=== PATIENT | female | born 1950 | race Caucasian/White ===

== ENCOUNTER 2020-12-11 20:18 | Inpatient (IN) | payer MEDICARE ==
[~2020-12-11] VITALS: Ht 165.1 cm; Wt 55.3 kg
[2020-12-11] MEDS ORDERED: diphenhydrAMINE HCL 25 MG CAPSULE PO PRN (22:00)
[2020-12-11] MEDS ORDERED: ALPRAZolam 0.5 MG TABLET PO PRN (22:00)
[2020-12-11] MEDS ORDERED: ALBUTEROL SULFATE 2.5 MG/3 ML NEBU. IH PRN (22:00)
[2020-12-11] MEDS ORDERED: DIPH25CA58 PO (22:06)
[2020-12-11] MEDS ORDERED: BENZ0.5T32 PO (22:06)
[2020-12-11] MEDS ORDERED: FLUT9.9S NS (22:06)
[2020-12-11] MEDS ORDERED: PYRI50CA PO (22:06)
[2020-12-11] MEDS ORDERED: OLAN5TAB99 PO (22:06)
[2020-12-11] MEDS ORDERED: ALPR0.5T PO (22:06)
[2020-12-11] MEDS ORDERED: VITA100T7 PO (22:06)
[2020-12-11] MEDS ORDERED: GINK30CA PO (22:06)
[2020-12-11] MEDS ORDERED: ALBU2.5V8 IH (22:06)
[2020-12-11] MEDS ORDERED: TRAZ-120 PO (22:06)
[2020-12-11 22:47] VITALS: BP 150/65
[2020-12-11] MEDS: BENZTROPINE MESYLATE 0.5 MG TABLET PO SCH (23:04)
[2020-12-11] MEDS: traZODone 50 MG TABLET. PO PRN (23:04)
[2020-12-11] MEDS: ALPRAZolam 0.5 MG TABLET PO SCH (23:04)
[2020-12-11] MEDS ORDERED: ACETAMINOPHEN 325 MG TABLET PO PRN (23:15)
[2020-12-11] MEDS ORDERED: MAG HYDROX/AL HYDROX/SIMETH 30 ML ORAL.SUSP PO PRN (23:15)
[2020-12-11] MEDS ORDERED: MAGNESIUM HYDROXIDE 2,400 MG/30 ML ORAL.SUSP. PO PRN (23:15)
[2020-12-11] MEDS ORDERED: METHYL SALICYLATE/MENTHOL TOPICAL OINTMENT 57GM TUBE. TP PRN (23:15)
--- NOTE | 2020-12-12 00:09 | NUR ---
Admission Note with Justification for Admission to [facility] Patient admitted to [facility] for protective oversight for emergency stabilization of acute psychiatric crisis. Pt admitted from: Home Mode of arrival: POV Accompanied By: Family Precipitating behaviors that initiated intake and admission: Pt having manic episodes, paranoid, delusional, has had multiple losses over the last few years of family members. Has had decreased appetite, and not sleeping. Daughter states this began 3 weeks ago and that she and her aunt moved in with the patient. Description of failure of out patient attempts at stabilization in previous setting list behavior and medication trials: Pt was started on Seroquel, she had significant difficulties including severe EPS from it's initiation. Behaviors and assessment findings upon admission: Pt having severe EPS, with involuntary movements, flicking feet, legs and arms flailing about in her chair and bed, unable to control movements or speak with any fluency. Plan: Admit for protective oversight for adjustment and stabilization of medications, behaviors and mood. Intense treatment regimen including groups, medication adjustments, therapy, consistent regimen for ADL's, self care, and sleep hygiene. Daily monitoring by Inpatient staff, Psychiatry, and Medical Physician.
[2020-12-12 06:44] VITALS: BP 177/66
[2020-12-12 07:04] LABS: BASO % 0 % (0-3); EOS # 0.1 x10^3/uL (0.0-0.7); EOS % 1 % (0-3); HEMATOCRIT 43.7 % (36.0-47.0); HEMOGLOBIN 14.9 g/dL (12.0-15.5); LYMPH # 3.7 x10^3/uL (1.0-4.8); LYMPH % 37 % (24-48); MEAN CORPUSCULAR HEMOGLOBIN 31 pg (25-35); MEAN CORPUSCULAR HGB CONC 34 g/dL (31-37); MEAN CORPUSCULAR VOLUME 92 fL (79-100); MONO # 0.7 x10^3/uL (0.0-1.1); MONO % 7 % (0-9); NEUT # 5.3 x10^3uL (1.8-7.7); NEUT % 54 % (31-73); PLATELET COUNT 403 x10^3/uL (140-400); RED BLOOD COUNT 4.76 x10^6/uL (3.50-5.40); WHITE BLOOD COUNT 9.8 x10^3/uL (4.0-11.0)
[2020-12-12 07:10] LABS: ALBUMIN 4.5 g/dL (3.4-5.0); ALBUMIN/GLOBULIN RATIO 1.3 (1.0-1.7); CALCIUM 9.6 mg/dL (8.5-10.1); CREATININE 0.9 mg/dL (0.6-1.0); GFR 61.5; MAGNESIUM 2.6 mg/dL (1.8-2.4); POTASSIUM 4.2 mmol/L (3.5-5.1); TOTAL BILIRUBIN 1.1 mg/dL (0.2-1.0); TOTAL PROTEIN 7.9 g/dL (6.4-8.2)
[2020-12-12 07:16] LABS: BILIRUBIN,URINE NEG (NEG); CLARITY,URINE CLEAR; COLOR,URINE YELLOW; GLUCOSE,URINE NEG (NEG); NITRITE,URINE NEG (NEG)
[2020-12-12 07:17] LABS: BACTERIA,URINE FEW /HPF (0-FEW); RBC,URINE 0 /HPF (0-2); WBC,URINE RARE /HPF (0-4)
[2020-12-12] MEDS: ALPRAZolam 0.5 MG TABLET PO SCH ×3 (08:15→21:39)
[2020-12-12] MEDS: VITAMIN E 200 UNIT CAPSULE. PO SCH (08:16)
[2020-12-12] MEDS: PYRIDOXINE 50 MG TABLET. PO SCH (08:16)
[2020-12-12] MEDS ORDERED: GINKGO BILOBA LEAF EXTRACT 30 MG PO SCH (09:00)
[2020-12-12] MEDS ORDERED: OMEP20CA16 PO (10:52)
--- NOTE | 2020-12-12 13:20 | NUR ---
ACTIVITY THERAPY ASSESSMENT completed based on notes,observation and interview. Pt was compliant and willing to answer questions. Pt was standing against the wall in the hallway. AT explained group that were offered on [facility] and asked pt what activities she enjoys. Pt said that she likes yoga, exercise and [employer] [place] [employer]. Pt was able to answer orientation questions without error. AT asked about her family and pt said that her three and half years ago. Pt reports that she also has one daughter that she has close contact with. Pt reports that she also spends a lot of her time with her sister and her grandchildren. 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 AT then asked pt what initiated her admission and she said that it was fear. She said she fears people, she is paranoid, and anxious. Pt talked about finding her daughters father after he committed suicide. She said that he left his head under the water in a rain barrel. She later found him and said that she did not know what to do. Pt said that she is still trying to process the that has occurred. Pt said that at times she blames herself but she is trying to get over it. AT consoled pt and she appeared to be in better spirits at the end of assessment. AT offered pt some leisure materials but politely declined. Pt was met by nurse, and she then asked for her inhaler. Initial goal aimed to increase stress management and relaxation skills. Pt will participate in at least five group Activity Therapy sessions per week.
[2020-12-12] MEDS: FLUTICASONE 50MCG/NASAL SPRAY 16GM BOTTLE. NS PRN (13:31)
[2020-12-12] MEDS: ALBUTEROL SULFATE 8GM INHALER. INH PRN (13:31)
[2020-12-12 14:14] LABS: THYROXINE 9.5 ug/dL (4.5-12.0)
[2020-12-12 15:37] LABS: THYROID STIM HORMONE (TSH) 1.933 uIU/mL (0.358-3.740)
[2020-12-12 16:01] VITALS: BP 107/74
[2020-12-12] MEDS ORDERED: BENZTROPINE MESYLATE 0.5 MG TABLET PO SCH (21:00)
[2020-12-12] MEDS: BENZTROPINE MESYLATE 0.5 MG TABLET PO SCH (21:39)
--- NOTE | 2020-12-12 22:07 | PDOC ---
Exam Note: Carlos Note: Please also refer to the separate dictated note~for this date of service dictated separately.~Patient seen individually. Discussed the patient with Nursing staff reviewed the chart.~Reviewed interim history and current functioning. Reviewed vital signs,~Labs/ Radiology~and current medications noted below. Continue current treatment with the changes noted in the dictated addendum note Assessment: Vital Signs/I&O: Vital Signs Date Time Temp Pulse Resp B/P (MAP) Pulse Ox O2 Delivery O2 Flow Rate FiO2 12/12/20 16:01 98.1 92 20 107/74 (85) 98 Room Air Labs: Laboratory Tests Test 12/12/20 06:00 12/12/20 06:18 12/12/20 08:11 Urine Collection Type Void Urine Color Yellow Urine Clarity Clear Urine pH 7.0 Urine Specific [place] 1.025 Urine Protein Neg (NEG-TRACE) Urine Glucose (UA) Neg mg/dL (NEG) Urine Ketones (Stick) Trace mg/dL (NEG) Urine Blood Neg (NEG) Urine Nitrite Neg (NEG) Urine Bilirubin Neg (NEG) Urine Urobilinogen Dipstick 1.0 mg/dL (0.2 mg/dL) Urine Leukocyte Esterase Small (NEG) Urine RBC 0 /HPF (0-2) Urine WBC Rare /HPF (0-4) Urine Bacteria Few /HPF (0-FEW) White Blood Count 9.8 x10^3/uL (4.0-11.0) Red Blood Count 4.76 x10^6/uL (3.50-5.40) Hemoglobin 14.9 g/dL (12.0-15.5) Hematocrit 43.7 % (36.0-47.0) Mean Corpuscular Volume 92 fL (79-100) Mean Corpuscular Hemoglobin 31 pg (25-35) Mean Corpuscular Hemoglobin Concent 34 g/dL (31-37) Red Cell Distribution Width 13.0 % (11.5-14.5) Platelet Count 403 x10^3/uL (140-400) H Neutrophils (%) (Auto) 54 % (31-73) Lymphocytes (%) (Auto) 37 % (24-48) Monocytes (%) (Auto) 7 % (0-9) Eosinophils (%) (Auto) 1 % (0-3) Basophils (%) (Auto) 0 % (0-3) Neutrophils # (Auto) 5.3 x10^3uL (1.8-7.7) Lymphocytes # (Auto) 3.7 x10^3/uL (1.0-4.8) Monocytes # (Auto) 0.7 x10^3/uL (0.0-1.1) Eosinophils # (Auto) 0.1 x10^3/uL (0.0-0.7) Basophils # (Auto) 0.0 x10^3/uL (0.0-0.2) D-Dimer (Gu[place]upe) 0.48 mg/L (0.00-0.50) Sodium Level 144 mmol/L (136-145) Potassium Level 4.2 mmol/L (3.5-5.1) Chloride Level 106 mmol/L (98-107) Carbon Dioxide Level 24 mmol/L (21-32) Anion Gap 14 (6-14) Blood Urea Nitrogen 19 mg/dL (7-20) Creatinine 0.9 mg/dL (0.6-1.0) Estimated GFR (Cockcroft-Gault) 61.5 BUN/Creatinine Ratio 21 (6-20) H Glucose Level 102 mg/dL (70-99) H Calcium Level 9.6 mg/dL (8.5-10.1) Magnesium Level 2.6 mg/dL (1.8-2.4) H Iron Level 72 ug/dL (50-170) Total Iron Binding Capacity 286 ug/dL (250-450) Iron Saturation 25 % (15-34) Total Bilirubin 1.1 mg/dL (0.2-1.0) H Aspartate Amino Transferase (AST) 21 U/L (15-37) Alanine Aminotransferase (ALT) 39 U/L (14-59) Alkaline Phosphatase 87 U/L (46-116) Total Protein 7.9 g/dL (6.4-8.2) Albumin 4.5 g/dL (3.4-5.0) Albumin/Globulin Ratio 1.3 (1.0-1.7) Triglycerides Level 168 mg/dL (0-150) H Cholesterol Level 271 mg/dL (0-200) H LDL Cholesterol, Calculated 179 mg/dL (0-100) H VLDL Cholesterol, Calculated 33 mg/dL (0-40) Non-HDL Cholesterol Calculated 212 mg/dL (0-129) H HDL Cholesterol 59 mg/dL (40-60) Cholesterol/HDL Ratio 4.0 Vitamin B12 Level 1257 pg/mL (247-911) H 25-Hydroxy Vitamin D Total 57.5 ng/mL (30-100) Thyroid Stimulating Hormone (TSH) 1.933 uIU/mL (0.358-3.740) Thyroxine (T4) 9.5 ug/dL (4.5-12.0) Total Triiodothyronine (TT3) 112 ng/dL (71-180) Treponema pallidum Antibody Nonreactive (Nonreactive) Glucose (Fingerstick) 108 mg/dL (70-99) H Current Medications: Meds: Laboratory Tests Test 12/12/20 06:00 12/12/20 06:18 12/12/20 08:11 Urine Collection Type Void Urine Color Yellow Urine Clarity Clear Urine pH 7.0 Urine Specific [place] 1.025 Urine Protein Neg Urine Glucose (UA) Neg mg/dL Urine Ketones (Stick) Trace mg/dL Urine Blood Neg Urine Nitrite Neg Urine Bilirubin Neg Urine Urobilinogen Dipstick 1.0 mg/dL Urine Leukocyte Esterase Small Urine RBC 0 /HPF Urine WBC Rare /HPF Urine Bacteria Few /HPF White Blood Count 9.8 x10^3/uL Red Blood Count 4.76 x10^6/uL Hemoglobin 14.9 g/dL Hematocrit 43.7 % Mean Corpuscular Volume 92 fL Mean Corpuscular Hemoglobin 31 pg Mean Corpuscular Hemoglobin Concent 34 g/dL Red Cell Distribution Width 13.0 % Platelet Count 403 x10^3/uL Neutrophils (%) (Auto) 54 % Lymphocytes (%) (Auto) 37 % Monocytes (%) (Auto) 7 % Eosinophils (%) (Auto) 1 % Basophils (%) (Auto) 0 % Neutrophils # (Auto) 5.3 x10^3uL Lymphocytes # (Auto) 3.7 x10^3/uL Monocytes # (Auto) 0.7 x10^3/uL Eosinophils # (Auto) 0.1 x10^3/uL Basophils # (Auto) 0.0 x10^3/uL D-Dimer ([place]) 0.48 mg/L Sodium Level 144 mmol/L Potassium Level 4.2 mmol/L Chloride Level 106 mmol/L Carbon Dioxide Level 24 mmol/L Anion Gap 14 Blood Urea Nitrogen 19 mg/dL Creatinine 0.9 mg/dL Estimated GFR (Cockcroft-Gault) 61.5 BUN/Creatinine Ratio 21 Glucose Level 102 mg/dL Calcium Level 9.6 mg/dL Magnesium Level 2.6 mg/dL Iron Level 72 ug/dL Total Iron Binding Capacity 286 ug/dL Iron Saturation 25 % Total Bilirubin 1.1 mg/dL Aspartate Amino Transf (AST/SGOT) 21 U/L Alanine Aminotransferase (ALT/SGPT) 39 U/L Alkaline Phosphatase 87 U/L Total Protein 7.9 g/dL Albumin 4.5 g/dL Albumin/Globulin Ratio 1.3 Triglycerides Level 168 mg/dL Cholesterol Level 271 mg/dL LDL Cholesterol, Calculated 179 mg/dL VLDL Cholesterol, Calculated 33 mg/dL Non-HDL Cholesterol Calculated 212 mg/dL HDL Cholesterol 59 mg/dL Cholesterol/HDL Ratio 4.0 Vitamin B12 Level 1257 pg/mL 25-Hydroxy Vitamin D Total 57.5 ng/mL Thyroid Stimulating Hormone (TSH) 1.933 uIU/mL Thyroxine (T4) 9.5 ug/dL Total Triiodothyronine 112 ng/dL Treponema pallidum Antibody Nonreactive Glucose (Fingerstick) 108 mg/dL Current Medications Medications (Trade) Dose Ordered Sig/Cathryn Route PRN Reason Start Time Stop Time Status Last Admin Dose Admin Albuterol Sulfate (Ventolin) 90 mg PRN QID PRN IH wheezing 12/11/20 22:00 UNV Alprazolam (Xanax) 0.5 mg PRN TID PRN PO ANXIETY / AGITATION 12/11/20 22:00 12/11/20 22:45 DC Benztropine Mesylate (Cogentin) 0.5 mg HS PO 12/12/20 21:00 12/11/20 22:45 DC Diphenhydramine HCl (Benadryl) 25 mg PRN Q4HRS PRN PO ANXIETY / AGITATION 12/11/20 22:00 Olanzapine (ZyPREXA ZYDIS) 2.5 mg PRN Q2HRS PRN PO ANXIETY / AGITATION 12/11/20 22:00 12/12/20 05:58 Trazodone HCl (Desyrel) 50 mg PRN QHS PRN PO INSOMNIA, MAY REPEAT X2 12/11/20 22:00 12/11/20 23:04 Fluticasone Propionate (Flonase) 2 spray PRN DAILY PRN NS ALLERGIES 12/11/20 22:30 12/12/20 13:31 Non-Formulary Medication (Ginkgo Biloba [place] Extract (Ginkgo Biloba)) 30 mg DAILY PO 12/12/20 09:00 UNV Pyridoxine HCl (Vitamin B-6) 50 mg DAILY PO 12/12/20 09:00 12/12/20 08:16 Vitamin E (Vitamin E) 200 unit DAILY PO 12/12/20 09:00 12/12/20 08:16 Albuterol Sulfate (Ventolin Hfa Inhaler) 2 puff PRN QID PRN INH SHORTNESS OF BREATH 12/11/20 22:30 12/12/20 13:31 Alprazolam (Xanax) 0.5 mg TID PO 12/11/20 22:45 12/12/20 21:39 Benztropine Mesylate (Cogentin) 0.5 mg HS PO 12/11/20 22:45 12/12/20 21:39 Acetaminophen (Tylenol) 650 mg PRN Q6HRS PRN PO MILD PAIN / TEMP > 100.3'F 12/11/20 23:15 Multi-Ingredient Ointment (Analgesic [place]) 1 dinora PRN QID PRN TP MUSCLE PAIN 12/11/20 23:15 Al Hydroxide/Mg Hydroxide (Mylanta Plus Xs) 15 ml PRN AFTMEALHC PRN PO DYSPEPSIA 12/11/20 23:15 Magnesium Hydroxide (Milk Of Magnesia) 2,400 mg PRN QHS PRN PO CONSTIPATION 12/11/20 23:15 Pantoprazole Sodium (Protonix) 40 mg DAILYAC PO 12/13/20 07:30 Current Medications Medications (Trade) Dose Ordered Sig/Cathryn Route PRN Reason Start Time Stop Time Status Last Admin Dose Admin Fluticasone Propionate (Flonase) 2 spray PRN DAILY PRN NS ALLERGIES 12/11/20 22:30 12/12/20 13:31 Pyridoxine HCl (Vitamin B-6) 50 mg DAILY PO 12/12/20 09:00 12/12/20 08:16 Vitamin E (Vitamin E) 200 unit DAILY PO 12/12/20 09:00 12/12/20 08:16 Albuterol Sulfate (Ventolin Hfa Inhaler) 2 puff PRN QID PRN INH SHORTNESS OF BREATH 12/11/20 22:30 12/12/20 13:31 Alprazolam (Xanax) 0.5 mg TID PO 12/11/20 22:45 12/12/20 21:39 Benztropine Mesylate (Cogentin) 0.5 mg HS PO 12/11/20 22:45 12/12/20 21:39 I have reviewed the current psychotropics carefully including drug interactions. Risk benefit ratio favors no change other than as noted in my dictated progress note. ERON MEDRANO MD Dec 12, 2020 22:07
[2020-12-13 01:17] LABS: HEMOGLOBIN A1C 5.5 % (4.8-5.6)
--- NOTE | 2020-12-13 02:16 | CONS ---
DATE OF CONSULTATION: 12/12/2020 ATTENDING PHYSICIAN: Dr. Medrano and Dr. Gunderson. CHIEF COMPLAINT: We are asked to see this patient for medical consultation. 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 She has been having insomnia, agitated, psychotic, experiences some delusional behavior and paranoid, thinking people are trying to kill her. She has had poor intake. She has tried different medicines as an outpatient without any improvement. She is admitted for further inpatient care. PAST MEDICAL HISTORY: Significant for depression, hyperlipidemia, fibromyalgia, gastroesophageal reflux disease, and degenerative arthritis. ALLERGIES: She has no known drug allergies. CURRENT MEDICATIONS: Reviewed. She was scheduled to take albuterol, alprazolam, diphenhydramine, fluticasone nasal spray, ginkgo biloba, Zyprexa, omeprazole, vitamin B6, trazodone, and vitamin E. SOCIAL HISTORY: She is a nonsmoker, nondrinker. FAMILY HISTORY: Noncontributory. 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 She had lived in [place] for many years before moving in with her daughter in [place]. REVIEW OF SYSTEMS: Significant for the psychiatric issues. No COVID exposure. All other systems reviewed and turned to be negative. PHYSICAL EXAMINATION: GENERAL: When I saw her, this is a very alert, pleasant female who was ____ in her speech and gave a relevant history. VITAL SIGNS: Initial vital signs showed a blood pressure of 150/65 mmHg, pulse is 75 and regular. She was afebrile, oxygen saturation 98% on room air. HEENT: Head is without trauma. Pupils are reactive. Sclerae is nonicteric. Oropharynx is clear. NECK: Supple, no bruits. LUNGS: Otherwise, clear to auscultation. CARDIOVASCULAR: Showed regular heart tones. No gallops. Peripheral pulses are palpable and full. ABDOMEN: Soft, scaphoid, nontender, no organomegaly. Bowel sounds were hypoactive. EXTREMITIES: Show no cyanosis or edema. NEUROLOGIC: Focally intact. Speech is fluent and fully ambulatory. SKIN: Warm and dry. PERTINENT LABORATORY STUDIES: Her hemoglobin on admission was 14.9 g/dL with a white count of 9800. Electrolytes all within normal range. Nonfasting blood sugar 108. Transaminases were within normal range. ASSESSMENT: 1. A 70-year-old female with paranoid behavior with delusions. 2. Probable dementia. 3. Generalized anxiety disorder. 4. Gastroesophageal reflux disease. PLAN/RECOMMENDATIONS: 1. The patient is stable from medical standpoint. 2. I reviewed her medications and they should be continued the same dosages. Thank you again for asking me to see the patient for medical consultation. We should gladly follow along during her inpatient course. LAURA/FAZAL DR: Christos TID: [id number] CC: ERON MEDRANO MD
[2020-12-13 05:09] VITALS: BP 101/62
[2020-12-13] MEDS: PYRIDOXINE 50 MG TABLET. PO SCH (09:00)
[2020-12-13] MEDS: PANTOPRAZOLE 40 MG TABLET. PO SCH (09:09)
[2020-12-13] MEDS: VITAMIN E 200 UNIT CAPSULE. PO SCH (09:09)
[2020-12-13] MEDS: ALPRAZolam 0.5 MG TABLET PO SCH ×3 (09:09→20:26)
--- NOTE | 2020-12-13 10:52 | NUR ---
Pt has been appropriate this shift. A&Ox4, she takes significant pauses when answering assessment questions. Absent of AI/HI/VH/AH/delusions at this time, she denies pain when asked. She has noticeable shaking/jerking in her torso during assessment, daughter states the shaking did not start until shortly after starting Seroquel at home and family believes she has EPS. Will pass to Dr Alcaraz during rounds. Pt is compliant with whole medications. After breakfast she retired back to bed and has been napping. Plan of care continues, will pass to next shift. Addendum: 12/13/20 at 1057 by RODRIGO MONTIEL RN Edit: Absent of ALPHONSE
[2020-12-13 15:52] VITALS: BP 139/79
[2020-12-13] MEDS: BENZTROPINE MESYLATE 0.5 MG TABLET PO SCH (20:26)
--- NOTE | 2020-12-13 22:00 | PDOC ---
Exam Note: Carlos Note: Please also refer to the separate dictated note~for this date of service dictated separately.~Patient seen individually. Discussed the patient with Nursing staff reviewed the chart.~Reviewed interim history and current functioning. Reviewed vital signs,~Labs/ Radiology~and current medications noted below. Continue current treatment with the changes noted in the dictated addendum note Assessment: Vital Signs/I&O: Vital Signs Date Time Temp Pulse Resp B/P (MAP) Pulse Ox O2 Delivery O2 Flow Rate FiO2 12/13/20 15:52 97.0 98 20 139/79 (99) 97 12/12/20 16:01 Room Air I & O 12/12/20 12/12/20 12/13/20 15:00 23:00 07:00 Intake Total 300 ml 480 ml Balance 300 ml 480 ml Labs: Laboratory Tests Test 12/13/20 07:12 Glucose (Fingerstick) 96 mg/dL (70-99) Current Medications: Meds: Laboratory Tests Test 12/13/20 07:12 Glucose (Fingerstick) 96 mg/dL Current Medications Medications (Trade) Dose Ordered Sig/Cathryn Route PRN Reason Start Time Stop Time Status Last Admin Dose Admin Albuterol Sulfate (Ventolin) 90 mg PRN QID PRN IH wheezing 12/11/20 22:00 UNV Alprazolam (Xanax) 0.5 mg PRN TID PRN PO ANXIETY / AGITATION 12/11/20 22:00 12/11/20 22:45 DC Benztropine Mesylate (Cogentin) 0.5 mg HS PO 12/12/20 21:00 12/11/20 22:45 DC Diphenhydramine HCl (Benadryl) 25 mg PRN Q4HRS PRN PO ANXIETY / AGITATION 12/11/20 22:00 Olanzapine (ZyPREXA ZYDIS) 2.5 mg PRN Q2HRS PRN PO ANXIETY / AGITATION 12/11/20 22:00 12/12/20 05:58 Trazodone HCl (Desyrel) 50 mg PRN QHS PRN PO INSOMNIA, MAY REPEAT X2 12/11/20 22:00 12/11/20 23:04 Fluticasone Propionate (Flonase) 2 spray PRN DAILY PRN NS ALLERGIES 12/11/20 22:30 12/12/20 13:31 Non-Formulary Medication (Ginkgo Biloba [place] Extract (Ginkgo Biloba)) 30 mg DAILY PO 12/12/20 09:00 UNV Pyridoxine HCl (Vitamin B-6) 50 mg DAILY PO 12/12/20 09:00 12/13/20 09:00 Vitamin E (Vitamin E) 200 unit DAILY PO 12/12/20 09:00 12/13/20 09:09 Albuterol Sulfate (Ventolin Hfa Inhaler) 2 puff PRN QID PRN INH SHORTNESS OF BREATH 12/11/20 22:30 12/12/20 13:31 Alprazolam (Xanax) 0.5 mg TID PO 12/11/20 22:45 12/13/20 20:26 Benztropine Mesylate (Cogentin) 0.5 mg HS PO 12/11/20 22:45 12/13/20 20:26 Acetaminophen (Tylenol) 650 mg PRN Q6HRS PRN PO MILD PAIN / TEMP > 100.3'F 12/11/20 23:15 Multi-Ingredient Ointment (Analgesic [place]) 1 dinora PRN QID PRN TP MUSCLE PAIN 12/11/20 23:15 Al Hydroxide/Mg Hydroxide (Mylanta Plus Xs) 15 ml PRN AFTMEALHC PRN PO DYSPEPSIA 12/11/20 23:15 Magnesium Hydroxide (Milk Of Magnesia) 2,400 mg PRN QHS PRN PO CONSTIPATION 12/11/20 23:15 Pantoprazole Sodium (Protonix) 40 mg DAILYAC PO 12/13/20 07:30 12/13/20 09:09 Current Medications Medications (Trade) Dose Ordered Sig/Cathryn Route PRN Reason Start Time Stop Time Status Last Admin Dose Admin Pantoprazole Sodium (Protonix) 40 mg DAILYAC PO 12/13/20 07:30 12/13/20 09:09 I have reviewed the current psychotropics carefully including drug interactions. Risk benefit ratio favors no change other than as noted in my dictated progress note. Diagnosis: Problems: (1) Anxiety disorder, unspecified ERON MEDRANO MD Dec 13, 2020 22:00
--- NOTE | 2020-12-13 23:07 | HP ---
ADMIT DATE: 12/12/2020 PSYCHIATRIC ADMISSION HISTORY AND EVALUATION This is a late entry, date of service, 12/12/2020, covers the elements not covered in my initial note. I met with the patient evening of 12/12/2020 on Telehealth rounds with Glendy Mares RN. Telehealth rounds have been instituted due to COVID-19 positive cases on the unit once again, both in 3 patients and 2 staff members. IDENTIFYING DATA: The patient is a 70-year-old female referred from home by her primary care physician on account of appearing manic, paranoid, delusional. Reportedly, she has had multiple losses in her family, with her passing away with questionable suicide and losses of other family members. She has had poor appetite, poor sleep. Has been unable to live alone independently starting three weeks back prior to which [place] [facility]. Currently, she is living for the past 3 weeks with her daughter and sister. CHIEF COMPLAINT: "Something changed about 3 weeks ago. I don't know what happened." HISTORY OF PRESENT ILLNESS: The patient states she has never been treated for a psychiatric disorder in the past. For the past three weeks, she has appeared paranoid, psychotic, quite obsessive, anxious, confused with poor sleep and appetite, marked anxiety, obsessiveness and psychotic symptoms. No active suicidal or homicidal ideation. She has been intermittently hyperverbal. PAST PSYCHIATRIC HISTORY: As above. MEDICAL HISTORY: Asthma, hyperlipidemia, fibromyalgia, GERD, osteoarthritis, history of paroxysmal ventricular contractions. Accu-Cheks: None. CODE STATUS: Full code. ALLERGIES: The patient was prescribed SEROQUEL at home and states she developed tremors, extrapyramidal side effects from it and feels she is allergic to it. MRI head was done recently reportedly was unremarkable. FAMILY HISTORY: Noncontributory. SOCIAL HISTORY: As noted above. No alcohol; drug abuse; physical, sexual or elder abuse. She is not known to be a perpetrator. Reaction to hospitalization: The patient is well oriented and accepting of this. According to Glendy Mares RN at admission on 12/11/2020, the patient was extremely disorganized, confused, paranoid and all this had up by the time I saw her on the evening of 12/12/2020. REVIEW OF SYSTEMS: No CV, , pulmonary, eye, ENT system symptoms on review. MENTAL STATUS EXAM: The patient is reasonably oriented. Speech coherent, rapid at times. Abstraction fair. Computation impaired. Language function intact. Attention span short. Mood and affect remains labile, anxious, hyperverbal. No suicidal or homicidal ideation. LABORATORY DATA: Reviewed. IMPRESSION: History of major depressive disorder, recurrent versus bipolar disorder, mixed episode with psychotic features; mild cognitive impairment; anxiety disorder, unspecified, rule out obsessive compulsive disorder. Rest diagnoses as above. PLAN: Admit to geropsychiatry unit at [facility]. I will see the patient daily individually from a psychiatric standpoint, medical followup with Dr. Aleman/Dr. Gunderson. Continue current psychotropics. Perhaps consult Dr. 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 We will consider starting on Cymbalta or Wellbutrin. Considering mood stabilizer, perhaps Lamictal post baseline assessment. ESTIMATED LENGTH OF STAY: 10-12 days. DISPOSITION PLAN: Discharge back home with family if clinically appropriate. MIKE/EKT DR: MIKE/benigno TID: [id number]
--- NOTE | 2020-12-13 23:17 | NUR ---
Patient is located in the day room for assessments and medications. She does not answer questions verbally when asked, only nodding her head. She is jerking her legs sporadically. Compliant with medications whole. Denies SI. Denies any pain or discomfort. She appears to be sleeping comfortably at present time. Will continue to monitor.
[2020-12-14] MEDS: VITAMIN E 200 UNIT CAPSULE. PO SCH (05:08)
[2020-12-14] MEDS: ALPRAZolam 0.5 MG TABLET PO SCH ×3 (05:08→19:55)
[2020-12-14] MEDS: PYRIDOXINE 50 MG TABLET. PO SCH (05:08)
[2020-12-14] MEDS: PANTOPRAZOLE 40 MG TABLET. PO SCH (05:08)
[2020-12-14 06:20] VITALS: BP 129/57
--- NOTE | 2020-12-14 08:44 | PDOC ---
Exam Note: Carlos Note: This note is a late entry for 12/13/2020 covers elements not covered in my initial note. Subjective: The patient was reviewed on telehealth rounds on 12/13/2020 due to the COVID-19 pandemic. Discussed with Stephenie RUTH and reviewed the chart. She slept for 7 hours previous night. Previous evening the patient was somewhat delusional and anxious. Today she remains alert and oriented. She continues to have some involuntarily movements and we will consult Dr. Newberry, Neurology for this. Reportedly the daughter feels this is contributed by the Seroquel though it seems very unlikely given the dosage of Seroquel she was on the duration and the fact it persisted for several days despite the stopping the Seroquel and using Cogentin and Benadryl. Last evening as I met with her she was very verbal, interactive, somewhat hyperverbal at times, appropriate coherent history. Today she had difficulties connecting her thoughts and would not respond verbally as I questioned her about her day and orientation. Review of Systems: No CV, , pulmonary, eye, ENT system symptoms on review but she is not forthcoming as I questioned her. Mental Status Exam: The patient is alert and oriented to herself and situation. Speech moderate to marked latency, not verbally responsive. Abstraction fair. Computation impaired. Language function intact. Attention span short. Mood and affect withdrawn. Laboratory Data: Reviewed. Impression: Major depressive disorder with psychotic features. Anxiety disorder unspecified. Rule out bipolar disorder mixed with psychotic features. Rule out mild cognitive impairment. Rest unchanged from admission. Plan: Continue current psychotropics including Xanax 0.5 mg t.i.d., Cogentin 0.5 mg h.s., Benadryl, Zyprexa, and trazodone p.r.n. We will go ahead and start her on Cymbalta 30 mg a day for her mood and anxiety symptoms. Consider restarting Seroquel or perhaps Risperdal, Geodon, or Abilify for her questionable psychotic symptoms. We will make further adjustments as clinically indicated. Assessment: Vital Signs/I&O: Vital Signs Date Time Temp Pulse Resp B/P (MAP) Pulse Ox O2 Delivery O2 Flow Rate FiO2 12/14/20 06:20 97.7 68 16 129/57 (81) 96 12/12/20 16:01 Room Air I & O 12/13/20 12/13/20 12/14/20 15:00 23:00 07:00 Intake Total 840 ml 720 ml Balance 840 ml 720 ml Labs: Laboratory Tests Test 12/14/20 07:16 Glucose (Fingerstick) 85 mg/dL (70-99) Current Medications: Meds: Laboratory Tests Test 12/14/20 07:16 Glucose (Fingerstick) 85 mg/dL Current Medications Medications (Trade) Dose Ordered Sig/Cathryn Route PRN Reason Start Time Stop Time Status Last Admin Dose Admin Albuterol Sulfate (Ventolin) 90 mg PRN QID PRN IH wheezing 12/11/20 22:00 UNV Alprazolam (Xanax) 0.5 mg PRN TID PRN PO ANXIETY / AGITATION 12/11/20 22:00 12/11/20 22:45 DC Benztropine Mesylate (Cogentin) 0.5 mg HS PO 12/12/20 21:00 12/11/20 22:45 DC Diphenhydramine HCl (Benadryl) 25 mg PRN Q4HRS PRN PO ANXIETY / AGITATION 12/11/20 22:00 Olanzapine (ZyPREXA ZYDIS) 2.5 mg PRN Q2HRS PRN PO ANXIETY / AGITATION 12/11/20 22:00 12/12/20 05:58 Trazodone HCl (Desyrel) 50 mg PRN QHS PRN PO INSOMNIA, MAY REPEAT X2 12/11/20 22:00 12/11/20 23:04 Fluticasone Propionate (Flonase) 2 spray PRN DAILY PRN NS ALLERGIES 12/11/20 22:30 12/12/20 13:31 Non-Formulary Medication (Ginkgo Biloba [place] Extract (Ginkgo Biloba)) 30 mg DAILY PO 12/12/20 09:00 UNV Pyridoxine HCl (Vitamin B-6) 50 mg DAILY PO 12/12/20 09:00 12/14/20 05:08 Vitamin E (Vitamin E) 200 unit DAILY PO 12/12/20 09:00 12/14/20 05:08 Albuterol Sulfate (Ventolin Hfa Inhaler) 2 puff PRN QID PRN INH SHORTNESS OF BREATH 12/11/20 22:30 12/12/20 13:31 Alprazolam (Xanax) 0.5 mg TID PO 12/11/20 22:45 12/14/20 05:08 Benztropine Mesylate (Cogentin) 0.5 mg HS PO 12/11/20 22:45 12/13/20 20:26 Acetaminophen (Tylenol) 650 mg PRN Q6HRS PRN PO MILD PAIN / TEMP > 100.3'F 12/11/20 23:15 Multi-Ingredient Ointment (Analgesic [place]) 1 dinora PRN QID PRN TP MUSCLE PAIN 12/11/20 23:15 Al Hydroxide/Mg Hydroxide (Mylanta Plus Xs) 15 ml PRN AFTMEALHC PRN PO DYSPEPSIA 12/11/20 23:15 Magnesium Hydroxide (Milk Of Magnesia) 2,400 mg PRN QHS PRN PO CONSTIPATION 12/11/20 23:15 Pantoprazole Sodium (Protonix) 40 mg DAILYAC PO 12/13/20 07:30 12/14/20 05:08 I have reviewed the current psychotropics carefully including drug interactions. Risk benefit ratio favors no change other than as noted in my dictated progress note. Diagnosis: Problems: (1) Major depressive disorder with psychotic features (2) Anxiety disorder, unspecified (3) Bipolar disorder, current episode mixed, severe, with psychotic features (4) Mild cognitive impairment ERON MEDRANO MD Dec 14, 2020 08:44
--- NOTE | 2020-12-14 15:47 | NUR ---
Assumed pt care this am. Pt has been calm and cooperative for assessments and cares. Pt takes medication whole without difficulty. Pt still exhibiting jerky movements and startles easily. Pt has not verbalized anything today, the only questioned she has answered out loud was her birthday. She has nodded in answer to questions though. She seems as though she wants to talk but cannot find the words or how to say it. Pt has stayed in her room except to come out for meals. Will continue to monitor.
[2020-12-14 16:17] VITALS: BP 129/87
[2020-12-14] MEDS: OLANZapine 2.5 MG TABLET PO SCH (19:55)
[2020-12-14] MEDS: BENZTROPINE MESYLATE 0.5 MG TABLET PO SCH (19:55)
--- NOTE | 2020-12-14 21:19 | NUR ---
Patient is located in her room for assessments and medications, awake in bed. Answers questions only occasionally with one word answers, but mostly nods yes or no to assessment questions. Continues to have involuntary movements, but they seem improved from this morning. Compliant with medications whole. Denies SI. Denies any pain or discomfort. She appears to be sleeping comfortably at present time. Will continue to monitor.
--- NOTE | 2020-12-14 21:56 | PDOC ---
Exam Note: Carlos Note: Please also refer to the separate dictated note~for this date of service dictated separately.~Patient seen individually. Discussed the patient with Nursing staff reviewed the chart.~Reviewed interim history and current functioning. Reviewed vital signs,~Labs/ Radiology~and current medications noted below. Continue current treatment with the changes noted in the dictated addendum note Assessment: Vital Signs/I&O: Vital Signs Date Time Temp Pulse Resp B/P (MAP) Pulse Ox O2 Delivery O2 Flow Rate FiO2 12/14/20 16:17 97.8 70 18 129/87 (101) 95 12/12/20 16:01 Room Air I & O 12/13/20 12/13/20 12/14/20 15:00 23:00 07:00 Intake Total 840 ml 720 ml Balance 840 ml 720 ml Labs: Laboratory Tests Test 12/14/20 07:16 Glucose (Fingerstick) 85 mg/dL (70-99) Current Medications: Meds: Laboratory Tests Test 12/14/20 07:16 Glucose (Fingerstick) 85 mg/dL Current Medications Medications (Trade) Dose Ordered Sig/Cathryn Route PRN Reason Start Time Stop Time Status Last Admin Dose Admin Albuterol Sulfate (Ventolin) 90 mg PRN QID PRN IH wheezing 12/11/20 22:00 UNV Alprazolam (Xanax) 0.5 mg PRN TID PRN PO ANXIETY / AGITATION 12/11/20 22:00 12/11/20 22:45 DC Benztropine Mesylate (Cogentin) 0.5 mg HS PO 12/12/20 21:00 12/11/20 22:45 DC Diphenhydramine HCl (Benadryl) 25 mg PRN Q4HRS PRN PO ANXIETY / AGITATION 12/11/20 22:00 Olanzapine (ZyPREXA ZYDIS) 2.5 mg PRN Q2HRS PRN PO ANXIETY / AGITATION 12/11/20 22:00 12/12/20 05:58 Trazodone HCl (Desyrel) 50 mg PRN QHS PRN PO INSOMNIA, MAY REPEAT X2 12/11/20 22:00 12/11/20 23:04 Fluticasone Propionate (Flonase) 2 spray PRN DAILY PRN NS ALLERGIES 12/11/20 22:30 12/12/20 13:31 Non-Formulary Medication (Ginkgo Biloba [place] Extract (Ginkgo Biloba)) 30 mg DAILY PO 12/12/20 09:00 UNV Pyridoxine HCl (Vitamin B-6) 50 mg DAILY PO 12/12/20 09:00 12/14/20 05:08 Vitamin E (Vitamin E) 200 unit DAILY PO 12/12/20 09:00 12/14/20 05:08 Albuterol Sulfate (Ventolin Hfa Inhaler) 2 puff PRN QID PRN INH SHORTNESS OF BREATH 12/11/20 22:30 12/12/20 13:31 Alprazolam (Xanax) 0.5 mg TID PO 12/11/20 22:45 12/14/20 19:55 Benztropine Mesylate (Cogentin) 0.5 mg HS PO 12/11/20 22:45 12/14/20 19:55 Acetaminophen (Tylenol) 650 mg PRN Q6HRS PRN PO MILD PAIN / TEMP > 100.3'F 12/11/20 23:15 Multi-Ingredient Ointment (Analgesic [place]) 1 dinora PRN QID PRN TP MUSCLE PAIN 12/11/20 23:15 Al Hydroxide/Mg Hydroxide (Mylanta Plus Xs) 15 ml PRN AFTMEALHC PRN PO DYSPEPSIA 12/11/20 23:15 Magnesium Hydroxide (Milk Of Magnesia) 2,400 mg PRN QHS PRN PO CONSTIPATION 12/11/20 23:15 Pantoprazole Sodium (Protonix) 40 mg DAILYAC PO 12/13/20 07:30 12/14/20 05:08 Olanzapine (ZyPREXA) 5 mg HS PO 12/14/20 21:00 12/14/20 19:55 Duloxetine HCl (Cymbalta) 30 mg DAILY PO 12/15/20 09:00 Current Medications Medications (Trade) Dose Ordered Sig/Cathryn Route PRN Reason Start Time Stop Time Status Last Admin Dose Admin Olanzapine (ZyPREXA) 5 mg HS PO 12/14/20 21:00 12/14/20 19:55 I have reviewed the current psychotropics carefully including drug interactions. Risk benefit ratio favors no change other than as noted in my dictated progress note. Diagnosis: Problems: (1) Anxiety disorder, unspecified (2) Major depressive disorder with psychotic features (3) Mild cognitive impairment (4) Bipolar disorder, current episode mixed, severe, with psychotic features ERON MEDRANO MD Dec 14, 2020 21:56
[2020-12-15 05:49] VITALS: BP 144/85
--- NOTE | 2020-12-15 06:32 | PDOC ---
Exam Note: Carlos Note: This note is a late entry for 12/14/2020 covers elements not covered in my initial note. Subjective: The patient was seen individually in the evening of 12/14/2020 with Essie RUTH, discussed and reviewed the chart. She slept for 7-1/2 hours previous night. The patient has been non-verbal. Often responses are monosyllabic. She seeing Dr. Newberry for movement disorder, results of consultation are awaited. She seems to startle very easily, anxious. Oral intake is poor. She seems paranoid, suspicious, scanning the environment. I met with her at some length in her room. Couple of evenings back when I met with her she was fully oriented and this presentation for the last about 40 hour s is similar to how it was when she was first admitted. Review of Systems: Positive for abnormal movements and she is anxious and easily startled. No CV, , pulmonary, eye, ENT system symptoms on review. Mental Status Exam: The patient is reasonably oriented but difficult to assess since she is not very verbal. Speech often response is monosyllabic. Abstraction fair. Computation impaired. Language function intact. Attention span short. Mood and affect somewhat withdrawn. As I initially entered her room she was standing by he panoramic window looking quite sad and out in the distance and anxious. Laboratory Data: Reviewed. Impression: Major depressive disorder with psychotic features. Anxiety disorder unspecified. Rule out bipolar disorder depressed with psychotic features. Mild cognitive impairment. Plan: Given the patients mood symptoms, we will start her on Cymbalta 30 mg a day for her mood and anxiety symptoms and she appears paranoid, somewhat suspicious, anxious with poor appetite. We will add Zyprexa 5 mg p.o. h.s. Continue rest of the psychotropics. Adjust further as clinically indicated. Assessment: Vital Signs/I&O: Vital Signs Date Time Temp Pulse Resp B/P (MAP) Pulse Ox O2 Delivery O2 Flow Rate FiO2 12/15/20 05:49 96.6 61 16 144/85 (104) 100 12/12/20 16:01 Room Air I & O 12/14/20 12/14/20 12/15/20 15:00 23:00 07:00 Intake Total 240 ml 300 ml Balance 240 ml 300 ml Labs: Laboratory Tests Test 12/14/20 07:16 Glucose (Fingerstick) 85 mg/dL (70-99) Current Medications: Meds: Laboratory Tests Test 12/14/20 07:16 Glucose (Fingerstick) 85 mg/dL Current Medications Medications (Trade) Dose Ordered Sig/Cathryn Route PRN Reason Start Time Stop Time Status Last Admin Dose Admin Albuterol Sulfate (Ventolin) 90 mg PRN QID PRN IH wheezing 12/11/20 22:00 UNV Alprazolam (Xanax) 0.5 mg PRN TID PRN PO ANXIETY / AGITATION 12/11/20 22:00 12/11/20 22:45 DC Benztropine Mesylate (Cogentin) 0.5 mg HS PO 12/12/20 21:00 12/11/20 22:45 DC Diphenhydramine HCl (Benadryl) 25 mg PRN Q4HRS PRN PO ANXIETY / AGITATION 12/11/20 22:00 Olanzapine (ZyPREXA ZYDIS) 2.5 mg PRN Q2HRS PRN PO ANXIETY / AGITATION 12/11/20 22:00 12/12/20 05:58 Trazodone HCl (Desyrel) 50 mg PRN QHS PRN PO INSOMNIA, MAY REPEAT X2 12/11/20 22:00 12/11/20 23:04 Fluticasone Propionate (Flonase) 2 spray PRN DAILY PRN NS ALLERGIES 12/11/20 22:30 12/12/20 13:31 Non-Formulary Medication (Ginkgo Biloba [place] Extract (Ginkgo Biloba)) 30 mg DAILY PO 12/12/20 09:00 UNV Pyridoxine HCl (Vitamin B-6) 50 mg DAILY PO 12/12/20 09:00 12/14/20 05:08 Vitamin E (Vitamin E) 200 unit DAILY PO 12/12/20 09:00 12/14/20 05:08 Albuterol Sulfate (Ventolin Hfa Inhaler) 2 puff PRN QID PRN INH SHORTNESS OF BREATH 12/11/20 22:30 12/12/20 13:31 Alprazolam (Xanax) 0.5 mg TID PO 12/11/20 22:45 12/14/20 19:55 Benztropine Mesylate (Cogentin) 0.5 mg HS PO 12/11/20 22:45 12/14/20 19:55 Acetaminophen (Tylenol) 650 mg PRN Q6HRS PRN PO MILD PAIN / TEMP > 100.3'F 12/11/20 23:15 Multi-Ingredient Ointment (Analgesic [place]) 1 dinora PRN QID PRN TP MUSCLE PAIN 12/11/20 23:15 Al Hydroxide/Mg Hydroxide (Mylanta Plus Xs) 15 ml PRN AFTMEALHC PRN PO DYSPEPSIA 12/11/20 23:15 Magnesium Hydroxide (Milk Of Magnesia) 2,400 mg PRN QHS PRN PO CONSTIPATION 12/11/20 23:15 Pantoprazole Sodium (Protonix) 40 mg DAILYAC PO 12/13/20 07:30 12/14/20 05:08 Olanzapine (ZyPREXA) 5 mg HS PO 12/14/20 21:00 12/14/20 19:55 Duloxetine HCl (Cymbalta) 30 mg DAILY PO 12/15/20 09:00 Current Medications Medications (Trade) Dose Ordered Sig/Cathryn Route PRN Reason Start Time Stop Time Status Last Admin Dose Admin Olanzapine (ZyPREXA) 5 mg HS PO 12/14/20 21:00 12/14/20 19:55 I have reviewed the current psychotropics carefully including drug interactions. Risk benefit ratio favors no change other than as noted in my dictated progress note. Diagnosis: Problems: (1) Anxiety disorder, unspecified (2) Major depressive disorder with psychotic features (3) Mild cognitive impairment (4) Bipolar disorder, current episode mixed, severe, with psychotic features ERON MEDRANO MD Dec 15, 2020 06:32
[2020-12-15] MEDS: PYRIDOXINE 50 MG TABLET. PO SCH (08:01)
[2020-12-15] MEDS: PANTOPRAZOLE 40 MG TABLET. PO SCH (08:01)
[2020-12-15] MEDS: ALPRAZolam 0.5 MG TABLET PO SCH ×3 (08:01→20:35)
[2020-12-15] MEDS: VITAMIN E 200 UNIT CAPSULE. PO SCH (08:02)
[2020-12-15] MEDS ORDERED: DULoxetine HCL 30 MG CAPSULE.DR PO SCH (09:00)
--- NOTE | 2020-12-15 10:58 | NUR ---
Pt was withdrawn to her room and quiet for majority of the day. She did interact with nursing during medication administration times. Pt stated that she did not think she took medications or that many medications, so nurse explained to her what each medication was and what it was for. She then voiced her understanding and was then med compliant. Pt has been in her room since breakfast and keeping to herself. She denies any pain or discomfort today.
--- NOTE | 2020-12-15 15:35 | NUR ---
PSYCHOSOCIAL ASSESSMENT ADMISSION DATE: 12/11/20 CONTACT INFORMATION: DPOA/Guardian Contact Name: Sue Chapman Contact Address: [place] [address] Contact Phone #: ETHNIC ORIGIN: REASONS FOR ADMISSION: Agitated Confusion/Disoriented Delusions Sig. Change Sleep ADDITIONAL ADMISSION COMMENTS: According to the intake, pt has insomnia and agitation, psychotic expressions of self harm,delusional (thinks people are trying to kill her), depressed, poor intake of meals REASON FOR ADMISSION IN PATIENT/FAMILY'S OWN WORDS: Concerns of pt being Bipolar and not on the right medication. PATIENT/FAMILY EXPECTATIONS FOR ADMISSION: Medication management LIVING SITUATION: Patient lives with: Extended family Other living arrangements: Has been living with family for the next 3 weeks. Contact Name: Contact Address: Contact Phone #: Contact Fax #: FAMILY RELATIONS: Marital Status: # of Marriages: 2 # of Children: 1 [facility] Family Support: Concerned Cooperative Involved in DC Planning Additional Comments r/t Family: Pt has been 2x. Pt and her first had one child, Sue, and after 10 years of marriage. Pt then re- Isidro; they had no children together. Pt ex- committed suicide in which pt found him and her Isidro 3 years ago from Cancer. SIGNIFICANT PSYCHIATRIC/MEDICAL HISTORY: Psychiatric/Treatment History: This is pt first admission to [facility]. No prior admissions have been noted; however, pt has an outpt history at [facility] and an upcoming evaluation at [facility]. Pertinent Family History: Pt mother had a psychotic break in her early 90's and her grandmother in her 70's (catatonia) HISTORICAL DATA: Childhood Environment: Other-see below Childhood Environment Additional Comments: Pt dtr reported little to no information about pt upbringing. 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 As of late, she has been questioning her spirituality "none of this is real, I'm a fool, why did people let me believe in all of this". Sexual orientation: Heterosexual Educational Level: Pt graduated with her B.A in Elementary Education Past/Present Interests/Hobbies: Pt likes to play Scrabble and Dominos, loves to be social Financial support/resources: Residential/Pension Social Security Monthly income: Person handling finances: Pt handles her own finances Do you have a history of legal problems: N Cultural considerations: None SOCIAL RELATIONSHIPS-CURRENT/PAST: Psychiatrist: None PCP: Dr. Aleisha Hendrix Counselor/Therapist: None Veterans' Administration: None Support Group: None Horse Racer/Porcelain Enamel Installer: None Other relationships: appt for services scheduled at the [facility] STRENGTHS & WEAKNESSES: Patient's strengths: Good family support Good verbal skills Education level Other patient strengths: Patient's weaknesses: Lack of housing Lack of resources Impulsive Other patient weaknesses: PRELIMINARY PLAN OF TREATMENT: Preliminary plan: Dec. Hallucination/Delus Medication Stabilization Monitor Med Effects Other preliminary treatment comments: DISCHARGE PLANNING: Discharge planning/disposition: Current Living Arrange. Additional discharge needs identified: ADDITIONAL INFORMATION: Other Pertinent Data: RADHA completed PSA with pt dtr Sue. Pt dtr reports that for the last 3 weeks, pt has been staying with either herself of pt friends due to having a "psychotic break". Pt dtr reports that she is Bipolar II herself and is currently on Lamictal. Pt dtr just wants to make sure the psychiatrist talks to her about the medications and wants to make sure she knows the game plan for them. Pt dtr stated "we have a close friend who is in psych and I have talked to and read enough about things to understand what is going on". RADHA informed pt dtr that she will be called for treatment team and will plan to call pt dtr on .
[2020-12-15 15:44] VITALS: BP 171/81
[2020-12-15] MEDS: BENZTROPINE MESYLATE 0.5 MG TABLET PO SCH (20:36)
[2020-12-15] MEDS: OLANZapine 2.5 MG TABLET PO SCH (20:36)
--- NOTE | 2020-12-15 21:54 | NUR ---
Nursing Note Pt seems to be more clear this pm. Pleasant and cooperative. Talking on phone with her daughter. No complaints compliant with meds and assessment.
--- NOTE | 2020-12-15 22:15 | PDOC ---
Exam Note: Carlos Note: Please also refer to the separate dictated note~for this date of service dictated separately.~Patient seen individually. Discussed the patient with Nursing staff reviewed the chart.~Reviewed interim history and current functioning. Reviewed vital signs,~Labs/ Radiology~and current medications noted below. Continue current treatment with the changes noted in the dictated addendum note Assessment: Vital Signs/I&O: Vital Signs Date Time Temp Pulse Resp B/P (MAP) Pulse Ox O2 Delivery O2 Flow Rate FiO2 12/15/20 15:44 97.6 62 22 171/81 (111) 99 12/12/20 16:01 Room Air I & O 12/14/20 12/14/20 12/15/20 15:00 23:00 07:00 Intake Total 240 ml 300 ml Balance 240 ml 300 ml Labs: Laboratory Tests Test 12/15/20 07:22 Glucose (Fingerstick) 88 mg/dL (70-99) Current Medications: Meds: Laboratory Tests Test 12/15/20 07:22 Glucose (Fingerstick) 88 mg/dL Current Medications Medications (Trade) Dose Ordered Sig/Cathryn Route PRN Reason Start Time Stop Time Status Last Admin Dose Admin Albuterol Sulfate (Ventolin) 90 mg PRN QID PRN IH wheezing 12/11/20 22:00 UNV Alprazolam (Xanax) 0.5 mg PRN TID PRN PO ANXIETY / AGITATION 12/11/20 22:00 12/11/20 22:45 DC Benztropine Mesylate (Cogentin) 0.5 mg HS PO 12/12/20 21:00 12/11/20 22:45 DC Diphenhydramine HCl (Benadryl) 25 mg PRN Q4HRS PRN PO ANXIETY / AGITATION 12/11/20 22:00 Olanzapine (ZyPREXA ZYDIS) 2.5 mg PRN Q2HRS PRN PO ANXIETY / AGITATION 12/11/20 22:00 12/12/20 05:58 Trazodone HCl (Desyrel) 50 mg PRN QHS PRN PO INSOMNIA, MAY REPEAT X2 12/11/20 22:00 12/11/20 23:04 Fluticasone Propionate (Flonase) 2 spray PRN DAILY PRN NS ALLERGIES 12/11/20 22:30 12/12/20 13:31 Non-Formulary Medication (Ginkgo Biloba [place] Extract (Ginkgo Biloba)) 30 mg DAILY PO 12/12/20 09:00 UNV Pyridoxine HCl (Vitamin B-6) 50 mg DAILY PO 12/12/20 09:00 12/15/20 08:01 Vitamin E (Vitamin E) 200 unit DAILY PO 12/12/20 09:00 12/15/20 08:02 Albuterol Sulfate (Ventolin Hfa Inhaler) 2 puff PRN QID PRN INH SHORTNESS OF BREATH 12/11/20 22:30 12/12/20 13:31 Alprazolam (Xanax) 0.5 mg TID PO 12/11/20 22:45 12/15/20 20:35 Benztropine Mesylate (Cogentin) 0.5 mg HS PO 12/11/20 22:45 12/15/20 20:36 Acetaminophen (Tylenol) 650 mg PRN Q6HRS PRN PO MILD PAIN / TEMP > 100.3'F 12/11/20 23:15 Multi-Ingredient Ointment (Analgesic [place]) 1 dinora PRN QID PRN TP MUSCLE PAIN 12/11/20 23:15 Al Hydroxide/Mg Hydroxide (Mylanta Plus Xs) 15 ml PRN AFTMEALHC PRN PO DYSPEPSIA 12/11/20 23:15 Magnesium Hydroxide (Milk Of Magnesia) 2,400 mg PRN QHS PRN PO CONSTIPATION 12/11/20 23:15 Pantoprazole Sodium (Protonix) 40 mg DAILYAC PO 12/13/20 07:30 12/15/20 08:01 Olanzapine (ZyPREXA) 5 mg HS PO 12/14/20 21:00 12/15/20 20:36 Duloxetine HCl (Cymbalta) 30 mg DAILY PO 12/15/20 09:00 12/15/20 18:47 DC 12/15/20 08:01 Current Medications Medications (Trade) Dose Ordered Sig/Cathryn Route PRN Reason Start Time Stop Time Status Last Admin Dose Admin Duloxetine HCl (Cymbalta) 30 mg DAILY PO 12/15/20 09:00 12/15/20 18:47 DC 12/15/20 08:01 I have reviewed the current psychotropics carefully including drug interactions. Risk benefit ratio favors no change other than as noted in my dictated progress note. Diagnosis: Problems: (1) Anxiety disorder, unspecified (2) Major depressive disorder with psychotic features (3) Mild cognitive impairment (4) Bipolar disorder, current episode mixed, severe, with psychotic features ERON MEDARNO MD Dec 15, 2020 22:15
[2020-12-16 05:53] VITALS: BP 157/85
[2020-12-16] MEDS: PANTOPRAZOLE 40 MG TABLET. PO SCH (08:46)
[2020-12-16] MEDS: PYRIDOXINE 50 MG TABLET. PO SCH (08:46)
[2020-12-16] MEDS: ALPRAZolam 0.5 MG TABLET PO SCH ×3 (08:46→19:57)
[2020-12-16] MEDS: VITAMIN E 200 UNIT CAPSULE. PO SCH (08:46)
[2020-12-16 15:30] VITALS: BP 139/93
--- NOTE | 2020-12-16 18:10 | NUR ---
Patient has been anxious, disorganized, and withdrawn throughout this shift. Patient has very pronounced tremor in all limbs with occasional 'startle response' when her whole body jumps. She has been essentially nonverbal since breakfast when she asked what her medications were; patient refused to talk on the phone when her daughter called. Patient has had a poor appetite at meals. Will continue to monitor and report to oncoming shift.
[2020-12-16] MEDS: BENZTROPINE MESYLATE 0.5 MG TABLET PO SCH (19:57)
[2020-12-16] MEDS: OLANZapine 2.5 MG TABLET PO SCH (19:57)
--- NOTE | 2020-12-16 21:04 | NUR ---
Patient is withdrawn to room this shift. Patient was in bed, awake, when nurse entered the room with HS medications. Patient denies pain, stated that she is in bed because "it is comfortable". Patient has pronounced involuntary muscle movements. Patient was not very interactive and there were long pauses between nurses assessment questions and patients answers. Patient oriented to self, month, year and place. When asked about situation she stated "no one can understand" and then "I know your just trying to be helpful". Patient was cooperative with assessment and compliant with medications. It was reported by day nurse that patient did not eat dinner tonight, she spoke to sister on the phone during the afternoon.
--- NOTE | 2020-12-16 22:12 | PDOC ---
Exam Note: Carlos Note: Please also refer to the separate dictated note~for this date of service dictated separately.~Patient seen individually. Discussed the patient with Nursing staff reviewed the chart.~Reviewed interim history and current functioning. Reviewed vital signs,~Labs/ Radiology~and current medications noted below. Continue current treatment with the changes noted in the dictated addendum note Assessment: Vital Signs/I&O: Vital Signs Date Time Temp Pulse Resp B/P (MAP) Pulse Ox O2 Delivery O2 Flow Rate FiO2 12/16/20 15:30 97.8 69 22 139/93 (108) 96 12/12/20 16:01 Room Air I & O 12/15/20 12/15/20 12/16/20 15:00 23:00 07:00 Intake Total 480 ml 420 ml Balance 480 ml 420 ml Labs: Laboratory Tests Test 12/16/20 07:26 Glucose (Fingerstick) 90 mg/dL (70-99) Current Medications: Meds: Laboratory Tests Test 12/16/20 07:26 Glucose (Fingerstick) 90 mg/dL Current Medications Medications (Trade) Dose Ordered Sig/Cathryn Route PRN Reason Start Time Stop Time Status Last Admin Dose Admin Albuterol Sulfate (Ventolin) 90 mg PRN QID PRN IH wheezing 12/11/20 22:00 UNV Alprazolam (Xanax) 0.5 mg PRN TID PRN PO ANXIETY / AGITATION 12/11/20 22:00 12/11/20 22:45 DC Benztropine Mesylate (Cogentin) 0.5 mg HS PO 12/12/20 21:00 12/11/20 22:45 DC Diphenhydramine HCl (Benadryl) 25 mg PRN Q4HRS PRN PO ANXIETY / AGITATION 12/11/20 22:00 Olanzapine (ZyPREXA ZYDIS) 2.5 mg PRN Q2HRS PRN PO ANXIETY / AGITATION 12/11/20 22:00 12/12/20 05:58 Trazodone HCl (Desyrel) 50 mg PRN QHS PRN PO INSOMNIA, MAY REPEAT X2 12/11/20 22:00 12/11/20 23:04 Fluticasone Propionate (Flonase) 2 spray PRN DAILY PRN NS ALLERGIES 12/11/20 22:30 12/12/20 13:31 Non-Formulary Medication (Ginkgo Biloba [place] Extract (Ginkgo Biloba)) 30 mg DAILY PO 12/12/20 09:00 UNV Pyridoxine HCl (Vitamin B-6) 50 mg DAILY PO 12/12/20 09:00 12/16/20 08:46 Vitamin E (Vitamin E) 200 unit DAILY PO 12/12/20 09:00 12/16/20 08:46 Albuterol Sulfate (Ventolin Hfa Inhaler) 2 puff PRN QID PRN INH SHORTNESS OF BREATH 12/11/20 22:30 12/12/20 13:31 Alprazolam (Xanax) 0.5 mg TID PO 12/11/20 22:45 12/16/20 19:57 Benztropine Mesylate (Cogentin) 0.5 mg HS PO 12/11/20 22:45 12/16/20 19:57 Acetaminophen (Tylenol) 650 mg PRN Q6HRS PRN PO MILD PAIN / TEMP > 100.3'F 12/11/20 23:15 Multi-Ingredient Ointment (Analgesic [place]) 1 dinora PRN QID PRN TP MUSCLE PAIN 12/11/20 23:15 Al Hydroxide/Mg Hydroxide (Mylanta Plus Xs) 15 ml PRN AFTMEALHC PRN PO DYSPEPSIA 12/11/20 23:15 Magnesium Hydroxide (Milk Of Magnesia) 2,400 mg PRN QHS PRN PO CONSTIPATION 12/11/20 23:15 Pantoprazole Sodium (Protonix) 40 mg DAILYAC PO 12/13/20 07:30 12/16/20 08:46 Olanzapine (ZyPREXA) 5 mg HS PO 12/14/20 21:00 12/16/20 19:57 Duloxetine HCl (Cymbalta) 30 mg DAILY PO 12/15/20 09:00 12/15/20 18:47 DC 12/15/20 08:01 I have reviewed the current psychotropics carefully including drug interactions. Risk benefit ratio favors no change other than as noted in my dictated progress note. Diagnosis: Problems: (1) Anxiety disorder, unspecified (2) Major depressive disorder with psychotic features (3) Mild cognitive impairment (4) Bipolar disorder, current episode mixed, severe, with psychotic features ERON MEDRANO MD Dec 16, 2020 22:12
--- NOTE | 2020-12-17 05:31 | CONS ---
DATE OF CONSULTATION: 12/13/2020 NEUROLOGY CONSULTATION DATE OF CONSULTATION: 12/13/2020 REFERRING PHYSICIAN: Dr. Alcaraz. REASON FOR CONSULTATION: Involuntary movement. HISTORY OF PRESENT ILLNESS: This is a 70-year-old right-handed female who was admitted on 12/11/2020 on account of increased symptoms of severe depressions with lack of appetite and unable to sleep along with paranoid delusions and questionable suicidal ideation. The neuro consult was requested because the patient has had intermittent involuntary movement of the entire body and sometimes jerking movements. The patient has been suffering from severe anxiety as she had multiple losses in her family along with the who . The patient has been unable to live alone. The situation has deteriorated in the last 3 weeks. She was living in a farm close to [place] and currently she lives with her daughter and sister. The patient denies any headaches, visual disturbances, nausea, vomiting, chest pain, shortness of breath or palpitation. She denies any recent head injuries or fall. PAST MEDICAL HISTORY: Significant for depression, anxiety, delusions, intermittent suicidal ideation, asthma, hyperlipidemia, fibromyalgia, osteoarthritis, paroxysmal ventricular contractions. FAMILY HISTORY: Noncontributory. SOCIAL HISTORY: The patient lives with her sister and daughter. She denies smoking, alcohol drinking or illicit drug use. 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 REVIEW OF SYSTEMS: A 12-point review of system was performed as mentioned above in history of present illness, otherwise unremarkable. CURRENT MEDICATIONS: Olanzapine, pantoprazole, vitamin E, vitamin B6, Tylenol, benztropine, alprazolam, albuterol inhaler, trazodone, Flonase nasal spray and Benadryl. ALLERGIES: PEANUT AND SEROQUEL. PHYSICAL EXAMINATION: GENERAL: Well-developed, well-nourished female in no acute distress. She weighs 61.3 kilos. VITAL SIGNS: Blood pressure 139/79, respiratory rate 20, pulse is 98, temperature 97, oxygen saturation 97% on room air. HEENT: Normocephalic, atraumatic, otherwise unremarkable. NECK: Supple. Negative for carotid bruit, lymphadenopathy or thyromegaly. LUNGS: Clear to A and P. CARDIOVASCULAR: Regular rate and rhythm. Normal S1, S2. There is no S3, S4 or murmur. ABDOMEN: Soft. Bowel sounds positive. EXTREMITIES: Negative for cyanosis, clubbing or pedal edema. NEUROLOGIC: Mental status: The patient is alert and oriented x3. The speech is slow but fluent. The patient is very anxious and appear depressed, helpless and hopeless. She denies hallucination or delusion. Cranial nerves: Visual glover are full. The pupils are reactive to light and accommodation. The extraocular movements are intact. There is no nystagmus. There is no facial, motor, or sensory deficits. Hearing is intact bilaterally. The palate is elevated symmetrically. Sternocleidomastoid muscles are powerful bilaterally. The patient shrugs her shoulders symmetrically, protrudes her tongue in the midline without fasciculation or atrophy. Motor examination: No focal muscle bulk wasting. The tone is normal. The strength is 4/5 throughout. Intermittently, the patient had twisting and jerky movements of the entire body lasted, 1-2 seconds. During the twitching the patient did not have any mental status changes. Sensory examination revealed normal pinprick, light touch, vibratory and position senses. Deep tendon reflexes were asymmetric and hypoactive with absent Achilles responses. Gait: The stance is steady. The patient walks without assistance. LABORATORY DATA: CBC revealed white cells of 9800, hemoglobin 14.9, hematocrit 43.7, platelet count 403,000. Chemistry reveals sodium was 144, potassium 4.2, chloride 106, CO2 of 24, BUN 19, creatinine 0.9, glucose 102, calcium is 9.6. A1c is normal at 5.5. Liver enzymes are normal. Triglyceride is high at 168 with high cholesterol at 271 with high LDL at 179. Normal vitamin B12 and vitamin D and normal thyroid profile. Urinalysis is negative for urinary tract infections; however, she has small urinary leukocyte esterase. COVID PCR is negative. IMPRESSION: 1. Intermittent twitching and jerking likely due to underlying severe generalized anxiety disorder. 2. Major depression with intermittent psychotic features. 3. Multiple medical problems include hyperlipidemia, osteoarthritis, and gastroesophageal reflux disease. RECOMMENDATION: Continue with current management initiated by Dr. Alcaraz for anxiety disorders and major depression. Agree with Dex if the patient has some exposure to atypical ____ agents in the past. ERNESTINA/DENNIS/PATEL DR: Marifer TID: [id number]
[2020-12-17 05:45] VITALS: BP 119/61
--- NOTE | 2020-12-17 09:00 | PDOC ---
Exam Note: Carlos Note: This note is a late entry for 12/15/2020 covers elements not covered in my initial note. Subjective: The patient was seen individually in the evening of 12/15/2020 with Agustin RUTH, discussed and reviewed the chart. She slept for 7-1/2 hours previous night. The patient has been somewhat withdrawn, not very verbal at all. At times she is more forthcoming verbally. I returned the call from the patients daughter Sue Chapman, phone [phone] and got some relevant historical information. Daughter feels the patient has had intermittent manic episodes and there is history of bipolar disorder with bipolar 2 disorder in the daughter and possible bipolar disorder in mother and grandmother. The patient has talked about her mind feeling jumbled that the daughter felt patient responded poorly to antidepressants in the past and preferred to avoid this. This would make sense given questionable history of bipolar disorder and we will go ahead and stop the Cymbalta. She remains on Zyprexa 5 mg a day both to stabilize her mood and hopefully as an added effect to increase her appetite. Review of Systems: No CV, , pulmonary, eye, ENT system symptoms on review. Mental Status Exam: The patient is reasonably oriented to herself and situation. Speech not very verbal. She is anxious, restless, somewhat startled in her appearance. Abstraction fair. Computation impaired. Language function intact. Attention span short. Mood and affect somewhat withdrawn. No active suicidal or homicidal ideation though she appears suspicious, somewhat paranoid, distractible and has the questionable involuntary movements. We will defer the latter to Dr. Newberry, Neurology. Laboratory Data: Reviewed. Impression: Probable bipolar disorder mixed. Anxiety disorder unspecified. Rule out mild cognitive impairment. Plan: We had lengthy discussion about treatment options. We will stop the Cymbalta. Continue Zyprexa. Consider Depakote as a mood stabilizer. Maintain Xanax scheduled and Cogentin, Benadryl for possible extrapyramidal side effects which the daughter attributes to Seroquel even though it was at a lower dosage. Make further adjustments as clinically indicated. Assessment: Vital Signs/I&O: Vital Signs Date Time Temp Pulse Resp B/P (MAP) Pulse Ox O2 Delivery O2 Flow Rate FiO2 12/17/20 05:45 97.5 101 18 119/61 (80) 97 Room Air I & O 12/16/20 12/16/20 12/17/20 15:00 23:00 07:00 Intake Total 240 ml 180 ml Balance 240 ml 180 ml Labs: Laboratory Tests Test 12/17/20 07:07 Glucose (Fingerstick) 94 mg/dL (70-99) Current Medications: Meds: Laboratory Tests Test 12/17/20 07:07 Glucose (Fingerstick) 94 mg/dL Current Medications Medications (Trade) Dose Ordered Sig/Cathryn Route PRN Reason Start Time Stop Time Status Last Admin Dose Admin Albuterol Sulfate (Ventolin) 90 mg PRN QID PRN IH wheezing 12/11/20 22:00 UNV Alprazolam (Xanax) 0.5 mg PRN TID PRN PO ANXIETY / AGITATION 12/11/20 22:00 12/11/20 22:45 DC Benztropine Mesylate (Cogentin) 0.5 mg HS PO 12/12/20 21:00 12/11/20 22:45 DC Diphenhydramine HCl (Benadryl) 25 mg PRN Q4HRS PRN PO ANXIETY / AGITATION 12/11/20 22:00 Olanzapine (ZyPREXA ZYDIS) 2.5 mg PRN Q2HRS PRN PO ANXIETY / AGITATION 12/11/20 22:00 12/12/20 05:58 Trazodone HCl (Desyrel) 50 mg PRN QHS PRN PO INSOMNIA, MAY REPEAT X2 12/11/20 22:00 12/11/20 23:04 Fluticasone Propionate (Flonase) 2 spray PRN DAILY PRN NS ALLERGIES 12/11/20 22:30 12/12/20 13:31 Non-Formulary Medication (Ginkgo Biloba [place] Extract (Ginkgo Biloba)) 30 mg DAILY PO 12/12/20 09:00 UNV Pyridoxine HCl (Vitamin B-6) 50 mg DAILY PO 12/12/20 09:00 12/16/20 08:46 Vitamin E (Vitamin E) 200 unit DAILY PO 12/12/20 09:00 12/16/20 08:46 Albuterol Sulfate (Ventolin Hfa Inhaler) 2 puff PRN QID PRN INH SHORTNESS OF BREATH 12/11/20 22:30 12/12/20 13:31 Alprazolam (Xanax) 0.5 mg TID PO 12/11/20 22:45 12/16/20 19:57 Benztropine Mesylate (Cogentin) 0.5 mg HS PO 12/11/20 22:45 12/16/20 19:57 Acetaminophen (Tylenol) 650 mg PRN Q6HRS PRN PO MILD PAIN / TEMP > 100.3'F 12/11/20 23:15 Multi-Ingredient Ointment (Analgesic [place]) 1 dinora PRN QID PRN TP MUSCLE PAIN 12/11/20 23:15 Al Hydroxide/Mg Hydroxide (Mylanta Plus Xs) 15 ml PRN AFTMEALHC PRN PO DYSPEPSIA 12/11/20 23:15 Magnesium Hydroxide (Milk Of Magnesia) 2,400 mg PRN QHS PRN PO CONSTIPATION 12/11/20 23:15 Pantoprazole Sodium (Protonix) 40 mg DAILYAC PO 12/13/20 07:30 12/16/20 08:46 Olanzapine (ZyPREXA) 5 mg HS PO 12/14/20 21:00 12/16/20 19:57 Duloxetine HCl (Cymbalta) 30 mg DAILY PO 12/15/20 09:00 12/15/20 18:47 DC 12/15/20 08:01 I have reviewed the current psychotropics carefully including drug interactions. Risk benefit ratio favors no change other than as noted in my dictated progress note. Diagnosis: Problems: (1) Anxiety disorder, unspecified (2) Major depressive disorder with psychotic features (3) Mild cognitive impairment (4) Bipolar disorder, current episode mixed, severe, with psychotic features ERON MEDRANO MD Dec 17, 2020 09:00
[2020-12-17] MEDS: ALPRAZolam 0.5 MG TABLET PO SCH ×3 (09:23→19:32)
[2020-12-17] MEDS: VITAMIN E 200 UNIT CAPSULE. PO SCH (09:23)
[2020-12-17] MEDS: PYRIDOXINE 50 MG TABLET. PO SCH (09:23)
[2020-12-17] MEDS: PANTOPRAZOLE 40 MG TABLET. PO SCH (09:23)
--- NOTE | 2020-12-17 09:26 | PDOC ---
Exam Note: Carlos Note: This note is a late entry for 12/16/2020 covers elements not covered in my initial note. Subjective: The patient was seen individually in the evening of 12/16/2020 with Gavino RUTH, discussed and reviewed the chart. She slept for 7 hours previous night. The patient has been anxious, withdrawn. Oral intake is poor. She has not been verbally interactive very much. She had a telephone call from the daughter but hung up on the daughter. We will check her weight 3 times if we given her poor appetite. Review of Systems: Positive for tremors. No CV, , pulmonary, eye, ENT system symptoms on review. Mental Status Exam: The patient is oriented to herself and situation. Speech is somewhat hesitant. She is obsessive, ruminative, distractive, paranoid. Abstraction fair. Computation impaired. Language function intact. Attention span short. Mood and affect somewhat withdrawn. No active suicidal or homicidal ideation. Laboratory Data: Reviewed. Impression: Major depressive disorder with psychotic features. Anxiety disorder unspecified. Rule out bipolar disorder depressed with psychotic features. Mild cognitive impairment. Plan: Continue current psychotropics. Consider Depakote as a mood stabilizer. Assessment: Vital Signs/I&O: Vital Signs Date Time Temp Pulse Resp B/P (MAP) Pulse Ox O2 Delivery O2 Flow Rate FiO2 12/17/20 05:45 97.5 101 18 119/61 (80) 97 Room Air I & O 12/16/20 12/16/20 12/17/20 14:59 22:59 06:59 Intake Total 240 ml 180 ml Balance 240 ml 180 ml Labs: Laboratory Tests Test 12/17/20 07:07 Glucose (Fingerstick) 94 mg/dL (70-99) Current Medications: Meds: Laboratory Tests Test 12/17/20 07:07 Glucose (Fingerstick) 94 mg/dL Current Medications Medications (Trade) Dose Ordered Sig/Cathryn Route PRN Reason Start Time Stop Time Status Last Admin Dose Admin Albuterol Sulfate (Ventolin) 90 mg PRN QID PRN IH wheezing 12/11/20 22:00 UNV Alprazolam (Xanax) 0.5 mg PRN TID PRN PO ANXIETY / AGITATION 12/11/20 22:00 12/11/20 22:45 DC Benztropine Mesylate (Cogentin) 0.5 mg HS PO 12/12/20 21:00 12/11/20 22:45 DC Diphenhydramine HCl (Benadryl) 25 mg PRN Q4HRS PRN PO ANXIETY / AGITATION 12/11/20 22:00 Olanzapine (ZyPREXA ZYDIS) 2.5 mg PRN Q2HRS PRN PO ANXIETY / AGITATION 12/11/20 22:00 12/12/20 05:58 Trazodone HCl (Desyrel) 50 mg PRN QHS PRN PO INSOMNIA, MAY REPEAT X2 12/11/20 22:00 12/11/20 23:04 Fluticasone Propionate (Flonase) 2 spray PRN DAILY PRN NS ALLERGIES 12/11/20 22:30 12/12/20 13:31 Non-Formulary Medication (Ginkgo Biloba [employer] Extract (Ginkgo Biloba)) 30 mg DAILY PO 12/12/20 09:00 UNV Pyridoxine HCl (Vitamin B-6) 50 mg DAILY PO 12/12/20 09:00 12/17/20 09:23 Vitamin E (Vitamin E) 200 unit DAILY PO 12/12/20 09:00 12/17/20 09:23 Albuterol Sulfate (Ventolin Hfa Inhaler) 2 puff PRN QID PRN INH SHORTNESS OF BREATH 12/11/20 22:30 12/12/20 13:31 Alprazolam (Xanax) 0.5 mg TID PO 12/11/20 22:45 12/17/20 09:23 Benztropine Mesylate (Cogentin) 0.5 mg HS PO 12/11/20 22:45 12/16/20 19:57 Acetaminophen (Tylenol) 650 mg PRN Q6HRS PRN PO MILD PAIN / TEMP > 100.3'F 12/11/20 23:15 Multi-Ingredient Ointment (Analgesic [place]) 1 dinora PRN QID PRN TP MUSCLE PAIN 12/11/20 23:15 Al Hydroxide/Mg Hydroxide (Mylanta Plus Xs) 15 ml PRN AFTMEALHC PRN PO DYSPEPSIA 12/11/20 23:15 Magnesium Hydroxide (Milk Of Magnesia) 2,400 mg PRN QHS PRN PO CONSTIPATION 12/11/20 23:15 Pantoprazole Sodium (Protonix) 40 mg DAILYAC PO 12/13/20 07:30 12/17/20 09:23 Olanzapine (ZyPREXA) 5 mg HS PO 12/14/20 21:00 12/16/20 19:57 Duloxetine HCl (Cymbalta) 30 mg DAILY PO 12/15/20 09:00 12/15/20 18:47 DC 12/15/20 08:01 I have reviewed the current psychotropics carefully including drug interactions. Risk benefit ratio favors no change other than as noted in my dictated progress note. Diagnosis: Problems: (1) Anxiety disorder, unspecified (2) Major depressive disorder with psychotic features (3) Mild cognitive impairment (4) Bipolar disorder, current episode mixed, severe, with psychotic features ERON MEDRANO MD Dec 17, 2020 09:26
[2020-12-17 15:41] VITALS: BP 156/78
--- NOTE | 2020-12-17 16:57 | TX PLAN ---
Interdisciplinary Tx Plan Admission Information Dec 11, 2020 at 20:18 Legal Status (on Admission): Voluntary DPOA/Guardian Name: Sue Chapman Contact Verified Code Status: Full Code Allergies: Coded Allergies: peanut (Verified Allergy, Unknown, 12/12/20) quetiapine (Verified Adverse Reaction, Severe, 12/11/20) EPS symptoms Diagnoses Primary Diagnosis: MDD Reasons for Admission: Delusions, Agitated, Sig. Change Sleep, Confusion/Disoriented Problem in Patient's Words: Concerns of pt being Bipolar and not on the right medication. Additional Admission Comments: According to the intake, pt has insomnia and agitation, psychotic expressions of self harm,delusional (thinks people are trying to kill her), depressed, poor intake of meals Problems Active Problems: withdrawn poor sleep pattern hopeless Inactive Problems: medication management Pt Strengths/Limitations Ability for [place]: Fair Cognitive Functioning/Ability: Fair Communication Skills/Ability: Fair Financial Resources: Fair Insight/Judgement: Poor Intellectual Ability: Fair Physical Health: Fair Social Skills: Fair Stability in Family: Good Stability in School/Work: Poor Verbal Skills: Fair Discharge Criteria Discharge Criteria: Able meet basic life need, No need for close observ., Adequate arrangements @DC, Adequate self-care, Improved behavior, Improved mood/thought Preliminary Discharge Plan Preliminary DC Plan: Current Living Arrange. Special Precautions Fall Risk: Low Initial D/C Plan Plan to return home with community services Identified Discharge Needs: Mental health services Currently Utilized Resources Currently Utilized Resources/P: Primary Care Physician Referrals Community Resources: Psychiatry Case Management Counseling Identified Problems/Hx/Goals Objectives/Short-Term Goals Short Term Goals: Dec. Hallucination/Delus, Medication Stabilization, Monitor Med Effects Short Term Goals in Patient's: N/A Interventions/Frequency Staff Interventions/Frequency&: Psychiatrist to assess pt at least 3x per week for medication management. Social Work to assess pt at least 2x per week to identify barriers to care and finalize discharge planning. Nursing to assess medication effects, behavior modification and completion of 15 minute checks. Encourage participation in group activities (if applicable) or 1:1 engagement based of activity dept goals. 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
--- NOTE | 2020-12-17 18:31 | NUR ---
Patient has been anxious, disorganized, and withdrawn throughout this shift. Patient has very pronounced tremor in all limbs and torso. She was nonverbal in the morning until she talked on the phone when her daughter called. Patient has had a poor appetite at meals, but states she feels fine. Will continue to monitor and report to oncoming shift.
[2020-12-17] MEDS: OLANZapine 2.5 MG TABLET PO SCH (19:31)
[2020-12-17] MEDS: BENZTROPINE MESYLATE 0.5 MG TABLET PO SCH (19:31)
--- NOTE | 2020-12-17 21:04 | NUR ---
Patient was in bed when this nurse came on shift. She continues to have involuntary muscle movements. Patient compliant with medications, she takes them whole.
[2020-12-18 06:08] VITALS: BP 139/72
--- NOTE | 2020-12-18 06:43 | PDOC ---
Exam Note: Carlos Note: Late entry for 12/17/2020. Please also refer to the separate dictated note~for this date of service dictated separately.~Patient seen individually. Discussed the patient with Nursing staff reviewed the chart.~Reviewed interim history and current functioning. Reviewed vital signs,~Labs/ Radiology~and current medic ations noted below. Continue current treatment with the changes noted in the dictated addendum note Assessment: Vital Signs/I&O: Vital Signs Date Time Temp Pulse Resp B/P (MAP) Pulse Ox O2 Delivery O2 Flow Rate FiO2 12/18/20 06:08 97.3 74 20 139/72 (94) 97 Room Air I & O 12/17/20 12/17/20 12/18/20 15:00 23:00 07:00 Intake Total 60 ml 360 ml Balance 60 ml 360 ml Labs: Laboratory Tests Test 12/17/20 07:07 Glucose (Fingerstick) 94 mg/dL (70-99) Current Medications: Meds: Laboratory Tests Test 12/17/20 07:07 Glucose (Fingerstick) 94 mg/dL Current Medications Medications (Trade) Dose Ordered Sig/Cathryn Route PRN Reason Start Time Stop Time Status Last Admin Dose Admin Albuterol Sulfate (Ventolin) 90 mg PRN QID PRN IH wheezing 12/11/20 22:00 UNV Alprazolam (Xanax) 0.5 mg PRN TID PRN PO ANXIETY / AGITATION 12/11/20 22:00 12/11/20 22:45 DC Benztropine Mesylate (Cogentin) 0.5 mg HS PO 12/12/20 21:00 12/11/20 22:45 DC Diphenhydramine HCl (Benadryl) 25 mg PRN Q4HRS PRN PO ANXIETY / AGITATION 12/11/20 22:00 Olanzapine (ZyPREXA ZYDIS) 2.5 mg PRN Q2HRS PRN PO ANXIETY / AGITATION 12/11/20 22:00 12/12/20 05:58 Trazodone HCl (Desyrel) 50 mg PRN QHS PRN PO INSOMNIA, MAY REPEAT X2 12/11/20 22:00 12/11/20 23:04 Fluticasone Propionate (Flonase) 2 spray PRN DAILY PRN NS ALLERGIES 12/11/20 22:30 12/12/20 13:31 Non-Formulary Medication (Ginkgo Biloba [place] Extract (Ginkgo Biloba)) 30 mg DAILY PO 12/12/20 09:00 UNV Pyridoxine HCl (Vitamin B-6) 50 mg DAILY PO 12/12/20 09:00 12/17/20 09:23 Vitamin E (Vitamin E) 200 unit DAILY PO 12/12/20 09:00 12/17/20 09:23 Albuterol Sulfate (Ventolin Hfa Inhaler) 2 puff PRN QID PRN INH SHORTNESS OF BREATH 12/11/20 22:30 12/12/20 13:31 Alprazolam (Xanax) 0.5 mg TID PO 12/11/20 22:45 12/17/20 19:32 Benztropine Mesylate (Cogentin) 0.5 mg HS PO 12/11/20 22:45 12/17/20 19:31 Acetaminophen (Tylenol) 650 mg PRN Q6HRS PRN PO MILD PAIN / TEMP > 100.3'F 12/11/20 23:15 Multi-Ingredient Ointment (Analgesic [place]) 1 dinora PRN QID PRN TP MUSCLE PAIN 12/11/20 23:15 Al Hydroxide/Mg Hydroxide (Mylanta Plus Xs) 15 ml PRN AFTMEALHC PRN PO DYSPEPSIA 12/11/20 23:15 Magnesium Hydroxide (Milk Of Magnesia) 2,400 mg PRN QHS PRN PO CONSTIPATION 12/11/20 23:15 Pantoprazole Sodium (Protonix) 40 mg DAILYAC PO 12/13/20 07:30 12/17/20 09:23 Olanzapine (ZyPREXA) 5 mg HS PO 12/14/20 21:00 12/17/20 19:31 Duloxetine HCl (Cymbalta) 30 mg DAILY PO 12/15/20 09:00 12/15/20 18:47 DC 12/15/20 08:01 I have reviewed the current psychotropics carefully including drug interactions. Risk benefit ratio favors no change other than as noted in my dictated progress note. Diagnosis: Problems: (1) Anxiety disorder, unspecified (2) Major depressive disorder with psychotic features (3) Mild cognitive impairment (4) Bipolar disorder, current episode mixed, severe, with psychotic features ERON MEDRANO MD Dec 18, 2020 06:42
[2020-12-18] MEDS: ALPRAZolam 0.5 MG TABLET PO SCH ×3 (08:52→21:23)
[2020-12-18] MEDS: PANTOPRAZOLE 40 MG TABLET. PO SCH (08:52)
[2020-12-18] MEDS: VITAMIN E 200 UNIT CAPSULE. PO SCH (08:53)
[2020-12-18] MEDS: PYRIDOXINE 50 MG TABLET. PO SCH (08:53)
--- NOTE | 2020-12-18 10:21 | NUR ---
Treatment team update: Pt dtr Sue participated in treatment team via telephone. Pt is eating roughly 25% of meals mostly due to refusal to come out of her room; pt is getting weighed 3 days a week to monitor potential weightloss. Pt dtr has noted that adding cottage cheese and fruit as they have been getting her to eat it at home. Pt is sleeping roughly 7.5 hours at night. Pt is noted to have some jerking movements which appear to be "dramatic"; however, when she does not know staff are observing her, the movements are less. Pt is slow to answer questions during her assessment; however, pt is compliant with all medications. Pt saw Dr. Newberry and his note indicates that the twitching may be more due to anxiety; nothing neurological is noted. Pt dtr is questioning if the Xanax is causing tremors, which was noted to be not likely. Pt has participated in a few groups with minimal participation; activities noted that pt reports being anxious, paranoid and her recent losses. Pt dtr and the psychiatrist in previous discussions mentioned pt having a Bipolar D/O. Pt is currently on Zyprexa 5mg at HS and will start Depakote ER 250mg q HS with labs and levels in 3 days. Pt will plan to discharge home with community services; ELOS 10-14 days.
--- NOTE | 2020-12-18 10:42 | TX PLAN ---
Interdisciplinary Tx Plan Admission Information Dec 11, 2020 at 20:18 Legal Status (on Admission): Voluntary DPOA/Guardian Name: Sue Chapman Contact Verified Code Status: Full Code Allergies: Coded Allergies: peanut (Verified Allergy, Unknown, 12/12/20) quetiapine (Verified Adverse Reaction, Severe, 12/11/20) EPS symptoms Diagnoses Primary Diagnosis: MDD Reasons for Admission: Delusions, Agitated, Sig. Change Sleep, Confusion/Disoriented Problem in Patient's Words: Concerns of pt being Bipolar and not on the right medication. Additional Admission Comments: According to the intake, pt has insomnia and agitation, psychotic expressions of self harm,delusional (thinks people are trying to kill her), depressed, poor intake of meals Problems Active Problems: withdrawn poor sleep pattern hopeless Inactive Problems: medication management Pt Strengths/Limitations Ability for [place]: Fair Cognitive Functioning/Ability: Fair Communication Skills/Ability: Fair Financial Resources: Fair Insight/Judgement: Poor Intellectual Ability: Fair Physical Health: Fair Social Skills: Fair Stability in Family: Good Stability in School/Work: Poor Verbal Skills: Fair Discharge Criteria Discharge Criteria: Able meet basic life need, No need for close observ., Adequate arrangements @DC, Adequate self-care, Improved behavior, Improved mood/thought Preliminary Discharge Plan Preliminary DC Plan: Current Living Arrange. Special Precautions Fall Risk: Low Initial D/C Plan Plan to return home with community services Identified Discharge Needs: Mental health services Currently Utilized Resources Currently Utilized Resources/P: Primary Care Physician Referrals Community Resources: Psychiatry Case Management Counseling Identified Problems/Hx/Goals Objectives/Short-Term Goals Short Term Goals: Dec. Hallucination/Delus, Medication Stabilization, Monitor Med Effects Short Term Goals in Patient's: N/A Interventions/Frequency Staff Interventions/Frequency&: Psychiatrist to assess pt at least 3x per week for medication management. Social Work to assess pt at least 2x per week to identify barriers to care and finalize discharge planning. Nursing to assess medication effects, behavior modification and completion of 15 minute checks. Encourage participation in group activities (if applicable) or 1:1 engagement based of activity dept goals. 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 Pt is eating roughly 25% of meals mostly due to refusal to come out of her room; pt is getting weighed 3 days a week to monitor potential weightloss. Pt dtr has noted that adding cottage cheese and fruit as they have been getting her to eat it at home. Pt is sleeping roughly 7.5 hours at night. Pt is noted to have some jerking movements which appear to be "dramatic"; however, when she does not know staff are observing her, the movements are less. Pt is slow to answer questions during her assessment; however, pt is compliant with all medications. Pt saw Dr. Newberry and his note indicates that the twitching may be more due to anxiety; nothing neurological is noted. Pt dtr is questioning if the Xanax is causing tremors, which was noted to be not likely. Pt has participated in a few groups with minimal participation; activities noted that pt reports being anxious, paranoid and her recent losses. Pt dtr and the psychiatrist in previous discussions mentioned pt having a Bipolar D/O. Pt is currently on Zyprexa 5mg at HS and will start Depakote ER 250mg q HS with labs and levels in 3 days. Pt will plan to discharge home with community services; ELOS 10-14 days. JIM MIGUEL Dec 18, 2020 10:41
--- NOTE | 2020-12-18 12:43 | NUR ---
WEEKLY ACTIVITY THERAPY NOTE Date of Admission: 12/11/20 Date of AT Assessment: 12/12 Precipitating behaviors that initiated intake and admission:Pt having manic episodes, paranoid, delusional, has had multiple losses over the last few years of family members. Has had decreased appetite, and not sleeping. Daughter states this began 3 weeks ago and that she and her aunt moved in with the patient. Goal aimed: increase stress management and relaxation skills Initial Goal: Pt will participate in at least five group Activity Therapy sessions per week Weekly progress towards goal: goal evaluation begins next week Group participation level: 2 min Weekly highlights: exercising Tuesday morning and accepted punch Tuesday afternoon Behaviors observed: withdrawn to room, pleasant and calm Plan: goal evaluation begins next week Beneficial adaptations: exercise
[2020-12-18 15:37] VITALS: BP 148/69
--- NOTE | 2020-12-18 15:57 | NUR ---
NSG NOTE; Maureen has been withdrawn to her room but came to the dining room for lunch. she refused breakfast, stating that she wasn't hungry. she has been mildly anxious and compliant with assessment and meds. she answered questions briefly but does not elaborate. this am, while I was in her room with her, her tremors and jerking movements were greatly pronounced. Later, I was able to observe her from the hallway during which she was unaware. at that time, no tremors or jerking movements were noted. then I went in to her room, after which she became more anxious and started the tremors and jerking which got worse the longer I was in the room.
[2020-12-18] MEDS ORDERED: DIVALPROEX 125 MG CAP.SPRINK PO SCH (21:00)
[2020-12-18] MEDS: OLANZapine 2.5 MG TABLET PO SCH (21:23)
[2020-12-18] MEDS: DIVALPROEX ER 250 MG TAB.ER.24H. PO SCH (21:23)
[2020-12-18] MEDS: BENZTROPINE MESYLATE 0.5 MG TABLET PO SCH (21:23)
--- NOTE | 2020-12-18 22:03 | PDOC ---
Exam Note: Carlos Note: Please also refer to the separate dictated note~for this date of service dictated separately.~Patient seen individually. Discussed the patient with Nursing staff reviewed the chart.~Reviewed interim history and current functioning. Reviewed vital signs,~Labs/ Radiology~and current medications noted below. Continue current treatment with the changes noted in the dictated addendum note Assessment: Vital Signs/I&O: Vital Signs Date Time Temp Pulse Resp B/P (MAP) Pulse Ox O2 Delivery O2 Flow Rate FiO2 12/18/20 15:37 97.0 70 16 148/69 (95) 95 12/18/20 06:08 Room Air I & O 12/17/20 12/17/20 12/18/20 14:59 22:59 06:59 Intake Total 60 ml 360 ml Balance 60 ml 360 ml Current Medications: Meds: Current Medications Medications (Trade) Dose Ordered Sig/Cathryn Route PRN Reason Start Time Stop Time Status Last Admin Dose Admin Albuterol Sulfate (Ventolin) 90 mg PRN QID PRN IH wheezing 12/11/20 22:00 UNV Alprazolam (Xanax) 0.5 mg PRN TID PRN PO ANXIETY / AGITATION 12/11/20 22:00 12/11/20 22:45 DC Benztropine Mesylate (Cogentin) 0.5 mg HS PO 12/12/20 21:00 12/11/20 22:45 DC Diphenhydramine HCl (Benadryl) 25 mg PRN Q4HRS PRN PO ANXIETY / AGITATION 12/11/20 22:00 Olanzapine (ZyPREXA ZYDIS) 2.5 mg PRN Q2HRS PRN PO ANXIETY / AGITATION 12/11/20 22:00 12/12/20 05:58 Trazodone HCl (Desyrel) 50 mg PRN QHS PRN PO INSOMNIA, MAY REPEAT X2 12/11/20 22:00 12/11/20 23:04 Fluticasone Propionate (Flonase) 2 spray PRN DAILY PRN NS ALLERGIES 12/11/20 22:30 12/12/20 13:31 Non-Formulary Medication (Ginkgo Biloba [place] Extract (Ginkgo Biloba)) 30 mg DAILY PO 12/12/20 09:00 UNV Pyridoxine HCl (Vitamin B-6) 50 mg DAILY PO 12/12/20 09:00 12/18/20 08:53 Vitamin E (Vitamin E) 200 unit DAILY PO 12/12/20 09:00 12/18/20 08:53 Albuterol Sulfate (Ventolin Hfa Inhaler) 2 puff PRN QID PRN INH SHORTNESS OF BREATH 12/11/20 22:30 12/12/20 13:31 Alprazolam (Xanax) 0.5 mg TID PO 12/11/20 22:45 12/18/20 21:23 Benztropine Mesylate (Cogentin) 0.5 mg HS PO 12/11/20 22:45 12/18/20 21:23 Acetaminophen (Tylenol) 650 mg PRN Q6HRS PRN PO MILD PAIN / TEMP > 100.3'F 12/11/20 23:15 Multi-Ingredient Ointment (Analgesic [place]) 1 dinora PRN QID PRN TP MUSCLE PAIN 12/11/20 23:15 Al Hydroxide/Mg Hydroxide (Mylanta Plus Xs) 15 ml PRN AFTMEALHC PRN PO DYSPEPSIA 12/11/20 23:15 Magnesium Hydroxide (Milk Of Magnesia) 2,400 mg PRN QHS PRN PO CONSTIPATION 12/11/20 23:15 Pantoprazole Sodium (Protonix) 40 mg DAILYAC PO 12/13/20 07:30 12/18/20 08:52 Olanzapine (ZyPREXA) 5 mg HS PO 12/14/20 21:00 12/18/20 21:23 Duloxetine HCl (Cymbalta) 30 mg DAILY PO 12/15/20 09:00 12/15/20 18:47 DC 12/15/20 08:01 Divalproex Sodium (Depakote Sprinkles) 250 mg HS PO 12/18/20 21:00 12/18/20 11:37 DC Divalproex Sodium (Depakote Er) 250 mg QHS PO 12/18/20 21:00 12/18/20 21:23 Current Medications Medications (Trade) Dose Ordered Sig/Cathryn Route PRN Reason Start Time Stop Time Status Last Admin Dose Admin Divalproex Sodium (Depakote Er) 250 mg QHS PO 12/18/20 21:00 12/18/20 21:23 I have reviewed the current psychotropics carefully including drug interactions. Risk benefit ratio favors no change other than as noted in my dictated progress note. Diagnosis: Problems: (1) Anxiety disorder, unspecified (2) Major depressive disorder with psychotic features (3) Mild cognitive impairment (4) Bipolar disorder, current episode mixed, severe, with psychotic features ERON MEDRANO MD Dec 18, 2020 22:03
--- NOTE | 2020-12-19 00:31 | NUR ---
Patient was already in bed when this nurse came on shift. She was observed to be awake, laying in bed staring at the ceiling. Patient cooperative and compliant. At this time she did not appear to be having the tremors that she had been having previously. Patient was started on Depakote XR tonight, she has labs scheduled for 12/21. No adverse reactions were noted. Patient has flat affect and appears sad. She denies pain when asked. Patient is not interactive and seem to provide answers with the minimum amount of information. Will continue to monitor.
[2020-12-19 06:12] VITALS: BP 146/79
--- NOTE | 2020-12-19 06:21 | PDOC ---
Exam Note: Carlos Note: This note is a late entry for 12/17/2020 covers elements not covered in my initial note. Subjective: The patient was seen individually in the evening of 12/17/2020 with Gavino RUTH, discussed and reviewed the chart. She slept for 7-3/4 hours previous night. Previous evening the patient was quite agitated with the nursing staff. Oral intake is poor. She had a telephone call with her daughter, unclear how this went. Reportedly the daughter indicated that p.r.n. Benadryl was of no help. She has been seen by Dr. Newberry, Neurology. We will wait for his recommendations for the patients tremors. I met with her in her room. She is easily startled, quite over-reactive, anxious, somewhat obsessive regarding discharge. I addressed with her at some length. Review of Systems: Positive for tremors. No CV, , pulmonary, eye, ENT system symptoms on review. Mental Status Exam: The patient is oriented to herself and situation. Speech is somewhat hesitant. Abstraction fair. Computation impaired. Language function intact. Attention span short. Mood and affect somewhat withdrawn. No active suicidal or homicidal ideation. Laboratory Data: Reviewed. Impression: Major depressive disorder with psychotic features. Anxiety disorder unspecified. Rule out bipolar disorder depressed with psychotic features. Mild cognitive impairment. Plan: Continue current psychotropics. Assessment: Vital Signs/I&O: Vital Signs Date Time Temp Pulse Resp B/P (MAP) Pulse Ox O2 Delivery O2 Flow Rate FiO2 12/19/20 06:12 97.2 77 20 146/79 (101) 97 Room Air I & O 12/18/20 12/18/20 12/19/20 15:00 23:00 07:00 Intake Total 360 ml 120 ml Balance 360 ml 120 ml Current Medications: Meds: Current Medications Medications (Trade) Dose Ordered Sig/Cathryn Route PRN Reason Start Time Stop Time Status Last Admin Dose Admin Albuterol Sulfate (Ventolin) 90 mg PRN QID PRN IH wheezing 12/11/20 22:00 UNV Alprazolam (Xanax) 0.5 mg PRN TID PRN PO ANXIETY / AGITATION 12/11/20 22:00 12/11/20 22:45 DC Benztropine Mesylate (Cogentin) 0.5 mg HS PO 12/12/20 21:00 12/11/20 22:45 DC Diphenhydramine HCl (Benadryl) 25 mg PRN Q4HRS PRN PO ANXIETY / AGITATION 12/11/20 22:00 Olanzapine (ZyPREXA ZYDIS) 2.5 mg PRN Q2HRS PRN PO ANXIETY / AGITATION 12/11/20 22:00 12/12/20 05:58 Trazodone HCl (Desyrel) 50 mg PRN QHS PRN PO INSOMNIA, MAY REPEAT X2 12/11/20 22:00 12/11/20 23:04 Fluticasone Propionate (Flonase) 2 spray PRN DAILY PRN NS ALLERGIES 12/11/20 22:30 12/12/20 13:31 Non-Formulary Medication (Ginkgo Biloba [place] Extract (Ginkgo Biloba)) 30 mg DAILY PO 12/12/20 09:00 UNV Pyridoxine HCl (Vitamin B-6) 50 mg DAILY PO 12/12/20 09:00 12/18/20 08:53 Vitamin E (Vitamin E) 200 unit DAILY PO 12/12/20 09:00 12/18/20 08:53 Albuterol Sulfate (Ventolin Hfa Inhaler) 2 puff PRN QID PRN INH SHORTNESS OF BREATH 12/11/20 22:30 12/12/20 13:31 Alprazolam (Xanax) 0.5 mg TID PO 12/11/20 22:45 12/18/20 21:23 Benztropine Mesylate (Cogentin) 0.5 mg HS PO 12/11/20 22:45 12/18/20 21:23 Acetaminophen (Tylenol) 650 mg PRN Q6HRS PRN PO MILD PAIN / TEMP > 100.3'F 12/11/20 23:15 Multi-Ingredient Ointment (Analgesic [place]) 1 dinora PRN QID PRN TP MUSCLE PAIN 12/11/20 23:15 Al Hydroxide/Mg Hydroxide (Mylanta Plus Xs) 15 ml PRN AFTMEALHC PRN PO DYSPEPSIA 12/11/20 23:15 Magnesium Hydroxide (Milk Of Magnesia) 2,400 mg PRN QHS PRN PO CONSTIPATION 12/11/20 23:15 Pantoprazole Sodium (Protonix) 40 mg DAILYAC PO 12/13/20 07:30 12/18/20 08:52 Olanzapine (ZyPREXA) 5 mg HS PO 12/14/20 21:00 12/18/20 21:23 Duloxetine HCl (Cymbalta) 30 mg DAILY PO 12/15/20 09:00 12/15/20 18:47 DC 12/15/20 08:01 Divalproex Sodium (Depakote Sprinkles) 250 mg HS PO 12/18/20 21:00 12/18/20 11:37 DC Divalproex Sodium (Depakote Er) 250 mg QHS PO 12/18/20 21:00 12/18/20 21:23 Current Medications Medications (Trade) Dose Ordered Sig/Cathryn Route PRN Reason Start Time Stop Time Status Last Admin Dose Admin Divalproex Sodium (Depakote Er) 250 mg QHS PO 12/18/20 21:00 12/18/20 21:23 I have reviewed the current psychotropics carefully including drug interactions. Risk benefit ratio favors no change other than as noted in my dictated progress note. Diagnosis: Problems: (1) Anxiety disorder, unspecified (2) Major depressive disorder with psychotic features (3) Mild cognitive impairment (4) Bipolar disorder, current episode mixed, severe, with psychotic features ERON MEDRANO MD Dec 19, 2020 06:21
[2020-12-19 06:42] LABS: BASO % 1 % (0-3); EOS # 0.1 x10^3/uL (0.0-0.7); EOS % 2 % (0-3); HEMATOCRIT 40.3 % (36.0-47.0); HEMOGLOBIN 13.7 g/dL (12.0-15.5); LYMPH # 2.8 x10^3/uL (1.0-4.8); LYMPH % 46 % (24-48); MEAN CORPUSCULAR HEMOGLOBIN 31 pg (25-35); MEAN CORPUSCULAR HGB CONC 34 g/dL (31-37); MEAN CORPUSCULAR VOLUME 92 fL (79-100); MONO # 0.4 x10^3/uL (0.0-1.1); MONO % 6 % (0-9); NEUT # 2.8 x10^3uL (1.8-7.7); NEUT % 46 % (31-73); PLATELET COUNT 328 x10^3/uL (140-400); RED BLOOD COUNT 4.41 x10^6/uL (3.50-5.40); RED CELL DISTRIBUTION WIDTH 13.3 % (11.5-14.5); WHITE BLOOD COUNT 6.1 x10^3/uL (4.0-11.0)
--- NOTE | 2020-12-19 06:48 | PDOC ---
Exam Note: Carlos Note: This note is a late entry for 12/18/2020overs elements not covered in my initial note. Subjective: The patient was seen individually in the morning of 12/18/2020 for a treatment team meeting with Carolann Patrick, Lola Polanco (social media content specialist), Rayne, activity therapy and Mary Kay RUTH, discussed and reviewed the chart. She slept for 8-1/2 hours previous night. The patients daughter Sue attended the conference. We had a lengthy discussion about the patients history, diagnoses. According to the daughter, the patient has had multiple manic episodes and that has been the cardinal presentation of bipolar disorder rather than depressive episodes. Currently appetite is poor. She continues to have some involuntary jerky movements. She was seen by Dr. Newberry. Dr. Newberry from neurological standpoint feels the patients movement disorder and tremors are consequent to anxiety rather than neurological condition. She remains withdrawn to her room which is where I met with her. As before she is easily startled. We will check a weight 3 times a week since appetite is poor. She has attended some [employer] groups and talked about recent losses. Review of Systems: She does complain of being anxious. No CV, , pulmonary, eye, ENT system symptoms on review. Mental Status Exam: The patient is reasonably oriented. Speech is somewhat more forthcoming. Abstraction fair. Computation impaired. Language function intact. Mood and affect withdrawn, quite anxious. Tremors appeared less as I examined her this evening. Laboratory Data: Reviewed. Impression: Bipolar disorder mixed episode with possible psychotic features. Anxiety disorder unspecified. Impulse control disorder unspecified. Plan: Given her bipolar manic episodes, we will start Depakote ER 250 mg h.s. Check CBC, CMP, valproic acid level in 3 days. Continue Zyprexa 5 mg h.s. Rest unchanged for now. The daughter wondered whether Xanax could cause tremors and we discussed how benzodiazepine withdrawal might contribute to tremors but not the benzodiazepine themselves and certainly the anxiety can do it as well. We will continue to monitor this. Assessment: Vital Signs/I&O: Vital Signs Date Time Temp Pulse Resp B/P (MAP) Pulse Ox O2 Delivery O2 Flow Rate FiO2 12/19/20 06:12 97.2 77 20 146/79 (101) 97 Room Air I & O 12/18/20 12/18/20 12/19/20 15:00 23:00 07:00 Intake Total 360 ml 120 ml Balance 360 ml 120 ml Current Medications: Meds: Current Medications Medications (Trade) Dose Ordered Sig/Cathryn Route PRN Reason Start Time Stop Time Status Last Admin Dose Admin Albuterol Sulfate (Ventolin) 90 mg PRN QID PRN IH wheezing 12/11/20 22:00 UNV Alprazolam (Xanax) 0.5 mg PRN TID PRN PO ANXIETY / AGITATION 12/11/20 22:00 12/11/20 22:45 DC Benztropine Mesylate (Cogentin) 0.5 mg HS PO 12/12/20 21:00 12/11/20 22:45 DC Diphenhydramine HCl (Benadryl) 25 mg PRN Q4HRS PRN PO ANXIETY / AGITATION 12/11/20 22:00 Olanzapine (ZyPREXA ZYDIS) 2.5 mg PRN Q2HRS PRN PO ANXIETY / AGITATION 12/11/20 22:00 12/12/20 05:58 Trazodone HCl (Desyrel) 50 mg PRN QHS PRN PO INSOMNIA, MAY REPEAT X2 12/11/20 22:00 12/11/20 23:04 Fluticasone Propionate (Flonase) 2 spray PRN DAILY PRN NS ALLERGIES 12/11/20 22:30 12/12/20 13:31 Non-Formulary Medication (Ginkgo Biloba [place] Extract (Ginkgo Biloba)) 30 mg DAILY PO 12/12/20 09:00 UNV Pyridoxine HCl (Vitamin B-6) 50 mg DAILY PO 12/12/20 09:00 12/18/20 08:53 Vitamin E (Vitamin E) 200 unit DAILY PO 12/12/20 09:00 12/18/20 08:53 Albuterol Sulfate (Ventolin Hfa Inhaler) 2 puff PRN QID PRN INH SHORTNESS OF BREATH 12/11/20 22:30 12/12/20 13:31 Alprazolam (Xanax) 0.5 mg TID PO 12/11/20 22:45 12/18/20 21:23 Benztropine Mesylate (Cogentin) 0.5 mg HS PO 12/11/20 22:45 12/18/20 21:23 Acetaminophen (Tylenol) 650 mg PRN Q6HRS PRN PO MILD PAIN / TEMP > 100.3'F 12/11/20 23:15 Multi-Ingredient Ointment (Analgesic [place]) 1 dinora PRN QID PRN TP MUSCLE PAIN 12/11/20 23:15 Al Hydroxide/Mg Hydroxide (Mylanta Plus Xs) 15 ml PRN AFTMEALHC PRN PO DYSPEPSIA 12/11/20 23:15 Magnesium Hydroxide (Milk Of Magnesia) 2,400 mg PRN QHS PRN PO CONSTIPATION 12/11/20 23:15 Pantoprazole Sodium (Protonix) 40 mg DAILYAC PO 12/13/20 07:30 12/18/20 08:52 Olanzapine (ZyPREXA) 5 mg HS PO 12/14/20 21:00 12/18/20 21:23 Duloxetine HCl (Cymbalta) 30 mg DAILY PO 12/15/20 09:00 12/15/20 18:47 DC 12/15/20 08:01 Divalproex Sodium (Depakote Sprinkles) 250 mg HS PO 12/18/20 21:00 12/18/20 11:37 DC Divalproex Sodium (Depakote Er) 250 mg QHS PO 12/18/20 21:00 12/18/20 21:23 Current Medications Medications (Trade) Dose Ordered Sig/Cathryn Route PRN Reason Start Time Stop Time Status Last Admin Dose Admin Divalproex Sodium (Depakote Er) 250 mg QHS PO 12/18/20 21:00 12/18/20 21:23 I have reviewed the current psychotropics carefully including drug interactions. Risk benefit ratio favors no change other than as noted in my dictated progress note. Diagnosis: Problems: (1) Anxiety disorder, unspecified (2) Major depressive disorder with psychotic features (3) Mild cognitive impairment (4) Bipolar disorder, current episode mixed, severe, with psychotic features ERON MEDRANO MD Dec 19, 2020 06:48
[2020-12-19 06:51] LABS: ALBUMIN 3.4 g/dL (3.4-5.0); ALBUMIN/GLOBULIN RATIO 1.2 (1.0-1.7); CALCIUM 8.6 mg/dL (8.5-10.1); CREATININE 0.7 mg/dL (0.6-1.0); GFR 82.3; POTASSIUM 3.5 mmol/L (3.5-5.1); TOTAL BILIRUBIN 0.9 mg/dL (0.2-1.0); TOTAL PROTEIN 6.2 g/dL (6.4-8.2)
[2020-12-19] MEDS: PANTOPRAZOLE 40 MG TABLET. PO SCH (08:47)
[2020-12-19] MEDS: VITAMIN E 200 UNIT CAPSULE. PO SCH (08:47)
[2020-12-19] MEDS: PYRIDOXINE 50 MG TABLET. PO SCH (08:47)
[2020-12-19] MEDS: ALPRAZolam 0.5 MG TABLET PO SCH ×3 (08:47→20:27)
--- NOTE | 2020-12-19 09:19 | NUR ---
Pt has been appropriate this shift. A&Ox4, she takes significant pauses when answering assessment questions. Absent of SI/HI/VH/AH/delusions at this time, she denies pain when asked. Involuntary movement/jerking of the BLE, BUE, and torso is noted. Pt remains in bed and does not interact with others. She is med compliant and is receptive to education provided. Plan of care continues, will pass to next shift.
[2020-12-19 15:44] VITALS: BP 111/69
[2020-12-19] MEDS: BENZTROPINE MESYLATE 0.5 MG TABLET PO SCH (20:27)
[2020-12-19] MEDS: OLANZapine 2.5 MG TABLET PO SCH (20:27)
[2020-12-19] MEDS: DIVALPROEX ER 250 MG TAB.ER.24H. PO SCH (20:27)
--- NOTE | 2020-12-19 22:07 | PDOC ---
Exam Note: Carlos Note: Please also refer to the separate dictated note~for this date of service dictated separately.~Patient seen individually. Discussed the patient with Nursing staff reviewed the chart.~Reviewed interim history and current functioning. Reviewed vital signs,~Labs/ Radiology~and current medications noted below. Continue current treatment with the changes noted in the dictated addendum note Assessment: Vital Signs/I&O: Vital Signs Date Time Temp Pulse Resp B/P (MAP) Pulse Ox O2 Delivery O2 Flow Rate FiO2 12/19/20 15:44 97.5 72 17 111/69 (83) 98 12/19/20 06:12 Room Air I & O 12/18/20 12/18/20 12/19/20 14:59 22:59 06:59 Intake Total 360 ml 120 ml Balance 360 ml 120 ml Labs: Laboratory Tests Test 12/19/20 06:18 White Blood Count 6.1 x10^3/uL (4.0-11.0) Red Blood Count 4.41 x10^6/uL (3.50-5.40) Hemoglobin 13.7 g/dL (12.0-15.5) Hematocrit 40.3 % (36.0-47.0) Mean Corpuscular Volume 92 fL (79-100) Mean Corpuscular Hemoglobin 31 pg (25-35) Mean Corpuscular Hemoglobin Concent 34 g/dL (31-37) Red Cell Distribution Width 13.3 % (11.5-14.5) Platelet Count 328 x10^3/uL (140-400) Neutrophils (%) (Auto) 46 % (31-73) Lymphocytes (%) (Auto) 46 % (24-48) Monocytes (%) (Auto) 6 % (0-9) Eosinophils (%) (Auto) 2 % (0-3) Basophils (%) (Auto) 1 % (0-3) Neutrophils # (Auto) 2.8 x10^3uL (1.8-7.7) Lymphocytes # (Auto) 2.8 x10^3/uL (1.0-4.8) Monocytes # (Auto) 0.4 x10^3/uL (0.0-1.1) Eosinophils # (Auto) 0.1 x10^3/uL (0.0-0.7) Basophils # (Auto) 0.0 x10^3/uL (0.0-0.2) Sodium Level 143 mmol/L (136-145) Potassium Level 3.5 mmol/L (3.5-5.1) Chloride Level 107 mmol/L (98-107) Carbon Dioxide Level 27 mmol/L (21-32) Anion Gap 9 (6-14) Blood Urea Nitrogen 17 mg/dL (7-20) Creatinine 0.7 mg/dL (0.6-1.0) Estimated GFR (Cockcroft-Gault) 82.3 BUN/Creatinine Ratio 24 (6-20) H Glucose Level 90 mg/dL (70-99) Calcium Level 8.6 mg/dL (8.5-10.1) Total Bilirubin 0.9 mg/dL (0.2-1.0) Aspartate Amino Transferase (AST) 38 U/L (15-37) H Alanine Aminotransferase (ALT) 55 U/L (14-59) Alkaline Phosphatase 72 U/L (46-116) Total Protein 6.2 g/dL (6.4-8.2) L Albumin 3.4 g/dL (3.4-5.0) Albumin/Globulin Ratio 1.2 (1.0-1.7) Current Medications: Meds: Laboratory Tests Test 12/19/20 06:18 White Blood Count 6.1 x10^3/uL Red Blood Count 4.41 x10^6/uL Hemoglobin 13.7 g/dL Hematocrit 40.3 % Mean Corpuscular Volume 92 fL Mean Corpuscular Hemoglobin 31 pg Mean Corpuscular Hemoglobin Concent 34 g/dL Red Cell Distribution Width 13.3 % Platelet Count 328 x10^3/uL Neutrophils (%) (Auto) 46 % Lymphocytes (%) (Auto) 46 % Monocytes (%) (Auto) 6 % Eosinophils (%) (Auto) 2 % Basophils (%) (Auto) 1 % Neutrophils # (Auto) 2.8 x10^3uL Lymphocytes # (Auto) 2.8 x10^3/uL Monocytes # (Auto) 0.4 x10^3/uL Eosinophils # (Auto) 0.1 x10^3/uL Basophils # (Auto) 0.0 x10^3/uL Sodium Level 143 mmol/L Potassium Level 3.5 mmol/L Chloride Level 107 mmol/L Carbon Dioxide Level 27 mmol/L Anion Gap 9 Blood Urea Nitrogen 17 mg/dL Creatinine 0.7 mg/dL Estimated GFR (Cockcroft-Gault) 82.3 BUN/Creatinine Ratio 24 Glucose Level 90 mg/dL Calcium Level 8.6 mg/dL Total Bilirubin 0.9 mg/dL Aspartate Amino Transf (AST/SGOT) 38 U/L Alanine Aminotransferase (ALT/SGPT) 55 U/L Alkaline Phosphatase 72 U/L Total Protein 6.2 g/dL Albumin 3.4 g/dL Albumin/Globulin Ratio 1.2 Current Medications Medications (Trade) Dose Ordered Sig/Cathryn Route PRN Reason Start Time Stop Time Status Last Admin Dose Admin Albuterol Sulfate (Ventolin) 90 mg PRN QID PRN IH wheezing 12/11/20 22:00 UNV Alprazolam (Xanax) 0.5 mg PRN TID PRN PO ANXIETY / AGITATION 12/11/20 22:00 12/11/20 22:45 DC Benztropine Mesylate (Cogentin) 0.5 mg HS PO 12/12/20 21:00 12/11/20 22:45 DC Diphenhydramine HCl (Benadryl) 25 mg PRN Q4HRS PRN PO ANXIETY / AGITATION 12/11/20 22:00 Olanzapine (ZyPREXA ZYDIS) 2.5 mg PRN Q2HRS PRN PO ANXIETY / AGITATION 12/11/20 22:00 12/12/20 05:58 Trazodone HCl (Desyrel) 50 mg PRN QHS PRN PO INSOMNIA, MAY REPEAT X2 12/11/20 22:00 12/11/20 23:04 Fluticasone Propionate (Flonase) 2 spray PRN DAILY PRN NS ALLERGIES 12/11/20 22:30 12/12/20 13:31 Non-Formulary Medication (Ginkgo Biloba [place] Extract (Ginkgo Biloba)) 30 mg DAILY PO 12/12/20 09:00 UNV Pyridoxine HCl (Vitamin B-6) 50 mg DAILY PO 12/12/20 09:00 12/19/20 08:47 Vitamin E (Vitamin E) 200 unit DAILY PO 12/12/20 09:00 12/19/20 08:47 Albuterol Sulfate (Ventolin Hfa Inhaler) 2 puff PRN QID PRN INH SHORTNESS OF BREATH 12/11/20 22:30 12/12/20 13:31 Alprazolam (Xanax) 0.5 mg TID PO 12/11/20 22:45 12/19/20 20:27 Benztropine Mesylate (Cogentin) 0.5 mg HS PO 12/11/20 22:45 12/19/20 20:27 Acetaminophen (Tylenol) 650 mg PRN Q6HRS PRN PO MILD PAIN / TEMP > 100.3'F 12/11/20 23:15 Multi-Ingredient Ointment (Analgesic [place]) 1 dinora PRN QID PRN TP MUSCLE PAIN 12/11/20 23:15 Al Hydroxide/Mg Hydroxide (Mylanta Plus Xs) 15 ml PRN AFTMEALHC PRN PO DYSPEPSIA 12/11/20 23:15 Magnesium Hydroxide (Milk Of Magnesia) 2,400 mg PRN QHS PRN PO CONSTIPATION 12/11/20 23:15 Pantoprazole Sodium (Protonix) 40 mg DAILYAC PO 12/13/20 07:30 12/19/20 08:47 Olanzapine (ZyPREXA) 5 mg HS PO 12/14/20 21:00 12/19/20 20:27 Duloxetine HCl (Cymbalta) 30 mg DAILY PO 12/15/20 09:00 12/15/20 18:47 DC 12/15/20 08:01 Divalproex Sodium (Depakote Sprinkles) 250 mg HS PO 12/18/20 21:00 12/18/20 11:37 DC Divalproex Sodium (Depakote Er) 250 mg QHS PO 12/18/20 21:00 12/19/20 20:27 I have reviewed the current psychotropics carefully including drug interactions. Risk benefit ratio favors no change other than as noted in my dictated progress note. Diagnosis: Problems: (1) Anxiety disorder, unspecified (2) Major depressive disorder with psychotic features (3) Mild cognitive impairment (4) Bipolar disorder, current episode mixed, severe, with psychotic features ERON MEDRANO MD Dec 19, 2020 22:07
--- NOTE | 2020-12-19 23:32 | NUR ---
Patient is located in her room for assessments and medications, awake in bed. More interactive, answers questions appropriately. Wants to be told what each medication is and what it is for. No involuntary movements noted during assessment. Compliant with medications whole. Denies SI. Denies any pain or discomfort. She appears to be sleeping comfortably at present time. Will continue to monitor.
[2020-12-20] MEDS: ALBUTEROL SULFATE 8GM INHALER. INH PRN (04:26)
[2020-12-20 05:17] VITALS: BP 128/50
--- NOTE | 2020-12-20 07:02 | PDOC ---
Exam Note: Carlos Note: This note is a late entry for 12/19/2020overs elements not covered in my initial note. Subjective: The patient was seen on telehealth rounds in the evening of 12/19/2020 due to COVID-19 exposure on the unit with Stephenie RUTH, discussed and reviewed the chart. She slept for 9-1/4 hours previous night. The patient remains withdrawn, spends much time in her room, somewhat anxious still has some ongoing mood lability, easily startled. Review of Systems: No CV, , pulmonary, eye, ENT system symptoms on review. Mental Status Exam: The patient is oriented to herself and situation. Speech has some latency coherent. Abstraction fair. Computation impaired. Language function intact. Attention span short. Mood and affect somewhat withdrawn. Laboratory Data: Reviewed. Impression: Bipolar disorder mixed episode with possible psychotic features. Anxiety disorder unspecified. Impulse control disorder unspecified. Plan: No change from initial note. Depakote has been initiated. Maintain Zyprexa. Rest psychotropics unchanged for now. Assessment: Vital Signs/I&O: Vital Signs Date Time Temp Pulse Resp B/P (MAP) Pulse Ox O2 Delivery O2 Flow Rate FiO2 12/20/20 05:17 97.5 109 20 128/50 (76) 97 12/19/20 06:12 Room Air I & O 12/19/20 12/19/20 12/20/20 15:00 23:00 07:00 Intake Total 360 ml 480 ml Balance 360 ml 480 ml Current Medications: Meds: Current Medications Medications (Trade) Dose Ordered Sig/Cathryn Route PRN Reason Start Time Stop Time Status Last Admin Dose Admin Albuterol Sulfate (Ventolin) 90 mg PRN QID PRN IH wheezing 12/11/20 22:00 UNV Alprazolam (Xanax) 0.5 mg PRN TID PRN PO ANXIETY / AGITATION 12/11/20 22:00 12/11/20 22:45 DC Benztropine Mesylate (Cogentin) 0.5 mg HS PO 12/12/20 21:00 12/11/20 22:45 DC Diphenhydramine HCl (Benadryl) 25 mg PRN Q4HRS PRN PO ANXIETY / AGITATION 12/11/20 22:00 Olanzapine (ZyPREXA ZYDIS) 2.5 mg PRN Q2HRS PRN PO ANXIETY / AGITATION 12/11/20 22:00 12/12/20 05:58 Trazodone HCl (Desyrel) 50 mg PRN QHS PRN PO INSOMNIA, MAY REPEAT X2 12/11/20 22:00 12/11/20 23:04 Fluticasone Propionate (Flonase) 2 spray PRN DAILY PRN NS ALLERGIES 12/11/20 22:30 12/12/20 13:31 Non-Formulary Medication (Ginkgo Biloba [place] Extract (Ginkgo Biloba)) 30 mg DAILY PO 12/12/20 09:00 UNV Pyridoxine HCl (Vitamin B-6) 50 mg DAILY PO 12/12/20 09:00 12/19/20 08:47 Vitamin E (Vitamin E) 200 unit DAILY PO 12/12/20 09:00 12/19/20 08:47 Albuterol Sulfate (Ventolin Hfa Inhaler) 2 puff PRN QID PRN INH SHORTNESS OF BREATH 12/11/20 22:30 12/20/20 04:26 Alprazolam (Xanax) 0.5 mg TID PO 12/11/20 22:45 12/19/20 20:27 Benztropine Mesylate (Cogentin) 0.5 mg HS PO 12/11/20 22:45 12/19/20 20:27 Acetaminophen (Tylenol) 650 mg PRN Q6HRS PRN PO MILD PAIN / TEMP > 100.3'F 12/11/20 23:15 Multi-Ingredient Ointment (Analgesic [place]) 1 dinora PRN QID PRN TP MUSCLE PAIN 12/11/20 23:15 Al Hydroxide/Mg Hydroxide (Mylanta Plus Xs) 15 ml PRN AFTMEALHC PRN PO DYSPEPSIA 12/11/20 23:15 Magnesium Hydroxide (Milk Of Magnesia) 2,400 mg PRN QHS PRN PO CONSTIPATION 12/11/20 23:15 Pantoprazole Sodium (Protonix) 40 mg DAILYAC PO 12/13/20 07:30 12/19/20 08:47 Olanzapine (ZyPREXA) 5 mg HS PO 12/14/20 21:00 12/19/20 20:27 Duloxetine HCl (Cymbalta) 30 mg DAILY PO 12/15/20 09:00 12/15/20 18:47 DC 12/15/20 08:01 Divalproex Sodium (Depakote Sprinkles) 250 mg HS PO 12/18/20 21:00 12/18/20 11:37 DC Divalproex Sodium (Depakote Er) 250 mg QHS PO 12/18/20 21:00 12/19/20 20:27 I have reviewed the current psychotropics carefully including drug interactions. Risk benefit ratio favors no change other than as noted in my dictated progress note. Diagnosis: Problems: (1) Anxiety disorder, unspecified (2) Major depressive disorder with psychotic features (3) Mild cognitive impairment (4) Bipolar disorder, current episode mixed, severe, with psychotic features ERON MEDRANO MD Dec 20, 2020 07:02
[2020-12-20] MEDS: ALPRAZolam 0.5 MG TABLET PO SCH ×3 (08:12→20:01)
[2020-12-20] MEDS: PANTOPRAZOLE 40 MG TABLET. PO SCH (08:12)
[2020-12-20] MEDS: PYRIDOXINE 50 MG TABLET. PO SCH (08:12)
[2020-12-20] MEDS: VITAMIN E 200 UNIT CAPSULE. PO SCH (08:12)
--- NOTE | 2020-12-20 10:33 | NUR ---
Pt visible on the unit this morning and then retired back to bed shortly after breakfast. She did not eat much of her breakfast despite multiple attempts at encouragement by staff. Her behaviors have been appropriate so far this shift. Absent of SI/HI/VH/AH/delusions/pain. She is compliant with whole medications and receptive to medication education. Pt remains very flat in affect and does not go out of her way to interact much with others on the unit. Plan of care continues, will pass to next shift.
[2020-12-20 16:00] VITALS: BP 162/75
[2020-12-20] MEDS: BENZTROPINE MESYLATE 0.5 MG TABLET PO SCH (20:01)
[2020-12-20] MEDS: DIVALPROEX ER 250 MG TAB.ER.24H. PO SCH (20:01)
[2020-12-20] MEDS: OLANZapine 2.5 MG TABLET PO SCH (20:02)
[2020-12-21] MEDS: ALBUTEROL SULFATE 8GM INHALER. INH PRN (02:30)
[2020-12-21] MEDS: FLUTICASONE 50MCG/NASAL SPRAY 16GM BOTTLE. NS PRN (02:30)
[2020-12-21 05:48] VITALS: BP 128/72
[2020-12-21 07:09] LABS: BASO % 1 % (0-3); EOS # 0.1 x10^3/uL (0.0-0.7); EOS % 2 % (0-3); HEMATOCRIT 37.6 % (36.0-47.0); HEMOGLOBIN 13.2 g/dL (12.0-15.5); LYMPH # 2.3 x10^3/uL (1.0-4.8); LYMPH % 36 % (24-48); MEAN CORPUSCULAR HEMOGLOBIN 32 pg (25-35); MEAN CORPUSCULAR HGB CONC 35 g/dL (31-37); MEAN CORPUSCULAR VOLUME 91 fL (79-100); MONO # 0.4 x10^3/uL (0.0-1.1); MONO % 6 % (0-9); NEUT # 3.7 x10^3uL (1.8-7.7); NEUT % 57 % (31-73); PLATELET COUNT 310 x10^3/uL (140-400); RED BLOOD COUNT 4.14 x10^6/uL (3.50-5.40); RED CELL DISTRIBUTION WIDTH 13.5 % (11.5-14.5); WHITE BLOOD COUNT 6.6 x10^3/uL (4.0-11.0)
[2020-12-21 07:22] LABS: ALBUMIN 3.3 g/dL (3.4-5.0); ALBUMIN/GLOBULIN RATIO 1.2 (1.0-1.7); ALK PHOS 70 U/L (46-116); ALT (SGPT) 46 U/L (14-59); ANION GAP 7 (6-14); AST (SGOT) 22 U/L (15-37); BLOOD UREA NITROGEN 13 mg/dL (7-20); BUN/CREATININE RATIO 16 (6-20); CALCIUM 8.7 mg/dL (8.5-10.1); CARBON DIOXIDE 28 mmol/L (21-32); CHLORIDE 109 mmol/L (98-107); CREATININE 0.8 mg/dL (0.6-1.0); GFR 70.5; GLUCOSE 90 mg/dL (70-99); POTASSIUM 3.7 mmol/L (3.5-5.1); SODIUM 144 mmol/L (136-145); TOTAL BILIRUBIN 0.7 mg/dL (0.2-1.0); TOTAL PROTEIN 6.1 g/dL (6.4-8.2)
[2020-12-21 07:27] LABS: VAL ACID 18 mcg/mL (50-100)
[2020-12-21] MEDS: PANTOPRAZOLE 40 MG TABLET. PO SCH (08:20)
[2020-12-21] MEDS: VITAMIN E 200 UNIT CAPSULE. PO SCH (08:21)
[2020-12-21] MEDS: PYRIDOXINE 50 MG TABLET. PO SCH (08:21)
[2020-12-21] MEDS: ALPRAZolam 0.5 MG TABLET PO SCH ×3 (08:21→19:57)
--- NOTE | 2020-12-21 13:26 | NUR ---
Patient confused alert to self. No abnormal movements noted. Patient is compliant with medication and redirection from staff. Withdraws to room after meals. In day room for a short period for music time.
[2020-12-21 15:45] VITALS: BP 129/79
[2020-12-21] MEDS ORDERED: POLYETHYLENE GLYCOL 3350 17 GM PACKET. PO PRN (15:45)
[2020-12-21] MEDS: BENZTROPINE MESYLATE 0.5 MG TABLET PO SCH (19:57)
[2020-12-21] MEDS: OLANZapine 2.5 MG TABLET PO SCH (19:57)
[2020-12-21] MEDS ORDERED: DIVALPROEX ER 500 MG TAB.ER.24H PO SCH (21:00)
--- NOTE | 2020-12-21 21:17 | NUR ---
Patient is located in her room for assessments and medications, awake in bed. Wants to be told what each medication is and what it is for. No involuntary movements noted during assessment. Compliant with medications whole. Denies SI. Denies any pain or discomfort. She appears to be sleeping comfortably at present time. Will continue to monitor.
--- NOTE | 2020-12-21 22:00 | PDOC ---
Exam Note: Carlos Note: Please also refer to the separate dictated note~for this date of service dictated separately.~Patient seen individually. Discussed the patient with Nursing staff reviewed the chart.~Reviewed interim history and current functioning. Reviewed vital signs,~Labs/ Radiology~and current medications noted below. Continue current treatment with the changes noted in the dictated addendum note Assessment: Vital Signs/I&O: Vital Signs Date Time Temp Pulse Resp B/P (MAP) Pulse Ox O2 Delivery O2 Flow Rate FiO2 12/21/20 15:45 97.6 91 20 129/79 (96) 98 12/19/20 06:12 Room Air I & O 12/20/20 12/20/20 12/21/20 15:00 23:00 07:00 Intake Total 600 ml 240 ml Balance 600 ml 240 ml Labs: Laboratory Tests Test 12/21/20 06:48 White Blood Count 6.6 x10^3/uL (4.0-11.0) Red Blood Count 4.14 x10^6/uL (3.50-5.40) Hemoglobin 13.2 g/dL (12.0-15.5) Hematocrit 37.6 % (36.0-47.0) Mean Corpuscular Volume 91 fL (79-100) Mean Corpuscular Hemoglobin 32 pg (25-35) Mean Corpuscular Hemoglobin Concent 35 g/dL (31-37) Red Cell Distribution Width 13.5 % (11.5-14.5) Platelet Count 310 x10^3/uL (140-400) Neutrophils (%) (Auto) 57 % (31-73) Lymphocytes (%) (Auto) 36 % (24-48) Monocytes (%) (Auto) 6 % (0-9) Eosinophils (%) (Auto) 2 % (0-3) Basophils (%) (Auto) 1 % (0-3) Neutrophils # (Auto) 3.7 x10^3uL (1.8-7.7) Lymphocytes # (Auto) 2.3 x10^3/uL (1.0-4.8) Monocytes # (Auto) 0.4 x10^3/uL (0.0-1.1) Eosinophils # (Auto) 0.1 x10^3/uL (0.0-0.7) Basophils # (Auto) 0.0 x10^3/uL (0.0-0.2) Sodium Level 144 mmol/L (136-145) Potassium Level 3.7 mmol/L (3.5-5.1) Chloride Level 109 mmol/L (98-107) H Carbon Dioxide Level 28 mmol/L (21-32) Anion Gap 7 (6-14) Blood Urea Nitrogen 13 mg/dL (7-20) Creatinine 0.8 mg/dL (0.6-1.0) Estimated GFR (Cockcroft-Gault) 70.5 BUN/Creatinine Ratio 16 (6-20) Glucose Level 90 mg/dL (70-99) Calcium Level 8.7 mg/dL (8.5-10.1) Total Bilirubin 0.7 mg/dL (0.2-1.0) Aspartate Amino Transferase (AST) 22 U/L (15-37) Alanine Aminotransferase (ALT) 46 U/L (14-59) Alkaline Phosphatase 70 U/L (46-116) Total Protein 6.1 g/dL (6.4-8.2) L Albumin 3.3 g/dL (3.4-5.0) L Albumin/Globulin Ratio 1.2 (1.0-1.7) Valproic Acid Level 18 mcg/mL (50-100) L Valproic Acid Last Dose Date 12/19/2020 Valproic Acid Last Dose Time 2100 Current Medications: Meds: Laboratory Tests Test 12/21/20 06:48 White Blood Count 6.6 x10^3/uL Red Blood Count 4.14 x10^6/uL Hemoglobin 13.2 g/dL Hematocrit 37.6 % Mean Corpuscular Volume 91 fL Mean Corpuscular Hemoglobin 32 pg Mean Corpuscular Hemoglobin Concent 35 g/dL Red Cell Distribution Width 13.5 % Platelet Count 310 x10^3/uL Neutrophils (%) (Auto) 57 % Lymphocytes (%) (Auto) 36 % Monocytes (%) (Auto) 6 % Eosinophils (%) (Auto) 2 % Basophils (%) (Auto) 1 % Neutrophils # (Auto) 3.7 x10^3uL Lymphocytes # (Auto) 2.3 x10^3/uL Monocytes # (Auto) 0.4 x10^3/uL Eosinophils # (Auto) 0.1 x10^3/uL Basophils # (Auto) 0.0 x10^3/uL Sodium Level 144 mmol/L Potassium Level 3.7 mmol/L Chloride Level 109 mmol/L Carbon Dioxide Level 28 mmol/L Anion Gap 7 Blood Urea Nitrogen 13 mg/dL Creatinine 0.8 mg/dL Estimated GFR (Cockcroft-Gault) 70.5 BUN/Creatinine Ratio 16 Glucose Level 90 mg/dL Calcium Level 8.7 mg/dL Total Bilirubin 0.7 mg/dL Aspartate Amino Transf (AST/SGOT) 22 U/L Alanine Aminotransferase (ALT/SGPT) 46 U/L Alkaline Phosphatase 70 U/L Total Protein 6.1 g/dL Albumin 3.3 g/dL Albumin/Globulin Ratio 1.2 Valproic Acid (Depakene) Level 18 mcg/mL Valproic Acid Last Dose Date 12/19/2020 Valproic Acid Last Dose Time 2100 Current Medications Medications (Trade) Dose Ordered Sig/Cathryn Route PRN Reason Start Time Stop Time Status Last Admin Dose Admin Albuterol Sulfate (Ventolin) 90 mg PRN QID PRN IH wheezing 12/11/20 22:00 UNV Alprazolam (Xanax) 0.5 mg PRN TID PRN PO ANXIETY / AGITATION 12/11/20 22:00 12/11/20 22:45 DC Benztropine Mesylate (Cogentin) 0.5 mg HS PO 12/12/20 21:00 12/11/20 22:45 DC Diphenhydramine HCl (Benadryl) 25 mg PRN Q4HRS PRN PO ANXIETY / AGITATION 12/11/20 22:00 Olanzapine (ZyPREXA ZYDIS) 2.5 mg PRN Q2HRS PRN PO ANXIETY / AGITATION 12/11/20 22:00 12/12/20 05:58 Trazodone HCl (Desyrel) 50 mg PRN QHS PRN PO INSOMNIA, MAY REPEAT X2 12/11/20 22:00 12/11/20 23:04 Fluticasone Propionate (Flonase) 2 spray PRN DAILY PRN NS ALLERGIES 12/11/20 22:30 12/21/20 02:30 Non-Formulary Medication (Ginkgo Biloba [place] Extract (Ginkgo Biloba)) 30 mg DAILY PO 12/12/20 09:00 UNV Pyridoxine HCl (Vitamin B-6) 50 mg DAILY PO 12/12/20 09:00 12/21/20 08:21 Vitamin E (Vitamin E) 200 unit DAILY PO 12/12/20 09:00 12/21/20 08:21 Albuterol Sulfate (Ventolin Hfa Inhaler) 2 puff PRN QID PRN INH SHORTNESS OF BREATH 12/11/20 22:30 12/21/20 02:30 Alprazolam (Xanax) 0.5 mg TID PO 12/11/20 22:45 12/21/20 19:57 Benztropine Mesylate (Cogentin) 0.5 mg HS PO 12/11/20 22:45 12/21/20 19:57 Acetaminophen (Tylenol) 650 mg PRN Q6HRS PRN PO MILD PAIN / TEMP > 100.3'F 12/11/20 23:15 Multi-Ingredient Ointment (Analgesic [place]) 1 dinora PRN QID PRN TP MUSCLE PAIN 12/11/20 23:15 Al Hydroxide/Mg Hydroxide (Mylanta Plus Xs) 15 ml PRN AFTMEALHC PRN PO DYSPEPSIA 12/11/20 23:15 Magnesium Hydroxide (Milk Of Magnesia) 2,400 mg PRN QHS PRN PO CONSTIPATION 12/11/20 23:15 Pantoprazole Sodium (Protonix) 40 mg DAILYAC PO 12/13/20 07:30 12/21/20 08:20 Olanzapine (ZyPREXA) 5 mg HS PO 12/14/20 21:00 12/21/20 19:57 Duloxetine HCl (Cymbalta) 30 mg DAILY PO 12/15/20 09:00 12/15/20 18:47 DC 12/15/20 08:01 Divalproex Sodium (Depakote Sprinkles) 250 mg HS PO 12/18/20 21:00 12/18/20 11:37 DC Divalproex Sodium (Depakote Er) 250 mg QHS PO 12/18/20 21:00 12/21/20 17:00 DC 12/20/20 20:01 Polyethylene Glycol (miraLAX) 17 gm PRN DAILY PRN PO CONSTIPATION 12/21/20 15:45 12/21/20 15:51 Divalproex Sodium (Depakote Er) 500 mg QHS PO 12/21/20 21:00 12/21/20 19:57 Current Medications Medications (Trade) Dose Ordered Sig/Cathryn Route PRN Reason Start Time Stop Time Status Last Admin Dose Admin Polyethylene Glycol (miraLAX) 17 gm PRN DAILY PRN PO CONSTIPATION 12/21/20 15:45 12/21/20 15:51 Divalproex Sodium (Depakote Er) 500 mg QHS PO 12/21/20 21:00 12/21/20 19:57 I have reviewed the current psychotropics carefully including drug interactions. Risk benefit ratio favors no change other than as noted in my dictated progress note. Diagnosis: Problems: (1) Anxiety disorder, unspecified (2) Major depressive disorder with psychotic features (3) Mild cognitive impairment (4) Bipolar disorder, current episode mixed, severe, with psychotic features ERON MEDRANO MD Dec 21, 2020 22:00
[2020-12-22 06:15] VITALS: BP 135/75
[2020-12-22] MEDS: PYRIDOXINE 50 MG TABLET. PO SCH (08:02)
[2020-12-22] MEDS: PANTOPRAZOLE 40 MG TABLET. PO SCH (08:02)
[2020-12-22] MEDS: VITAMIN E 200 UNIT CAPSULE. PO SCH (08:02)
[2020-12-22] MEDS: ALPRAZolam 0.5 MG TABLET PO SCH ×3 (09:57→20:35)
--- NOTE | 2020-12-22 14:43 | NUR ---
Nursing Note Pt is up in dining room for a short time, eats a fair amount of her lunch. No involuntary movements noted, seems improved, not as talkative as she was yesterday. Slept in between breakfast and lunch. No agitation today.
[2020-12-22 15:55] VITALS: BP 149/88
[2020-12-22] MEDS: OLANZapine 2.5 MG TABLET PO SCH (20:35)
[2020-12-22] MEDS: BENZTROPINE MESYLATE 0.5 MG TABLET PO SCH (20:35)
[2020-12-22] MEDS ORDERED: DIVALPROEX ER 500 MG TAB.ER.24H PO SCH (21:00)
--- NOTE | 2020-12-22 21:49 | PDOC ---
Exam Note: Carlos Note: Please also refer to the separate dictated note~for this date of service dictated separately.~Patient seen individually. Discussed the patient with Nursing staff reviewed the chart.~Reviewed interim history and current functioning. Reviewed vital signs,~Labs/ Radiology~and current medications noted below. Continue current treatment with the changes noted in the dictated addendum note Assessment: Vital Signs/I&O: Vital Signs Date Time Temp Pulse Resp B/P (MAP) Pulse Ox O2 Delivery O2 Flow Rate FiO2 12/22/20 15:55 97.8 76 16 149/88 (108) 97 12/19/20 06:12 Room Air I & O 12/21/20 12/21/20 12/22/20 15:00 23:00 07:00 Intake Total 480 ml 480 ml Balance 480 ml 480 ml Current Medications: Meds: Current Medications Medications (Trade) Dose Ordered Sig/Cathryn Route PRN Reason Start Time Stop Time Status Last Admin Dose Admin Albuterol Sulfate (Ventolin) 90 mg PRN QID PRN IH wheezing 12/11/20 22:00 UNV Alprazolam (Xanax) 0.5 mg PRN TID PRN PO ANXIETY / AGITATION 12/11/20 22:00 12/11/20 22:45 DC Benztropine Mesylate (Cogentin) 0.5 mg HS PO 12/12/20 21:00 12/11/20 22:45 DC Diphenhydramine HCl (Benadryl) 25 mg PRN Q4HRS PRN PO ANXIETY / AGITATION 12/11/20 22:00 Olanzapine (ZyPREXA ZYDIS) 2.5 mg PRN Q2HRS PRN PO ANXIETY / AGITATION 12/11/20 22:00 12/12/20 05:58 Trazodone HCl (Desyrel) 50 mg PRN QHS PRN PO INSOMNIA, MAY REPEAT X2 12/11/20 22:00 12/11/20 23:04 Fluticasone Propionate (Flonase) 2 spray PRN DAILY PRN NS ALLERGIES 12/11/20 22:30 12/21/20 02:30 Non-Formulary Medication (Ginkgo Biloba [place] Extract (Ginkgo Biloba)) 30 mg DAILY PO 12/12/20 09:00 UNV Pyridoxine HCl (Vitamin B-6) 50 mg DAILY PO 12/12/20 09:00 12/22/20 08:02 Vitamin E (Vitamin E) 200 unit DAILY PO 12/12/20 09:00 12/22/20 08:02 Albuterol Sulfate (Ventolin Hfa Inhaler) 2 puff PRN QID PRN INH SHORTNESS OF BREATH 12/11/20 22:30 12/21/20 02:30 Alprazolam (Xanax) 0.5 mg TID PO 12/11/20 22:45 12/22/20 20:35 Benztropine Mesylate (Cogentin) 0.5 mg HS PO 12/11/20 22:45 12/22/20 20:35 Acetaminophen (Tylenol) 650 mg PRN Q6HRS PRN PO MILD PAIN / TEMP > 100.3'F 12/11/20 23:15 Multi-Ingredient Ointment (Analgesic [place]) 1 dinora PRN QID PRN TP MUSCLE PAIN 12/11/20 23:15 Al Hydroxide/Mg Hydroxide (Mylanta Plus Xs) 15 ml PRN AFTMEALHC PRN PO DYSPEPSIA 12/11/20 23:15 Magnesium Hydroxide (Milk Of Magnesia) 2,400 mg PRN QHS PRN PO CONSTIPATION 2ND CHOICE 12/11/20 23:15 Pantoprazole Sodium (Protonix) 40 mg DAILYAC PO 12/13/20 07:30 12/22/20 08:02 Olanzapine (ZyPREXA) 5 mg HS PO 12/14/20 21:00 12/22/20 20:35 Duloxetine HCl (Cymbalta) 30 mg DAILY PO 12/15/20 09:00 12/15/20 18:47 DC 12/15/20 08:01 Divalproex Sodium (Depakote Sprinkles) 250 mg HS PO 12/18/20 21:00 12/18/20 11:37 DC Divalproex Sodium (Depakote Er) 250 mg QHS PO 12/18/20 21:00 12/21/20 17:00 DC 12/20/20 20:01 Polyethylene Glycol (miraLAX) 17 gm PRN DAILY PRN PO CONSTIPATION 1ST CHOICE 12/21/20 15:45 12/21/20 15:51 Divalproex Sodium (Depakote Er) 500 mg QHS PO 12/21/20 21:00 12/22/20 18:07 DC 12/21/20 19:57 Divalproex Sodium (Depakote Er) 1,000 mg QHS PO 12/22/20 21:00 12/22/20 20:35 Current Medications Medications (Trade) Dose Ordered Sig/Cathryn Route PRN Reason Start Time Stop Time Status Last Admin Dose Admin Divalproex Sodium (Depakote Er) 1,000 mg QHS PO 12/22/20 21:00 12/22/20 20:35 I have reviewed the current psychotropics carefully including drug interactions. Risk benefit ratio favors no change other than as noted in my dictated progress note. Diagnosis: Problems: (1) Anxiety disorder, unspecified (2) Major depressive disorder with psychotic features (3) Mild cognitive impairment (4) Bipolar disorder, current episode mixed, severe, with psychotic features ERON MEDRANO MD Dec 22, 2020 21:49
--- NOTE | 2020-12-22 22:52 | NUR ---
Pt withdrawn to her room when approached. Pt calm, pleasant, and interactive but did become anxious and having slight abnormal movements when discussing recent medications changes. I provided pt with education regarding her medications and the need for continued lab monitoring which did seem to calm her some. Pt cooperative with assessment and compliant with medications administered whole. No paranoia or delusions noted thus far this shift.
[2020-12-23 05:45] VITALS: BP 135/79
--- NOTE | 2020-12-23 07:26 | PDOC ---
Exam Note: Carlos Note: This note is a late entry for 12/21/2020overs elements not covered in my initial note. Subjective: The patient was seen on telehealth rounds in the evening of 12/21/2020 due to COVID-19 exposure on the unit with Magnolia RUTH, discussed and reviewed the chart. She slept for 8 hours previous night. Valproic acid level is 18 on Depakote extended release 250 mg h.s. and we will increase this to 500 mg p.o. h.s. She has been somewhat withdrawn, but her anxiety is much improved and the abnormal movement she was exhibiting earlier has improved as well. She has been more interactive and talkative as well which is an improvement. She is coming out of her room. Review of Systems: Tremors are much better, less anxious. No CV, , pulmonary, eye, ENT system symptoms on review. Mental Status Exam: The patient is reasonably oriented. Speech coherent, less pressured, more forthcoming. Abstraction fair. Computation impaired. Language function intact. Attention span somewhat distractible. Mood and affect somewhat improved. No suicidal or homicidal ideation. Laboratory Data: Reviewed. Impression: Bipolar disorder mixed episode with possible psychotic features. Anxiety disorder unspecified. Impulse control disorder unspecified. Plan: No change from initial note. Valproic acid level is 18 on Depakote extended release 250 mg h.s. and we will increase this to 500 mg p.o. h.s. Check CBC, CMP, valproic acid level in 3 days. Assessment: Vital Signs/I&O: Vital Signs Date Time Temp Pulse Resp B/P (MAP) Pulse Ox O2 Delivery O2 Flow Rate FiO2 12/23/20 05:45 97.8 68 16 135/79 (97) 98 Room Air I & O 12/22/20 12/22/20 12/23/20 15:00 23:00 07:00 Intake Total 600 ml 360 ml Balance 600 ml 360 ml Current Medications: Meds: Current Medications Medications (Trade) Dose Ordered Sig/Cathryn Route PRN Reason Start Time Stop Time Status Last Admin Dose Admin Albuterol Sulfate (Ventolin) 90 mg PRN QID PRN IH wheezing 12/11/20 22:00 UNV Alprazolam (Xanax) 0.5 mg PRN TID PRN PO ANXIETY / AGITATION 12/11/20 22:00 12/11/20 22:45 DC Benztropine Mesylate (Cogentin) 0.5 mg HS PO 12/12/20 21:00 12/11/20 22:45 DC Diphenhydramine HCl (Benadryl) 25 mg PRN Q4HRS PRN PO ANXIETY / AGITATION 12/11/20 22:00 Olanzapine (ZyPREXA ZYDIS) 2.5 mg PRN Q2HRS PRN PO ANXIETY / AGITATION 12/11/20 22:00 12/12/20 05:58 Trazodone HCl (Desyrel) 50 mg PRN QHS PRN PO INSOMNIA, MAY REPEAT X2 12/11/20 22:00 12/11/20 23:04 Fluticasone Propionate (Flonase) 2 spray PRN DAILY PRN NS ALLERGIES 12/11/20 22:30 12/21/20 02:30 Non-Formulary Medication (Ginkgo Biloba [place] Extract (Ginkgo Biloba)) 30 mg DAILY PO 12/12/20 09:00 UNV Pyridoxine HCl (Vitamin B-6) 50 mg DAILY PO 12/12/20 09:00 12/22/20 08:02 Vitamin E (Vitamin E) 200 unit DAILY PO 12/12/20 09:00 12/22/20 08:02 Albuterol Sulfate (Ventolin Hfa Inhaler) 2 puff PRN QID PRN INH SHORTNESS OF BREATH 12/11/20 22:30 12/21/20 02:30 Alprazolam (Xanax) 0.5 mg TID PO 12/11/20 22:45 12/22/20 20:35 Benztropine Mesylate (Cogentin) 0.5 mg HS PO 12/11/20 22:45 12/22/20 20:35 Acetaminophen (Tylenol) 650 mg PRN Q6HRS PRN PO MILD PAIN / TEMP > 100.3'F 12/11/20 23:15 Multi-Ingredient Ointment (Analgesic [place]) 1 dinora PRN QID PRN TP MUSCLE PAIN 12/11/20 23:15 Al Hydroxide/Mg Hydroxide (Mylanta Plus Xs) 15 ml PRN AFTMEALHC PRN PO DYSPEPSIA 12/11/20 23:15 Magnesium Hydroxide (Milk Of Magnesia) 2,400 mg PRN QHS PRN PO CONSTIPATION 2ND CHOICE 12/11/20 23:15 Pantoprazole Sodium (Protonix) 40 mg DAILYAC PO 12/13/20 07:30 12/22/20 08:02 Olanzapine (ZyPREXA) 5 mg HS PO 12/14/20 21:00 12/22/20 20:35 Duloxetine HCl (Cymbalta) 30 mg DAILY PO 12/15/20 09:00 12/15/20 18:47 DC 12/15/20 08:01 Divalproex Sodium (Depakote Sprinkles) 250 mg HS PO 12/18/20 21:00 12/18/20 11:37 DC Divalproex Sodium (Depakote Er) 250 mg QHS PO 12/18/20 21:00 12/21/20 17:00 DC 12/20/20 20:01 Polyethylene Glycol (miraLAX) 17 gm PRN DAILY PRN PO CONSTIPATION 1ST CHOICE 12/21/20 15:45 12/21/20 15:51 Divalproex Sodium (Depakote Er) 500 mg QHS PO 12/21/20 21:00 12/22/20 18:07 DC 12/21/20 19:57 Divalproex Sodium (Depakote Er) 1,000 mg QHS PO 12/22/20 21:00 12/22/20 22:14 DC 12/22/20 20:35 Divalproex Sodium (Depakote Er) 500 mg QHS PO 12/23/20 21:00 Current Medications Medications (Trade) Dose Ordered Sig/Cathryn Route PRN Reason Start Time Stop Time Status Last Admin Dose Admin Divalproex Sodium (Depakote Er) 1,000 mg QHS PO 12/22/20 21:00 12/22/20 22:14 DC 12/22/20 20:35 I have reviewed the current psychotropics carefully including drug interactions. Risk benefit ratio favors no change other than as noted in my dictated progress note. Diagnosis: Problems: (1) Anxiety disorder, unspecified (2) Major depressive disorder with psychotic features (3) Mild cognitive impairment (4) Bipolar disorder, current episode mixed, severe, with psychotic features ERON MEDRANO MD Dec 23, 2020 07:26
--- NOTE | 2020-12-23 07:41 | PDOC ---
Exam Note: Carlos Note: This note is a late entry for 12/22/2020overs elements not covered in my initial note. Subjective: The patient was seen on telehealth rounds in the evening of 12/22/2020 due to COVID-19 exposure on the unit with Glendy RUTH, discussed and reviewed the chart. She slept for 7-1/2 hours previous night. Overall the patient has been more verbal, interactive, coming out to the dining room for meals. Appetite is somewhat better. Review of Systems: No CV, , pulmonary, eye, ENT system symptoms on review. Mental Status Exam: The patient is oriented to herself and situation. She was seen individually. She was quite verbal, open and forthcoming, pleasant, less anxious. Speech has some latency coherent. Abstraction fair. Computation impaired. Language function intact. Attention span improved. Mood and affect somewhat withdrawn. No overt movements noted. No suicidal or homicidal ideation. Laboratory Data: Reviewed. Impression: Bipolar disorder mixed episode with possible psychotic features. Anxiety disorder unspecified. Impulse control disorder unspecified. Plan: No change from initial note. Valproic acid level is subtherapeutic at 18. We will increase Depakote ER to 1 g p.o. h.s. She did receive this single dosage tonight but going back tomorrow night we will drop it back to 500 mg p.o. h.s. and get another set of labs and valproic acid level on 500 mg dosage before we increase it to 1000 mg. Initially I thought we could increase it more rapidly but after considering that she is showing gradual improving I think we can slow the rate of increase but still aim to get a therapeutic acid level. Assessment: Vital Signs/I&O: Vital Signs Date Time Temp Pulse Resp B/P (MAP) Pulse Ox O2 Delivery O2 Flow Rate FiO2 12/23/20 05:45 97.8 68 16 135/79 (97) 98 Room Air I & O 12/22/20 12/22/20 12/23/20 15:00 23:00 07:00 Intake Total 600 ml 360 ml Balance 600 ml 360 ml Current Medications: Meds: Current Medications Medications (Trade) Dose Ordered Sig/Cathryn Route PRN Reason Start Time Stop Time Status Last Admin Dose Admin Albuterol Sulfate (Ventolin) 90 mg PRN QID PRN IH wheezing 12/11/20 22:00 UNV Alprazolam (Xanax) 0.5 mg PRN TID PRN PO ANXIETY / AGITATION 12/11/20 22:00 12/11/20 22:45 DC Benztropine Mesylate (Cogentin) 0.5 mg HS PO 12/12/20 21:00 12/11/20 22:45 DC Diphenhydramine HCl (Benadryl) 25 mg PRN Q4HRS PRN PO ANXIETY / AGITATION 12/11/20 22:00 Olanzapine (ZyPREXA ZYDIS) 2.5 mg PRN Q2HRS PRN PO ANXIETY / AGITATION 12/11/20 22:00 12/12/20 05:58 Trazodone HCl (Desyrel) 50 mg PRN QHS PRN PO INSOMNIA, MAY REPEAT X2 12/11/20 22:00 12/11/20 23:04 Fluticasone Propionate (Flonase) 2 spray PRN DAILY PRN NS ALLERGIES 12/11/20 22:30 12/21/20 02:30 Non-Formulary Medication (Ginkgo Biloba [place] Extract (Ginkgo Biloba)) 30 mg DAILY PO 12/12/20 09:00 UNV Pyridoxine HCl (Vitamin B-6) 50 mg DAILY PO 12/12/20 09:00 12/22/20 08:02 Vitamin E (Vitamin E) 200 unit DAILY PO 12/12/20 09:00 12/22/20 08:02 Albuterol Sulfate (Ventolin Hfa Inhaler) 2 puff PRN QID PRN INH SHORTNESS OF BREATH 12/11/20 22:30 12/21/20 02:30 Alprazolam (Xanax) 0.5 mg TID PO 12/11/20 22:45 12/22/20 20:35 Benztropine Mesylate (Cogentin) 0.5 mg HS PO 12/11/20 22:45 12/22/20 20:35 Acetaminophen (Tylenol) 650 mg PRN Q6HRS PRN PO MILD PAIN / TEMP > 100.3'F 12/11/20 23:15 Multi-Ingredient Ointment (Analgesic [place]) 1 dinora PRN QID PRN TP MUSCLE PAIN 12/11/20 23:15 Al Hydroxide/Mg Hydroxide (Mylanta Plus Xs) 15 ml PRN AFTMEALHC PRN PO DYSPEPSIA 12/11/20 23:15 Magnesium Hydroxide (Milk Of Magnesia) 2,400 mg PRN QHS PRN PO CONSTIPATION 2ND CHOICE 12/11/20 23:15 Pantoprazole Sodium (Protonix) 40 mg DAILYAC PO 12/13/20 07:30 12/22/20 08:02 Olanzapine (ZyPREXA) 5 mg HS PO 12/14/20 21:00 12/22/20 20:35 Duloxetine HCl (Cymbalta) 30 mg DAILY PO 12/15/20 09:00 12/15/20 18:47 DC 12/15/20 08:01 Divalproex Sodium (Depakote Sprinkles) 250 mg HS PO 12/18/20 21:00 12/18/20 11:37 DC Divalproex Sodium (Depakote Er) 250 mg QHS PO 12/18/20 21:00 12/21/20 17:00 DC 12/20/20 20:01 Polyethylene Glycol (miraLAX) 17 gm PRN DAILY PRN PO CONSTIPATION 1ST CHOICE 12/21/20 15:45 12/21/20 15:51 Divalproex Sodium (Depakote Er) 500 mg QHS PO 12/21/20 21:00 12/22/20 18:07 DC 12/21/20 19:57 Divalproex Sodium (Depakote Er) 1,000 mg QHS PO 12/22/20 21:00 12/22/20 22:14 DC 12/22/20 20:35 Divalproex Sodium (Depakote Er) 500 mg QHS PO 12/23/20 21:00 Current Medications Medications (Trade) Dose Ordered Sig/Cathryn Route PRN Reason Start Time Stop Time Status Last Admin Dose Admin Divalproex Sodium (Depakote Er) 1,000 mg QHS PO 12/22/20 21:00 12/22/20 22:14 DC 12/22/20 20:35 I have reviewed the current psychotropics carefully including drug interactions. Risk benefit ratio favors no change other than as noted in my dictated progress note. Diagnosis: Problems: (1) Anxiety disorder, unspecified (2) Major depressive disorder with psychotic features (3) Mild cognitive impairment (4) Bipolar disorder, current episode mixed, severe, with psychotic features ERON MEDRANO MD Dec 23, 2020 07:41
[2020-12-23] MEDS: VITAMIN E 200 UNIT CAPSULE. PO SCH (08:29)
[2020-12-23] MEDS: ALPRAZolam 0.5 MG TABLET PO SCH ×3 (08:29→20:22)
[2020-12-23] MEDS: PYRIDOXINE 50 MG TABLET. PO SCH (08:29)
[2020-12-23] MEDS: PANTOPRAZOLE 40 MG TABLET. PO SCH (08:30)
--- NOTE | 2020-12-23 09:48 | NUR ---
Nurse note Patient alert and organized to self. Patient is compliant with medication and redirection. Patient must be encouraged to come in for meals, mostly withdraws to room. No abnormal movement when approached by staff or peers. Not as anxious, . Ambulates in hallway patient said she does it for exercise.
[2020-12-23 16:00] VITALS: BP 127/82
[2020-12-23] MEDS: DIVALPROEX ER 500 MG TAB.ER.24H PO SCH (20:22)
[2020-12-23] MEDS: BENZTROPINE MESYLATE 0.5 MG TABLET PO SCH (20:23)
[2020-12-23] MEDS: OLANZapine 2.5 MG TABLET PO SCH (20:23)
--- NOTE | 2020-12-23 21:52 | PDOC ---
Exam Note: Carlos Note: Please also refer to the separate dictated note~for this date of service dictated separately.~Patient seen individually. Discussed the patient with Nursing staff reviewed the chart.~Reviewed interim history and current functioning. Reviewed vital signs,~Labs/ Radiology~and current medications noted below. Continue current treatment with the changes noted in the dictated addendum note Assessment: Vital Signs/I&O: Vital Signs Date Time Temp Pulse Resp B/P (MAP) Pulse Ox O2 Delivery O2 Flow Rate FiO2 12/23/20 16:00 97.2 82 19 127/82 (97) 99 12/23/20 05:45 Room Air I & O 12/22/20 12/22/20 12/23/20 15:00 23:00 07:00 Intake Total 600 ml 360 ml Balance 600 ml 360 ml Current Medications: Meds: Current Medications Medications (Trade) Dose Ordered Sig/Cathryn Route PRN Reason Start Time Stop Time Status Last Admin Dose Admin Albuterol Sulfate (Ventolin) 90 mg PRN QID PRN IH wheezing 12/11/20 22:00 UNV Alprazolam (Xanax) 0.5 mg PRN TID PRN PO ANXIETY / AGITATION 12/11/20 22:00 12/11/20 22:45 DC Benztropine Mesylate (Cogentin) 0.5 mg HS PO 12/12/20 21:00 12/11/20 22:45 DC Diphenhydramine HCl (Benadryl) 25 mg PRN Q4HRS PRN PO ANXIETY / AGITATION 12/11/20 22:00 Olanzapine (ZyPREXA ZYDIS) 2.5 mg PRN Q2HRS PRN PO ANXIETY / AGITATION 12/11/20 22:00 12/12/20 05:58 Trazodone HCl (Desyrel) 50 mg PRN QHS PRN PO INSOMNIA, MAY REPEAT X2 12/11/20 22:00 12/11/20 23:04 Fluticasone Propionate (Flonase) 2 spray PRN DAILY PRN NS ALLERGIES 12/11/20 22:30 12/21/20 02:30 Non-Formulary Medication (Ginkgo Biloba [place] Extract (Ginkgo Biloba)) 30 mg DAILY PO 12/12/20 09:00 UNV Pyridoxine HCl (Vitamin B-6) 50 mg DAILY PO 12/12/20 09:00 12/23/20 08:29 Vitamin E (Vitamin E) 200 unit DAILY PO 12/12/20 09:00 12/23/20 08:29 Albuterol Sulfate (Ventolin Hfa Inhaler) 2 puff PRN QID PRN INH SHORTNESS OF BREATH 12/11/20 22:30 12/21/20 02:30 Alprazolam (Xanax) 0.5 mg TID PO 12/11/20 22:45 12/23/20 20:22 Benztropine Mesylate (Cogentin) 0.5 mg HS PO 12/11/20 22:45 12/23/20 20:23 Acetaminophen (Tylenol) 650 mg PRN Q6HRS PRN PO MILD PAIN / TEMP > 100.3'F 12/11/20 23:15 Multi-Ingredient Ointment (Analgesic [place]) 1 dinora PRN QID PRN TP MUSCLE PAIN 12/11/20 23:15 Al Hydroxide/Mg Hydroxide (Mylanta Plus Xs) 15 ml PRN AFTMEALHC PRN PO DYSPEPSIA 12/11/20 23:15 Magnesium Hydroxide (Milk Of Magnesia) 2,400 mg PRN QHS PRN PO CONSTIPATION 2ND CHOICE 12/11/20 23:15 Pantoprazole Sodium (Protonix) 40 mg DAILYAC PO 12/13/20 07:30 12/23/20 08:30 Olanzapine (ZyPREXA) 5 mg HS PO 12/14/20 21:00 12/23/20 20:23 Duloxetine HCl (Cymbalta) 30 mg DAILY PO 12/15/20 09:00 12/15/20 18:47 DC 12/15/20 08:01 Divalproex Sodium (Depakote Sprinkles) 250 mg HS PO 12/18/20 21:00 12/18/20 11:37 DC Divalproex Sodium (Depakote Er) 250 mg QHS PO 12/18/20 21:00 12/21/20 17:00 DC 12/20/20 20:01 Polyethylene Glycol (miraLAX) 17 gm PRN DAILY PRN PO CONSTIPATION 1ST CHOICE 12/21/20 15:45 12/21/20 15:51 Divalproex Sodium (Depakote Er) 500 mg QHS PO 12/21/20 21:00 12/22/20 18:07 DC 12/21/20 19:57 Divalproex Sodium (Depakote Er) 1,000 mg QHS PO 12/22/20 21:00 12/22/20 22:14 DC 12/22/20 20:35 Divalproex Sodium (Depakote Er) 500 mg QHS PO 12/23/20 21:00 12/23/20 20:22 Current Medications Medications (Trade) Dose Ordered Sig/Cathryn Route PRN Reason Start Time Stop Time Status Last Admin Dose Admin Divalproex Sodium (Depakote Er) 500 mg QHS PO 12/23/20 21:00 12/23/20 20:22 I have reviewed the current psychotropics carefully including drug interactions. Risk benefit ratio favors no change other than as noted in my dictated progress note. Diagnosis: Problems: (1) Anxiety disorder, unspecified (2) Major depressive disorder with psychotic features (3) Mild cognitive impairment (4) Bipolar disorder, current episode mixed, severe, with psychotic features ERON MEDRANO MD Dec 23, 2020 21:52
--- NOTE | 2020-12-23 22:29 | NUR ---
Patient was in her room most of this shift. She was more interactive tonight and did not appear to have a tremor during interaction with this nurse. Patient stated that we are giving her too much food at meals. She also stated that she does not know what day it is, as they all seem the same here. Patient was encouraged to come to day room with peers but she declined. Patient is compliant with medications, tonight she asked what each medication was named and what they are for. She has been cooperative with staff.
[2020-12-24 05:35] VITALS: BP 138/77
--- NOTE | 2020-12-24 06:42 | PDOC ---
Exam Note: Carlos Note: This note is a late entry for 12/23/2020overs elements not covered in my initial note. Subjective: The patient was seen face to face in the evening of 12/23/2020 with Magnolia RUTH, discussed and reviewed the chart. She slept for 7-1/4 hours previous night. I met with her in her room at some length in the evening. Per nursing report, she has not manifested any new behaviors. Abnormal movements have improved as the anxiety is improved. She is coming out of her room more often and interacting with others. We discussed her current psychotropics and that we will be attempting taper of Xanax later once the valproic acid level is therapeutic. Review of Systems: No CV, , pulmonary, eye, ENT system symptoms on review. Mental Status Exam: The patient is reasonably oriented. Speech is coherent. Abstraction fair. She is anxious. Computation impaired. Language function intact. Attention span improved. Mood and affect somewhat withdrawn. No suicidal or homicidal ideation. Laboratory Data: Reviewed. Impression: Bipolar disorder mixed episode with possible psychotic features. Anxiety disorder unspecified. Impulse control disorder unspecified. Plan: No change from initial note. Assessment: Vital Signs/I&O: Vital Signs Date Time Temp Pulse Resp B/P (MAP) Pulse Ox O2 Delivery O2 Flow Rate FiO2 12/24/20 05:35 98.2 85 18 138/77 (97) 96 Room Air I & O 0 12/23/20 12/23/20 12/24/20 15:00 23:00 07:00 Intake Total 540 ml 360 ml Balance 540 ml 360 ml Current Medications: Meds: Current Medications Medications (Trade) Dose Ordered Sig/Cathryn Route PRN Reason Start Time Stop Time Status Last Admin Dose Admin Albuterol Sulfate (Ventolin) 90 mg PRN QID PRN IH wheezing 12/11/20 22:00 UNV Alprazolam (Xanax) 0.5 mg PRN TID PRN PO ANXIETY / AGITATION 12/11/20 22:00 12/11/20 22:45 DC Benztropine Mesylate (Cogentin) 0.5 mg HS PO 12/12/20 21:00 12/11/20 22:45 DC Diphenhydramine HCl (Benadryl) 25 mg PRN Q4HRS PRN PO ANXIETY / AGITATION 12/11/20 22:00 Olanzapine (ZyPREXA ZYDIS) 2.5 mg PRN Q2HRS PRN PO ANXIETY / AGITATION 12/11/20 22:00 12/12/20 05:58 Trazodone HCl (Desyrel) 50 mg PRN QHS PRN PO INSOMNIA, MAY REPEAT X2 12/11/20 22:00 12/11/20 23:04 Fluticasone Propionate (Flonase) 2 spray PRN DAILY PRN NS ALLERGIES 12/11/20 22:30 12/21/20 02:30 Non-Formulary Medication (Ginkgo Biloba [place] Extract (Ginkgo Biloba)) 30 mg DAILY PO 12/12/20 09:00 UNV Pyridoxine HCl (Vitamin B-6) 50 mg DAILY PO 12/12/20 09:00 12/23/20 08:29 Vitamin E (Vitamin E) 200 unit DAILY PO 12/12/20 09:00 12/23/20 08:29 Albuterol Sulfate (Ventolin Hfa Inhaler) 2 puff PRN QID PRN INH SHORTNESS OF BREATH 12/11/20 22:30 12/21/20 02:30 Alprazolam (Xanax) 0.5 mg TID PO 12/11/20 22:45 12/23/20 20:22 Benztropine Mesylate (Cogentin) 0.5 mg HS PO 12/11/20 22:45 12/23/20 20:23 Acetaminophen (Tylenol) 650 mg PRN Q6HRS PRN PO MILD PAIN / TEMP > 100.3'F 12/11/20 23:15 Multi-Ingredient Ointment (Analgesic [place]) 1 dinora PRN QID PRN TP MUSCLE PAIN 12/11/20 23:15 Al Hydroxide/Mg Hydroxide (Mylanta Plus Xs) 15 ml PRN AFTMEALHC PRN PO DYSPEPSIA 12/11/20 23:15 Magnesium Hydroxide (Milk Of Magnesia) 2,400 mg PRN QHS PRN PO CONSTIPATION 2ND CHOICE 12/11/20 23:15 Pantoprazole Sodium (Protonix) 40 mg DAILYAC PO 12/13/20 07:30 12/23/20 08:30 Olanzapine (ZyPREXA) 5 mg HS PO 12/14/20 21:00 12/23/20 20:23 Duloxetine HCl (Cymbalta) 30 mg DAILY PO 12/15/20 09:00 12/15/20 18:47 DC 12/15/20 08:01 Divalproex Sodium (Depakote Sprinkles) 250 mg HS PO 12/18/20 21:00 12/18/20 11:37 DC Divalproex Sodium (Depakote Er) 250 mg QHS PO 12/18/20 21:00 12/21/20 17:00 DC 12/20/20 20:01 Polyethylene Glycol (miraLAX) 17 gm PRN DAILY PRN PO CONSTIPATION 1ST CHOICE 12/21/20 15:45 12/21/20 15:51 Divalproex Sodium (Depakote Er) 500 mg QHS PO 12/21/20 21:00 12/22/20 18:07 DC 12/21/20 19:57 Divalproex Sodium (Depakote Er) 1,000 mg QHS PO 12/22/20 21:00 12/22/20 22:14 DC 12/22/20 20:35 Divalproex Sodium (Depakote Er) 500 mg QHS PO 12/23/20 21:00 12/23/20 20:22 Current Medications Medications (Trade) Dose Ordered Sig/Cathryn Route PRN Reason Start Time Stop Time Status Last Admin Dose Admin Divalproex Sodium (Depakote Er) 500 mg QHS PO 12/23/20 21:00 12/23/20 20:22 I have reviewed the current psychotropics carefully including drug interactions. Risk benefit ratio favors no change other than as noted in my dictated progress note. Diagnosis: Problems: (1) Anxiety disorder, unspecified (2) Major depressive disorder with psychotic features (3) Mild cognitive impairment (4) Bipolar disorder, current episode mixed, severe, with psychotic features ERON MEDRANO MD Dec 24, 2020 06:42
[2020-12-24] MEDS: PYRIDOXINE 50 MG TABLET. PO SCH (08:52)
[2020-12-24] MEDS: ALPRAZolam 0.5 MG TABLET PO SCH ×3 (08:52→20:26)
[2020-12-24] MEDS: PANTOPRAZOLE 40 MG TABLET. PO SCH (08:53)
[2020-12-24] MEDS: VITAMIN E 200 UNIT CAPSULE. PO SCH (08:53)
--- NOTE | 2020-12-24 10:40 | NUR ---
RADHA received call from uSe, pt dtr/CHEY, who wanted to follow up on a discharge plan for pt. RADHA explained that she initially had pt scheduled for Tuesday; however, with how well pt is doing , she may be able to discharge sooner. Both parties agreed to Tuesday discharge but can bring it up in treatment team to make sure the psychiatrist agrees with that date. Sue will plan to make all follow-up appointments and will be able to give SW the appointments scheduled. Sue did question if pt would need to continue lowering the Xanax and RADHA recommended she ask the psychiatrist that question. If he agrees with that pt may not discharge Tuesday as a few days of observation may be warranted to ensure she has no side effects from the change. Sue reports that pt felt her tremors have lessened and just wandered if tapering the Xanax more would help. RADHA reiterated treatment team for tomorrow and will work with Sue on finalizing all plans for discharge.
[2020-12-24 15:59] VITALS: BP 142/83
--- NOTE | 2020-12-24 17:09 | NUR ---
nsg note; juana has been calm, cooperative and med compliant today. she comes to the dining room for meals and ate more today. she does retreat to her room between meals, requesting and given paper and a felt tip pen. she has been awake and alert, with no napping today. she reported no anxiety and no tremors were noted. she refused the afternoon scheduled dose of xanax- dr dimas notified and ordered a tapering off of the scheduled xanax.
[2020-12-24] MEDS: DIVALPROEX ER 500 MG TAB.ER.24H PO SCH (20:27)
[2020-12-24] MEDS: OLANZapine 2.5 MG TABLET PO SCH (20:27)
[2020-12-24] MEDS: BENZTROPINE MESYLATE 0.5 MG TABLET PO SCH (20:27)
--- NOTE | 2020-12-24 21:52 | NUR ---
Patient had several phone calls from her family members this evening. She is in pleasant spirits, calm and cooperative. Patient stated she has been enjoying playing cards in her room. No involuntary movements noted this shift. Patient appears less anxious and stated she feels "much better".
--- NOTE | 2020-12-24 21:53 | PDOC ---
Exam Note: Carlos Note: Please also refer to the separate dictated note~for this date of service dictated separately.~Patient seen individually. Discussed the patient with Nursing staff reviewed the chart.~Reviewed interim history and current functioning. Reviewed vital signs,~Labs/ Radiology~and current medications noted below. Continue current treatment with the changes noted in the dictated addendum note Assessment: Vital Signs/I&O: Vital Signs Date Time Temp Pulse Resp B/P (MAP) Pulse Ox O2 Delivery O2 Flow Rate FiO2 12/24/20 15:59 97.8 76 16 142/83 (102) 96 12/24/20 05:35 Room Air I & O 12/23/20 12/23/20 12/24/20 15:00 23:00 07:00 Intake Total 540 ml 360 ml Balance 540 ml 360 ml Labs: Laboratory Tests Test 12/24/20 10:50 SARS-CoV-2 (PCR) Negative (NEGATIVE) Current Medications: Meds: Laboratory Tests Test 12/24/20 10:50 Coronavirus (COVID-19)(PCR) Negative Current Medications Medications (Trade) Dose Ordered Sig/Cathryn Route PRN Reason Start Time Stop Time Status Last Admin Dose Admin Albuterol Sulfate (Ventolin) 90 mg PRN QID PRN IH wheezing 12/11/20 22:00 UNV Alprazolam (Xanax) 0.5 mg PRN TID PRN PO ANXIETY / AGITATION 12/11/20 22:00 12/11/20 22:45 DC Benztropine Mesylate (Cogentin) 0.5 mg HS PO 12/12/20 21:00 12/11/20 22:45 DC Diphenhydramine HCl (Benadryl) 25 mg PRN Q4HRS PRN PO ANXIETY / AGITATION 12/11/20 22:00 Olanzapine (ZyPREXA ZYDIS) 2.5 mg PRN Q2HRS PRN PO ANXIETY / AGITATION 12/11/20 22:00 12/12/20 05:58 Trazodone HCl (Desyrel) 50 mg PRN QHS PRN PO INSOMNIA, MAY REPEAT X2 12/11/20 22:00 12/11/20 23:04 Fluticasone Propionate (Flonase) 2 spray PRN DAILY PRN NS ALLERGIES 12/11/20 22:30 12/21/20 02:30 Non-Formulary Medication (Ginkgo Biloba [place] Extract (Ginkgo Biloba)) 30 mg DAILY PO 12/12/20 09:00 UNV Pyridoxine HCl (Vitamin B-6) 50 mg DAILY PO 12/12/20 09:00 12/24/20 08:52 Vitamin E (Vitamin E) 200 unit DAILY PO 12/12/20 09:00 12/24/20 08:53 Albuterol Sulfate (Ventolin Hfa Inhaler) 2 puff PRN QID PRN INH SHORTNESS OF BREATH 12/11/20 22:30 12/21/20 02:30 Alprazolam (Xanax) 0.5 mg TID PO 12/11/20 22:45 12/24/20 16:53 DC 12/24/20 08:52 Benztropine Mesylate (Cogentin) 0.5 mg HS PO 12/11/20 22:45 12/24/20 20:27 Acetaminophen (Tylenol) 650 mg PRN Q6HRS PRN PO MILD PAIN / TEMP > 100.3'F 12/11/20 23:15 Multi-Ingredient Ointment (Analgesic [place]) 1 dinora PRN QID PRN TP MUSCLE PAIN 12/11/20 23:15 Al Hydroxide/Mg Hydroxide (Mylanta Plus Xs) 15 ml PRN AFTMEALHC PRN PO DYSPEPSIA 12/11/20 23:15 Magnesium Hydroxide (Milk Of Magnesia) 2,400 mg PRN QHS PRN PO CONSTIPATION 2ND CHOICE 12/11/20 23:15 Pantoprazole Sodium (Protonix) 40 mg DAILYAC PO 12/13/20 07:30 12/24/20 08:53 Olanzapine (ZyPREXA) 5 mg HS PO 12/14/20 21:00 12/24/20 20:27 Duloxetine HCl (Cymbalta) 30 mg DAILY PO 12/15/20 09:00 12/15/20 18:47 DC 12/15/20 08:01 Divalproex Sodium (Depakote Sprinkles) 250 mg HS PO 12/18/20 21:00 12/18/20 11:37 DC Divalproex Sodium (Depakote Er) 250 mg QHS PO 12/18/20 21:00 12/21/20 17:00 DC 12/20/20 20:01 Polyethylene Glycol (miraLAX) 17 gm PRN DAILY PRN PO CONSTIPATION 1ST CHOICE 12/21/20 15:45 12/21/20 15:51 Divalproex Sodium (Depakote Er) 500 mg QHS PO 12/21/20 21:00 12/22/20 18:07 DC 12/21/20 19:57 Divalproex Sodium (Depakote Er) 1,000 mg QHS PO 12/22/20 21:00 12/22/20 22:14 DC 12/22/20 20:35 Divalproex Sodium (Depakote Er) 500 mg QHS PO 12/23/20 21:00 12/24/20 20:27 Alprazolam (Xanax) 0.5 mg BID PO 12/24/20 21:00 12/25/20 22:00 12/24/20 20:26 Alprazolam (Xanax) 0.5 mg DAILY PO 12/26/20 09:00 12/27/20 10:00 Alprazolam (Xanax) 0.5 mg PRN Q8HRS PRN PO ANXIETY / AGITATION 12/27/20 10:00 Current Medications Medications (Trade) Dose Ordered Sig/Cathryn Route PRN Reason Start Time Stop Time Status Last Admin Dose Admin Alprazolam (Xanax) 0.5 mg BID PO 12/24/20 21:00 12/25/20 22:00 12/24/20 20:26 I have reviewed the current psychotropics carefully including drug interactions. Risk benefit ratio favors no change other than as noted in my dictated progress note. Diagnosis: Problems: (1) Anxiety disorder, unspecified (2) Major depressive disorder with psychotic features (3) Mild cognitive impairment (4) Bipolar disorder, current episode mixed, severe, with psychotic features ERON MEDRANO MD Dec 24, 2020 21:53
[2020-12-25 06:07] LABS: BASO % 1 % (0-3); EOS # 0.1 x10^3/uL (0.0-0.7); EOS % 1 % (0-3); HEMATOCRIT 39.6 % (36.0-47.0); HEMOGLOBIN 13.6 g/dL (12.0-15.5); LYMPH # 2.4 x10^3/uL (1.0-4.8); LYMPH % 39 % (24-48); MEAN CORPUSCULAR HEMOGLOBIN 31 pg (25-35); MEAN CORPUSCULAR HGB CONC 34 g/dL (31-37); MEAN CORPUSCULAR VOLUME 92 fL (79-100); MONO # 0.4 x10^3/uL (0.0-1.1); MONO % 7 % (0-9); NEUT # 3.3 x10^3uL (1.8-7.7); NEUT % 53 % (31-73); PLATELET COUNT 275 x10^3/uL (140-400); RED BLOOD COUNT 4.33 x10^6/uL (3.50-5.40); RED CELL DISTRIBUTION WIDTH 13.3 % (11.5-14.5); WHITE BLOOD COUNT 6.3 x10^3/uL (4.0-11.0)
[2020-12-25 06:19] LABS: ALBUMIN 3.2 g/dL (3.4-5.0); ALBUMIN/GLOBULIN RATIO 1.1 (1.0-1.7); ALK PHOS 77 U/L (46-116); ALT (SGPT) 33 U/L (14-59); ANION GAP 7 (6-14); AST (SGOT) 16 U/L (15-37); BLOOD UREA NITROGEN 20 mg/dL (7-20); BUN/CREATININE RATIO 25 (6-20); CALCIUM 8.8 mg/dL (8.5-10.1); CARBON DIOXIDE 32 mmol/L (21-32); CHLORIDE 107 mmol/L (98-107); CREATININE 0.8 mg/dL (0.6-1.0); GFR 70.5; GLUCOSE 80 mg/dL (70-99); POTASSIUM 4.2 mmol/L (3.5-5.1); SODIUM 146 mmol/L (136-145); TOTAL BILIRUBIN 0.8 mg/dL (0.2-1.0); TOTAL PROTEIN 6.1 g/dL (6.4-8.2)
[2020-12-25 06:21] LABS: VAL ACID 63 mcg/mL (50-100)
[2020-12-25 06:47] VITALS: BP 113/47
[2020-12-25] MEDS: PYRIDOXINE 50 MG TABLET. PO SCH (08:13)
[2020-12-25] MEDS: PANTOPRAZOLE 40 MG TABLET. PO SCH (08:14)
[2020-12-25] MEDS: VITAMIN E 200 UNIT CAPSULE. PO SCH (08:14)
[2020-12-25] MEDS: ALPRAZolam 0.5 MG TABLET PO SCH ×2 (08:15→20:24)
--- NOTE | 2020-12-25 12:02 | NUR ---
WEEKLY ACTIVITY THERAPY NOTE Date of Admission: 12/11/20 Date of AT Assessment: 12/12 Precipitating behaviors that initiated intake and admission:Pt having manic episodes, paranoid, delusional, has had multiple losses over the last few years of family members. Has had decreased appetite, and not sleeping. Daughter states this began 3 weeks ago and that she and her aunt moved in with the patient. Goal aimed: increase stress management and relaxation skills Initial Goal: Pt will participate in at least five group Activity Therapy sessions per week Weekly progress towards goal: did not achieve, 1/5 Group participation level: 1 min Weekly highlights: patio time Tuesday afternoon Behaviors observed: withdrawn to room, limited interest in groups Plan: no change to goal Beneficial adaptations: encouragement, education
--- NOTE | 2020-12-25 15:01 | NUR ---
nsg note; no s/s anxiety or tremors noted this am. juana is calm and cooperative. she refused her am dose of xanax stating that it makes her too sleepy. dr dimas aware. she did take the rest of her am meds. she is eating at least 50% of her meals. she stays in her room between meals, playing cards or writing.
[2020-12-25 15:44] VITALS: BP 146/76
--- NOTE | 2020-12-25 16:53 | NUR ---
Treatment team update: Pt dtr, Sue, participated in tx team via phone. Pt is eating 50% of meals and sleeping on average 7.5 hours per night. Pt is medication compliant and was able to note that she refused the Xanax stating that it just made her more tired and she did not wish to take it. Pt is withdrawn to her room but pleasant and has been noted to be doing yoga poses in her room. Pt has less anxiety noted and decreased tremors. Pt dtr reports feeling like the anxiety is still present; however, much better compared to admission. Pt dtr has scheduled appointments for pt and discharge at this time is scheduled for Tuesday.
--- NOTE | 2020-12-25 17:00 | TX PLAN ---
Interdisciplinary Tx Plan Admission Information Dec 11, 2020 at 20:18 Legal Status (on Admission): Voluntary DPOA/Guardian Name: Sue Chapman Contact Verified Code Status: Full Code Allergies: Coded Allergies: peanut (Verified Allergy, Unknown, 12/12/20) quetiapine (Verified Adverse Reaction, Severe, 12/11/20) EPS symptoms Diagnoses Primary Diagnosis: MDD Reasons for Admission: Delusions, Agitated, Sig. Change Sleep, Confusion/Disoriented Problem in Patient's Words: Concerns of pt being Bipolar and not on the right medication. Additional Admission Comments: According to the intake, pt has insomnia and agitation, psychotic expressions of self harm,delusional (thinks people are trying to kill her), depressed, poor intake of meals Problems Active Problems: withdrawn poor sleep pattern hopeless Inactive Problems: medication management Pt Strengths/Limitations Ability for [place]: Fair Cognitive Functioning/Ability: Fair Communication Skills/Ability: Fair Financial Resources: Fair Insight/Judgement: Poor Intellectual Ability: Fair Physical Health: Fair Social Skills: Fair Stability in Family: Good Stability in School/Work: Poor Verbal Skills: Fair Discharge Criteria Discharge Criteria: Able meet basic life need, No need for close observ., Adequate arrangements @DC, Adequate self-care, Improved behavior, Improved mood/thought Preliminary Discharge Plan Preliminary DC Plan: Current Living Arrange. Special Precautions Fall Risk: Low Initial D/C Plan Plan to return home with community services Identified Discharge Needs: Mental health services Currently Utilized Resources Currently Utilized Resources/P: Primary Care Physician Referrals Community Resources: Psychiatry Case Management Counseling Identified Problems/Hx/Goals Objectives/Short-Term Goals Short Term Goals: Dec. Hallucination/Delus, Medication Stabilization, Monitor Med Effects Short Term Goals in Patient's: N/A Interventions/Frequency Staff Interventions/Frequency&: Psychiatrist to assess pt at least 3x per week for medication management. Social Work to assess pt at least 2x per week to identify barriers to care and finalize discharge planning. Nursing to assess medication effects, behavior modification and completion of 15 minute checks. Encourage participation in group activities (if applicable) or 1:1 engagement based of activity dept goals. 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 Pt is eating 50% of meals and sleeping on average 7.5 hours per night. Pt is medication compliant and was able to note that she refused the Xanax stating that it just made her more tired and she did not wish to take it. Pt is withdrawn to her room but pleasant and has been noted to be doing yoga poses in her room. Pt has less anxiety noted and decreased tremors. Pt dtr reports feeling like the anxiety is still present; however, much better compared to admission. Pt dtr has scheduled appointments for pt and discharge at this time is scheduled for Tuesday. JIM MIGUEL Dec 25, 2020 17:00
[2020-12-25] MEDS: DIVALPROEX ER 500 MG TAB.ER.24H PO SCH (20:22)
[2020-12-25] MEDS: OLANZapine 2.5 MG TABLET PO SCH (20:22)
[2020-12-25] MEDS: BENZTROPINE MESYLATE 0.5 MG TABLET PO SCH (20:23)
--- NOTE | 2020-12-25 22:11 | PDOC ---
Exam Note: Carlos Note: Please also refer to the separate dictated note~for this date of service dictated separately.~Patient seen individually. Discussed the patient with Nursing staff reviewed the chart.~Reviewed interim history and current functioning. Reviewed vital signs,~Labs/ Radiology~and current medications noted below. Continue current treatment with the changes noted in the dictated addendum note Assessment: Vital Signs/I&O: Vital Signs Date Time Temp Pulse Resp B/P (MAP) Pulse Ox O2 Delivery O2 Flow Rate FiO2 12/25/20 15:44 97.6 77 17 146/76 (99) 98 12/25/20 06:47 Room Air I & O 12/24/20 12/24/20 12/25/20 15:00 23:00 07:00 Intake Total 320 ml 360 ml Balance 320 ml 360 ml Labs: Laboratory Tests Test 12/25/20 05:55 White Blood Count 6.3 x10^3/uL (4.0-11.0) Red Blood Count 4.33 x10^6/uL (3.50-5.40) Hemoglobin 13.6 g/dL (12.0-15.5) Hematocrit 39.6 % (36.0-47.0) Mean Corpuscular Volume 92 fL (79-100) Mean Corpuscular Hemoglobin 31 pg (25-35) Mean Corpuscular Hemoglobin Concent 34 g/dL (31-37) Red Cell Distribution Width 13.3 % (11.5-14.5) Platelet Count 275 x10^3/uL (140-400) Neutrophils (%) (Auto) 53 % (31-73) Lymphocytes (%) (Auto) 39 % (24-48) Monocytes (%) (Auto) 7 % (0-9) Eosinophils (%) (Auto) 1 % (0-3) Basophils (%) (Auto) 1 % (0-3) Neutrophils # (Auto) 3.3 x10^3uL (1.8-7.7) Lymphocytes # (Auto) 2.4 x10^3/uL (1.0-4.8) Monocytes # (Auto) 0.4 x10^3/uL (0.0-1.1) Eosinophils # (Auto) 0.1 x10^3/uL (0.0-0.7) Basophils # (Auto) 0.0 x10^3/uL (0.0-0.2) Sodium Level 146 mmol/L (136-145) H Potassium Level 4.2 mmol/L (3.5-5.1) Chloride Level 107 mmol/L (98-107) Carbon Dioxide Level 32 mmol/L (21-32) Anion Gap 7 (6-14) Blood Urea Nitrogen 20 mg/dL (7-20) Creatinine 0.8 mg/dL (0.6-1.0) Estimated GFR (Cockcroft-Gault) 70.5 BUN/Creatinine Ratio 25 (6-20) H Glucose Level 80 mg/dL (70-99) Calcium Level 8.8 mg/dL (8.5-10.1) Total Bilirubin 0.8 mg/dL (0.2-1.0) Aspartate Amino Transferase (AST) 16 U/L (15-37) Alanine Aminotransferase (ALT) 33 U/L (14-59) Alkaline Phosphatase 77 U/L (46-116) Total Protein 6.1 g/dL (6.4-8.2) L Albumin 3.2 g/dL (3.4-5.0) L Albumin/Globulin Ratio 1.1 (1.0-1.7) Valproic Acid Level 63 mcg/mL (50-100) Valproic Acid Last Dose Date 12/24/2020 Valproic Acid Last Dose Time 2100 Current Medications: Meds: Laboratory Tests Test 12/25/20 05:55 White Blood Count 6.3 x10^3/uL Red Blood Count 4.33 x10^6/uL Hemoglobin 13.6 g/dL Hematocrit 39.6 % Mean Corpuscular Volume 92 fL Mean Corpuscular Hemoglobin 31 pg Mean Corpuscular Hemoglobin Concent 34 g/dL Red Cell Distribution Width 13.3 % Platelet Count 275 x10^3/uL Neutrophils (%) (Auto) 53 % Lymphocytes (%) (Auto) 39 % Monocytes (%) (Auto) 7 % Eosinophils (%) (Auto) 1 % Basophils (%) (Auto) 1 % Neutrophils # (Auto) 3.3 x10^3uL Lymphocytes # (Auto) 2.4 x10^3/uL Monocytes # (Auto) 0.4 x10^3/uL Eosinophils # (Auto) 0.1 x10^3/uL Basophils # (Auto) 0.0 x10^3/uL Sodium Level 146 mmol/L Potassium Level 4.2 mmol/L Chloride Level 107 mmol/L Carbon Dioxide Level 32 mmol/L Anion Gap 7 Blood Urea Nitrogen 20 mg/dL Creatinine 0.8 mg/dL Estimated GFR (Cockcroft-Gault) 70.5 BUN/Creatinine Ratio 25 Glucose Level 80 mg/dL Calcium Level 8.8 mg/dL Total Bilirubin 0.8 mg/dL Aspartate Amino Transf (AST/SGOT) 16 U/L Alanine Aminotransferase (ALT/SGPT) 33 U/L Alkaline Phosphatase 77 U/L Total Protein 6.1 g/dL Albumin 3.2 g/dL Albumin/Globulin Ratio 1.1 Valproic Acid (Depakene) Level 63 mcg/mL Valproic Acid Last Dose Date 12/24/2020 Valproic Acid Last Dose Time 2100 Current Medications Medications (Trade) Dose Ordered Sig/Cathryn Route PRN Reason Start Time Stop Time Status Last Admin Dose Admin Albuterol Sulfate (Ventolin) 90 mg PRN QID PRN IH wheezing 12/11/20 22:00 UNV Alprazolam (Xanax) 0.5 mg PRN TID PRN PO ANXIETY / AGITATION 12/11/20 22:00 12/11/20 22:45 DC Benztropine Mesylate (Cogentin) 0.5 mg HS PO 12/12/20 21:00 12/11/20 22:45 DC Diphenhydramine HCl (Benadryl) 25 mg PRN Q4HRS PRN PO 2nd choice ANXIETY / AGITATION 12/11/20 22:00 Olanzapine (ZyPREXA ZYDIS) 2.5 mg PRN Q2HRS PRN PO ANXIETY / AGITATION 12/11/20 22:00 12/12/20 05:58 Trazodone HCl (Desyrel) 50 mg PRN QHS PRN PO INSOMNIA, MAY REPEAT X2 12/11/20 22:00 12/11/20 23:04 Fluticasone Propionate (Flonase) 2 spray PRN DAILY PRN NS ALLERGIES 12/11/20 22:30 12/21/20 02:30 Non-Formulary Medication (Ginkgo Biloba [place] Extract (Ginkgo Biloba)) 30 mg DAILY PO 12/12/20 09:00 UNV Pyridoxine HCl (Vitamin B-6) 50 mg DAILY PO 12/12/20 09:00 12/25/20 08:13 Vitamin E (Vitamin E) 200 unit DAILY PO 12/12/20 09:00 12/25/20 08:14 Albuterol Sulfate (Ventolin Hfa Inhaler) 2 puff PRN QID PRN INH SHORTNESS OF BREATH 12/11/20 22:30 12/21/20 02:30 Alprazolam (Xanax) 0.5 mg TID PO 12/11/20 22:45 12/24/20 16:53 DC 12/24/20 08:52 Benztropine Mesylate (Cogentin) 0.5 mg HS PO 12/11/20 22:45 12/25/20 20:23 Acetaminophen (Tylenol) 650 mg PRN Q6HRS PRN PO MILD PAIN / TEMP > 100.3'F 12/11/20 23:15 Multi-Ingredient Ointment (Analgesic [place]) 1 dinora PRN QID PRN TP MUSCLE PAIN 12/11/20 23:15 Al Hydroxide/Mg Hydroxide (Mylanta Plus Xs) 15 ml PRN AFTMEALHC PRN PO DYSPEPSIA 12/11/20 23:15 Magnesium Hydroxide (Milk Of Magnesia) 2,400 mg PRN QHS PRN PO CONSTIPATION 2ND CHOICE 12/11/20 23:15 Pantoprazole Sodium (Protonix) 40 mg DAILYAC PO 12/13/20 07:30 12/25/20 08:14 Olanzapine (ZyPREXA) 5 mg HS PO 12/14/20 21:00 12/25/20 20:22 Duloxetine HCl (Cymbalta) 30 mg DAILY PO 12/15/20 09:00 12/15/20 18:47 DC 12/15/20 08:01 Divalproex Sodium (Depakote Sprinkles) 250 mg HS PO 12/18/20 21:00 12/18/20 11:37 DC Divalproex Sodium (Depakote Er) 250 mg QHS PO 12/18/20 21:00 12/21/20 17:00 DC 12/20/20 20:01 Polyethylene Glycol (miraLAX) 17 gm PRN DAILY PRN PO CONSTIPATION 1ST CHOICE 12/21/20 15:45 12/21/20 15:51 Divalproex Sodium (Depakote Er) 500 mg QHS PO 12/21/20 21:00 12/22/20 18:07 DC 12/21/20 19:57 Divalproex Sodium (Depakote Er) 1,000 mg QHS PO 12/22/20 21:00 12/22/20 22:14 DC 12/22/20 20:35 Divalproex Sodium (Depakote Er) 500 mg QHS PO 12/23/20 21:00 12/25/20 20:22 Alprazolam (Xanax) 0.5 mg BID PO 12/24/20 21:00 12/25/20 22:00 DC 12/25/20 20:24 Alprazolam (Xanax) 0.5 mg DAILY PO 12/26/20 09:00 12/27/20 10:00 Alprazolam (Xanax) 0.5 mg PRN Q8HRS PRN PO 1st choice ANXIETY / AGITATION 12/27/20 10:00 I have reviewed the current psychotropics carefully including drug interactions. Risk benefit ratio favors no change other than as noted in my dictated progress note. Diagnosis: Problems: (1) Anxiety disorder, unspecified (2) Major depressive disorder with psychotic features (3) Mild cognitive impairment (4) Bipolar disorder, current episode mixed, severe, with psychotic features ERON MEDRANO MD Dec 25, 2020 22:11
--- NOTE | 2020-12-25 22:41 | NUR ---
Patient was in her room seated on her bed. She asked what kind of medications she was taking, their names and the reasons for them. Nurse provided education about medications and their purpose. Patient is compliant with medications and cooperative with staff. Patients daughter expressed concern in treatment team that patient has not been sleeping well at night. Patient was offered PRN trazodone but declined. Nurse told patient that if she should wake up during the night before 0100 and be unable to sleep she could get the PRN trazodone. Patient has been sleeping well this night, 15 minute checks have been confirming this. Patient does not have any involuntary movements at this time and does not appear anxious.
[2020-12-25] MEDS: traZODone 50 MG TABLET. PO PRN (23:32)
--- NOTE | 2020-12-25 23:33 | NUR ---
Patient came to nurses station and asked for something to help her slep. PRN trazodone given per order for insomnia.
[2020-12-26 06:19] VITALS: BP 123/76
--- NOTE | 2020-12-26 06:39 | PDOC ---
Exam Note: Carlos Note: This note is a late entry for 12/24/2020overs elements not covered in my initial note. Subjective: The patient was seen face to face in the evening of 12/24/2020 with Mary Kay RUTH, discussed and reviewed the chart. She slept for 7 hours previous night. The patient has been more awake, alert, less hyperverbal, less anxious and the involuntary movement seemed to have subsided, almost entirely as her john and anxiety have improved. She is more interactive. She complains of sedation on Xanax 0.5 mg 3 times a day and we will reduce it to one a day for 2 days, then stop it and use Xanax for 0.5 mg 3 times a day for anxiety. Valproic acid level is to be checked on 12/25. Her appetite is better as well. Review of Systems: Positive for some anxiety but improved. No CV, , pulmonary, eye, ENT system symptoms on review. Mental Status Exam: The patient is awake, alert and oriented. She is very verbal and interactive, at times slightly hyperverbal but improved. She is very appreciative of the care and repeatedly stating how she felt I was very kind. Speech is coherent. Abstraction fair. She is anxious. Computation impaired. Language function intact. Attention span improved. Mood and affect still somewhat anxious. No suicidal or homicidal ideation. She is still distractible but improved. Laboratory Data: Reviewed. Impression: Bipolar disorder manic in partial remission. Anxiety disorder unspecified. Plan: No change from initial note. Check valproic acid level morning of 12/25 and then adjust Depakote to reach therapeutic level. Taper the Xanax. Consider stopping Cogentin. Maintain Zyprexa 5 mg h.s. Rest unchanged for now. Assessment: Vital Signs/I&O: Vital Signs Date Time Temp Pulse Resp B/P (MAP) Pulse Ox O2 Delivery O2 Flow Rate FiO2 12/26/20 06:19 97.5 73 18 123/76 (92) 98 Room Air I & O 12/25/20 12/25/20 12/26/20 14:59 22:59 06:59 Intake Total 840 ml 120 ml Balance 840 ml 120 ml Current Medications: Meds: Current Medications Medications (Trade) Dose Ordered Sig/Cathryn Route PRN Reason Start Time Stop Time Status Last Admin Dose Admin Albuterol Sulfate (Ventolin) 90 mg PRN QID PRN IH wheezing 12/11/20 22:00 UNV Alprazolam (Xanax) 0.5 mg PRN TID PRN PO ANXIETY / AGITATION 12/11/20 22:00 12/11/20 22:45 DC Benztropine Mesylate (Cogentin) 0.5 mg HS PO 12/12/20 21:00 12/11/20 22:45 DC Diphenhydramine HCl (Benadryl) 25 mg PRN Q4HRS PRN PO 2nd choice ANXIETY / AGITATION 12/11/20 22:00 Olanzapine (ZyPREXA ZYDIS) 2.5 mg PRN Q2HRS PRN PO ANXIETY / AGITATION 12/11/20 22:00 12/12/20 05:58 Trazodone HCl (Desyrel) 50 mg PRN QHS PRN PO INSOMNIA, MAY REPEAT X2 12/11/20 22:00 12/25/20 23:32 Fluticasone Propionate (Flonase) 2 spray PRN DAILY PRN NS ALLERGIES 12/11/20 22:30 12/21/20 02:30 Non-Formulary Medication (Ginkgo Biloba [employer] Extract (Ginkgo Biloba)) 30 mg DAILY PO 12/12/20 09:00 UNV Pyridoxine HCl (Vitamin B-6) 50 mg DAILY PO 12/12/20 09:00 12/25/20 08:13 Vitamin E (Vitamin E) 200 unit DAILY PO 12/12/20 09:00 12/25/20 08:14 Albuterol Sulfate (Ventolin Hfa Inhaler) 2 puff PRN QID PRN INH SHORTNESS OF BREATH 12/11/20 22:30 12/21/20 02:30 Alprazolam (Xanax) 0.5 mg TID PO 12/11/20 22:45 12/24/20 16:53 DC 12/24/20 08:52 Benztropine Mesylate (Cogentin) 0.5 mg HS PO 12/11/20 22:45 12/25/20 20:23 Acetaminophen (Tylenol) 650 mg PRN Q6HRS PRN PO MILD PAIN / TEMP > 100.3'F 12/11/20 23:15 Multi-Ingredient Ointment (Analgesic [place]) 1 dinora PRN QID PRN TP MUSCLE PAIN 12/11/20 23:15 Al Hydroxide/Mg Hydroxide (Mylanta Plus Xs) 15 ml PRN AFTMEALHC PRN PO DYSPEPSIA 12/11/20 23:15 Magnesium Hydroxide (Milk Of Magnesia) 2,400 mg PRN QHS PRN PO CONSTIPATION 2ND CHOICE 12/11/20 23:15 Pantoprazole Sodium (Protonix) 40 mg DAILYAC PO 12/13/20 07:30 12/25/20 08:14 Olanzapine (ZyPREXA) 5 mg HS PO 12/14/20 21:00 12/25/20 20:22 Duloxetine HCl (Cymbalta) 30 mg DAILY PO 12/15/20 09:00 12/15/20 18:47 DC 12/15/20 08:01 Divalproex Sodium (Depakote Sprinkles) 250 mg HS PO 12/18/20 21:00 12/18/20 11:37 DC Divalproex Sodium (Depakote Er) 250 mg QHS PO 12/18/20 21:00 12/21/20 17:00 DC 12/20/20 20:01 Polyethylene Glycol (miraLAX) 17 gm PRN DAILY PRN PO CONSTIPATION 1ST CHOICE 12/21/20 15:45 12/21/20 15:51 Divalproex Sodium (Depakote Er) 500 mg QHS PO 12/21/20 21:00 12/22/20 18:07 DC 12/21/20 19:57 Divalproex Sodium (Depakote Er) 1,000 mg QHS PO 12/22/20 21:00 12/22/20 22:14 DC 12/22/20 20:35 Divalproex Sodium (Depakote Er) 500 mg QHS PO 12/23/20 21:00 12/25/20 20:22 Alprazolam (Xanax) 0.5 mg BID PO 12/24/20 21:00 12/25/20 22:00 DC 12/25/20 20:24 Alprazolam (Xanax) 0.5 mg DAILY PO 12/26/20 09:00 12/27/20 10:00 Alprazolam (Xanax) 0.5 mg PRN Q8HRS PRN PO 1st choice ANXIETY / AGITATION 12/27/20 10:00 I have reviewed the current psychotropics carefully including drug interactions. Risk benefit ratio favors no change other than as noted in my dictated progress note. Diagnosis: Problems: (1) Anxiety disorder, unspecified (2) Major depressive disorder with psychotic features (3) Mild cognitive impairment (4) Bipolar disorder, current episode mixed, severe, with psychotic features ERON MEDRANO MD Dec 26, 2020 06:39
--- NOTE | 2020-12-26 07:01 | PDOC ---
Exam Note: Carlos Note: This note is a late entry for 12/25/2020overs elements not covered in my initial note. Subjective: The patient was reviewed at treatment team meeting individually in the morning on 12/25/2020 with Carolann Patrick, Lola Polanco (social security specialist), Rayne, activity therapy and Mary Kay RUTH, discussed and reviewed the chart. She slept for 6-1/4 hours previous night. Appetite is 50% which is an improvement from admission. At times she is withdrawn in groups. Daughter Sue attended the treatment meeting as well. We had lengthy discussion about the patients diagnoses, improvement in abnormal involuntary movements as her bipolar john appears to be stabilized. Also discussed at treatment team meeting with the patients daughter who has also arranged outpatient follow for the patient with the same psychiatrist who is seeing the patients daughter. Review of Systems: No CV, , pulmonary, eye, ENT system symptoms on review. Mental Status Exam: The patient is oriented to herself and situation. I met with her at great length in her room this evening. She had a list of questions written on a paper and I answered all of those for her including what medications she is on and why and discharge and after care plans. Speech is coherent, less pressured. Abstraction fair. Computation impaired. Language function intact. Attention span short. Mood and affect appears improved, less anxious and labile. Laboratory Data: Reviewed. Valproic acid level therapeutic at 67. Liver enzymes unremarkable. Impression: Bipolar disorder manic in partial remission. Anxiety disorder unspecified. Rule out mild cognitive impairment. Plan: Continue current psychotropics including Depakote since level is therapeutic. We may stop the Cogentin in due course. Adjust further as clinically indicated. Discussed transition home to outpatient follow up starting this Tuesday. Assessment: Vital Signs/I&O: Vital Signs Date Time Temp Pulse Resp B/P (MAP) Pulse Ox O2 Delivery O2 Flow Rate FiO2 12/26/20 06:19 97.5 73 18 123/76 (92) 98 Room Air I & O 12/25/20 12/25/20 12/26/20 15:00 23:00 07:00 Intake Total 840 ml 120 ml Balance 840 ml 120 ml Current Medications: Meds: Current Medications Medications (Trade) Dose Ordered Sig/Cathryn Route PRN Reason Start Time Stop Time Status Last Admin Dose Admin Albuterol Sulfate (Ventolin) 90 mg PRN QID PRN IH wheezing 12/11/20 22:00 UNV Alprazolam (Xanax) 0.5 mg PRN TID PRN PO ANXIETY / AGITATION 12/11/20 22:00 12/11/20 22:45 DC Benztropine Mesylate (Cogentin) 0.5 mg HS PO 12/12/20 21:00 12/11/20 22:45 DC Diphenhydramine HCl (Benadryl) 25 mg PRN Q4HRS PRN PO 2nd choice ANXIETY / AGITATION 12/11/20 22:00 Olanzapine (ZyPREXA ZYDIS) 2.5 mg PRN Q2HRS PRN PO ANXIETY / AGITATION 12/11/20 22:00 12/12/20 05:58 Trazodone HCl (Desyrel) 50 mg PRN QHS PRN PO INSOMNIA, MAY REPEAT X2 12/11/20 22:00 12/25/20 23:32 Fluticasone Propionate (Flonase) 2 spray PRN DAILY PRN NS ALLERGIES 12/11/20 22:30 12/21/20 02:30 Non-Formulary Medication (Ginkgo Biloba [place] Extract (Ginkgo Biloba)) 30 mg DAILY PO 12/12/20 09:00 UNV Pyridoxine HCl (Vitamin B-6) 50 mg DAILY PO 12/12/20 09:00 12/25/20 08:13 Vitamin E (Vitamin E) 200 unit DAILY PO 12/12/20 09:00 12/25/20 08:14 Albuterol Sulfate (Ventolin Hfa Inhaler) 2 puff PRN QID PRN INH SHORTNESS OF BREATH 12/11/20 22:30 12/21/20 02:30 Alprazolam (Xanax) 0.5 mg TID PO 12/11/20 22:45 12/24/20 16:53 DC 12/24/20 08:52 Benztropine Mesylate (Cogentin) 0.5 mg HS PO 12/11/20 22:45 12/25/20 20:23 Acetaminophen (Tylenol) 650 mg PRN Q6HRS PRN PO MILD PAIN / TEMP > 100.3'F 12/11/20 23:15 Multi-Ingredient Ointment (Analgesic [place]) 1 dinora PRN QID PRN TP MUSCLE PAIN 12/11/20 23:15 Al Hydroxide/Mg Hydroxide (Mylanta Plus Xs) 15 ml PRN AFTMEALHC PRN PO DYSPEPSIA 12/11/20 23:15 Magnesium Hydroxide (Milk Of Magnesia) 2,400 mg PRN QHS PRN PO CONSTIPATION 2ND CHOICE 12/11/20 23:15 Pantoprazole Sodium (Protonix) 40 mg DAILYAC PO 12/13/20 07:30 12/25/20 08:14 Olanzapine (ZyPREXA) 5 mg HS PO 12/14/20 21:00 12/25/20 20:22 Duloxetine HCl (Cymbalta) 30 mg DAILY PO 12/15/20 09:00 12/15/20 18:47 DC 12/15/20 08:01 Divalproex Sodium (Depakote Sprinkles) 250 mg HS PO 12/18/20 21:00 12/18/20 11:37 DC Divalproex Sodium (Depakote Er) 250 mg QHS PO 12/18/20 21:00 12/21/20 17:00 DC 12/20/20 20:01 Polyethylene Glycol (miraLAX) 17 gm PRN DAILY PRN PO CONSTIPATION 1ST CHOICE 12/21/20 15:45 12/21/20 15:51 Divalproex Sodium (Depakote Er) 500 mg QHS PO 12/21/20 21:00 12/22/20 18:07 DC 12/21/20 19:57 Divalproex Sodium (Depakote Er) 1,000 mg QHS PO 12/22/20 21:00 12/22/20 22:14 DC 12/22/20 20:35 Divalproex Sodium (Depakote Er) 500 mg QHS PO 12/23/20 21:00 12/25/20 20:22 Alprazolam (Xanax) 0.5 mg BID PO 12/24/20 21:00 12/25/20 22:00 DC 12/25/20 20:24 Alprazolam (Xanax) 0.5 mg DAILY PO 12/26/20 09:00 12/27/20 10:00 Alprazolam (Xanax) 0.5 mg PRN Q8HRS PRN PO 1st choice ANXIETY / AGITATION 12/27/20 10:00 I have reviewed the current psychotropics carefully including drug interactions. Risk benefit ratio favors no change other than as noted in my dictated progress note. Diagnosis: Problems: (1) Anxiety disorder, unspecified (2) Major depressive disorder with psychotic features (3) Mild cognitive impairment (4) Bipolar I disorder, recurrent manic episode, in partial remission ERON MEDRANO MD Dec 26, 2020 07:01
[2020-12-26] MEDS: PANTOPRAZOLE 40 MG TABLET. PO SCH (08:09)
[2020-12-26] MEDS: VITAMIN E 200 UNIT CAPSULE. PO SCH (08:09)
[2020-12-26] MEDS: ALPRAZolam 0.5 MG TABLET PO SCH (08:09)
[2020-12-26] MEDS: PYRIDOXINE 50 MG TABLET. PO SCH (08:09)
--- NOTE | 2020-12-26 13:12 | NUR ---
RADHA attempted to return call to Sue pt dtr, to finalize discharge plans and had to leave a message asking her to contact RADHA back when possible.
--- NOTE | 2020-12-26 13:13 | NUR ---
[facility] Social Work Discharge Planning Form Patient Name ABBIE NARAYANAN Admit Date: 11 December 2020 DISCHARGE PLAN Discharge Destination: Pt to discharge home with dtr Care Assessment: N/A Level II Assessment: N/A Transportation: Pt dtr to pick pt up around Special Instructions/Notes: Please fax discharge orders, discharge medications, and discharge summary to the fax numbers listed below. DISCHARGE TO HOME: Address: [address] [place] [address]; [place] [address] Responsible [employer] Party: Sue Chapman Pharmacy: [facility] Contact Information: [address] [place] [address] Psychiatry Follow Up: Gerard Schmidt @ [facility] Contact Information: [address] [place] [address]; [place] [address] Appointment: 01/13 @ 2:30PM Counseling Services Follow-up: [facility] Contact Information: [address]; [place] [address] Appointment: 01/05 @ 1:30PM Primary Care Follow Up: [facility] Contact Information: [address] [place] [address] Fax: [phone] Appointment: Can follow up as needed
[2020-12-26 15:41] VITALS: BP 145/78
[2020-12-26] MEDS: DIVALPROEX ER 500 MG TAB.ER.24H PO SCH (20:31)
[2020-12-26] MEDS: OLANZapine 2.5 MG TABLET PO SCH (20:31)
[2020-12-26] MEDS: BENZTROPINE MESYLATE 0.5 MG TABLET PO SCH (20:31)
--- NOTE | 2020-12-26 21:33 | PDOC ---
Exam Note: Carlos Note: Please also refer to the separate dictated note~for this date of service dictated separately.~Patient seen individually. Discussed the patient with Nursing staff reviewed the chart.~Reviewed interim history and current functioning. Reviewed vital signs,~Labs/ Radiology~and current medications noted below. Continue current treatment with the changes noted in the dictated addendum note Assessment: Vital Signs/I&O: Vital Signs Date Time Temp Pulse Resp B/P (MAP) Pulse Ox O2 Delivery O2 Flow Rate FiO2 12/26/20 15:41 97.3 77 18 145/78 (100) 94 Room Air I & O 12/25/20 12/25/20 12/26/20 15:00 23:00 07:00 Intake Total 840 ml 120 ml Balance 840 ml 120 ml Current Medications: Meds: Current Medications Medications (Trade) Dose Ordered Sig/Cathryn Route PRN Reason Start Time Stop Time Status Last Admin Dose Admin Albuterol Sulfate (Ventolin) 90 mg PRN QID PRN IH wheezing 12/11/20 22:00 UNV Alprazolam (Xanax) 0.5 mg PRN TID PRN PO ANXIETY / AGITATION 12/11/20 22:00 12/11/20 22:45 DC Benztropine Mesylate (Cogentin) 0.5 mg HS PO 12/12/20 21:00 12/11/20 22:45 DC Diphenhydramine HCl (Benadryl) 25 mg PRN Q4HRS PRN PO 2nd choice ANXIETY / AGITATION 12/11/20 22:00 Olanzapine (ZyPREXA ZYDIS) 2.5 mg PRN Q2HRS PRN PO ANXIETY / AGITATION 12/11/20 22:00 12/12/20 05:58 Trazodone HCl (Desyrel) 50 mg PRN QHS PRN PO INSOMNIA, MAY REPEAT X2 12/11/20 22:00 12/25/20 23:32 Fluticasone Propionate (Flonase) 2 spray PRN DAILY PRN NS ALLERGIES 12/11/20 22:30 12/21/20 02:30 Non-Formulary Medication (Ginkgo Biloba [place] Extract (Ginkgo Biloba)) 30 mg DAILY PO 12/12/20 09:00 UNV Pyridoxine HCl (Vitamin B-6) 50 mg DAILY PO 12/12/20 09:00 12/26/20 08:09 Vitamin E (Vitamin E) 200 unit DAILY PO 12/12/20 09:00 12/26/20 08:09 Albuterol Sulfate (Ventolin Hfa Inhaler) 2 puff PRN QID PRN INH SHORTNESS OF BREATH 12/11/20 22:30 12/21/20 02:30 Alprazolam (Xanax) 0.5 mg TID PO 12/11/20 22:45 12/24/20 16:53 DC 12/24/20 08:52 Benztropine Mesylate (Cogentin) 0.5 mg HS PO 12/11/20 22:45 12/26/20 20:45 DC 12/26/20 20:31 Acetaminophen (Tylenol) 650 mg PRN Q6HRS PRN PO MILD PAIN / TEMP > 100.3'F 12/11/20 23:15 Multi-Ingredient Ointment (Analgesic [place]) 1 dinora PRN QID PRN TP MUSCLE PAIN 12/11/20 23:15 Al Hydroxide/Mg Hydroxide (Mylanta Plus Xs) 15 ml PRN AFTMEALHC PRN PO DYSPEPSIA 12/11/20 23:15 Magnesium Hydroxide (Milk Of Magnesia) 2,400 mg PRN QHS PRN PO CONSTIPATION 2ND CHOICE 12/11/20 23:15 Pantoprazole Sodium (Protonix) 40 mg DAILYAC PO 12/13/20 07:30 12/26/20 08:09 Olanzapine (ZyPREXA) 5 mg HS PO 12/14/20 21:00 12/26/20 20:31 Duloxetine HCl (Cymbalta) 30 mg DAILY PO 12/15/20 09:00 12/15/20 18:47 DC 12/15/20 08:01 Divalproex Sodium (Depakote Sprinkles) 250 mg HS PO 12/18/20 21:00 12/18/20 11:37 DC Divalproex Sodium (Depakote Er) 250 mg QHS PO 12/18/20 21:00 12/21/20 17:00 DC 12/20/20 20:01 Polyethylene Glycol (miraLAX) 17 gm PRN DAILY PRN PO CONSTIPATION 1ST CHOICE 12/21/20 15:45 12/21/20 15:51 Divalproex Sodium (Depakote Er) 500 mg QHS PO 12/21/20 21:00 12/22/20 18:07 DC 12/21/20 19:57 Divalproex Sodium (Depakote Er) 1,000 mg QHS PO 12/22/20 21:00 12/22/20 22:14 DC 12/22/20 20:35 Divalproex Sodium (Depakote Er) 500 mg QHS PO 12/23/20 21:00 12/26/20 20:31 Alprazolam (Xanax) 0.5 mg BID PO 12/24/20 21:00 12/25/20 22:00 DC 12/25/20 20:24 Alprazolam (Xanax) 0.5 mg DAILY PO 12/26/20 09:00 12/27/20 10:00 12/26/20 08:09 Alprazolam (Xanax) 0.5 mg PRN Q8HRS PRN PO 1st choice ANXIETY / AGITATION 12/27/20 10:00 Current Medications Medications (Trade) Dose Ordered Sig/Cathryn Route PRN Reason Start Time Stop Time Status Last Admin Dose Admin Alprazolam (Xanax) 0.5 mg DAILY PO 12/26/20 09:00 12/27/20 10:00 12/26/20 08:09 I have reviewed the current psychotropics carefully including drug interactions. Risk benefit ratio favors no change other than as noted in my dictated progress note. Diagnosis: Problems: (1) Anxiety disorder, unspecified (2) Major depressive disorder with psychotic features (3) Mild cognitive impairment (4) Bipolar I disorder, recurrent manic episode, in partial remission ERON MEDRANO MD Dec 26, 2020 21:33
[2020-12-26] MEDS: traZODone 50 MG TABLET. PO PRN ×2 (22:20→23:48)
--- NOTE | 2020-12-26 23:52 | NUR ---
Patient is located in her room for assessments and medications, awake in bed. Wants to be told what each medication is and what it is for. No involuntary movements noted during assessment. Compliant with medications whole. Denies SI. Denies any pain or discomfort. Will continue to monitor.
[2020-12-27] MEDS ORDERED: ACET325T21 PO (01:57)
[2020-12-27] MEDS ORDERED: DIVA500T17 PO (02:00)
[2020-12-27] MEDS ORDERED: OLAN5TAB67 PO (02:03)
[2020-12-27] MEDS ORDERED: POLY17PO5 PO (02:08)
[2020-12-27 05:54] VITALS: BP 164/72
[2020-12-27] MEDS: VITAMIN E 200 UNIT CAPSULE. PO SCH (08:10)
[2020-12-27] MEDS: PANTOPRAZOLE 40 MG TABLET. PO SCH (08:10)
[2020-12-27] MEDS: PYRIDOXINE 50 MG TABLET. PO SCH (08:10)
[2020-12-27] MEDS: ALPRAZolam 0.5 MG TABLET PO SCH (08:27)
[2020-12-27] MEDS ORDERED: ALPRAZolam 0.5 MG TABLET PO PRN (10:00)
--- NOTE | 2020-12-27 10:22 | NUR ---
Transition Record was faxed to follow-up provider with the following elements: Reason for admission, procedures, tests, principal diagnosis, pending studies, patient instructions, 13/12 contact information for unit, phone number to obtain pending test results, plan for follow-up care, physician follow-up, advanced directive information, and medication list with dose, duration and instructions. This information was included in the following documents: History and physical, lab results, study results, progress notes, social work planning form, DC instruction form, patient visit summary, and medication reconciliation form. Date & time record faxed: 12/27/20 AT [phone], [phone], [phone] Record faxed to: [facility] [place] and Gerard Schmidt, psychiatrist, in [place] Record discussed with/ report given to: daughter Sue and patient as she is going home and not to a facility
--- NOTE | 2020-12-27 22:38 | PDOC ---
Exam Note: Carlos Note: Please also refer to the separate dictated note~for this date of service dictated separately.~Patient seen individually. Discussed the patient with Nursing staff reviewed the chart.~Reviewed interim history and current functioning. Reviewed vital signs,~Labs/ Radiology~and current medications noted below. Continue current treatment with the changes noted in the dictated addendum note Assessment: Vital Signs/I&O: Vital Signs Date Time Temp Pulse Resp B/P (MAP) Pulse Ox O2 Delivery O2 Flow Rate FiO2 12/27/20 05:54 98.0 80 18 164/72 (102) 97 12/26/20 15:41 Room Air I & O 12/26/20 12/26/20 12/27/20 15:00 23:00 07:00 Intake Total 600 ml 480 ml Balance 600 ml 480 ml Current Medications: Meds: Current Medications Medications (Trade) Dose Ordered Sig/Cathryn Route PRN Reason Start Time Stop Time Status Last Admin Dose Admin Albuterol Sulfate (Ventolin) 90 mg PRN QID PRN IH wheezing 12/11/20 22:00 UNV Alprazolam (Xanax) 0.5 mg PRN TID PRN PO ANXIETY / AGITATION 12/11/20 22:00 12/11/20 22:45 DC Benztropine Mesylate (Cogentin) 0.5 mg HS PO 12/12/20 21:00 12/11/20 22:45 DC Diphenhydramine HCl (Benadryl) 25 mg PRN Q4HRS PRN PO 2nd choice ANXIETY / AGITATION 12/11/20 22:00 12/27/20 10:28 DC Olanzapine (ZyPREXA ZYDIS) 2.5 mg PRN Q2HRS PRN PO ANXIETY / AGITATION 12/11/20 22:00 12/27/20 10:28 DC 12/12/20 05:58 Trazodone HCl (Desyrel) 50 mg PRN QHS PRN PO INSOMNIA, MAY REPEAT X2 12/11/20 22:00 12/27/20 10:28 DC 12/26/20 23:48 Fluticasone Propionate (Flonase) 2 spray PRN DAILY PRN NS ALLERGIES 12/11/20 22:30 12/27/20 10:28 DC 12/21/20 02:30 Non-Formulary Medication (Ginkgo Biloba [place] Extract (Ginkgo Biloba)) 30 mg DAILY PO 12/12/20 09:00 UNV Pyridoxine HCl (Vitamin B-6) 50 mg DAILY PO 12/12/20 09:00 12/27/20 10:28 DC 12/27/20 08:10 Vitamin E (Vitamin E) 200 unit DAILY PO 12/12/20 09:00 12/27/20 10:28 DC 12/27/20 08:10 Albuterol Sulfate (Ventolin Hfa Inhaler) 2 puff PRN QID PRN INH SHORTNESS OF BREATH 12/11/20 22:30 12/27/20 10:28 DC 12/21/20 02:30 Alprazolam (Xanax) 0.5 mg TID PO 12/11/20 22:45 12/24/20 16:53 DC 12/24/20 08:52 Benztropine Mesylate (Cogentin) 0.5 mg HS PO 12/11/20 22:45 12/26/20 20:45 DC 12/26/20 20:31 Acetaminophen (Tylenol) 650 mg PRN Q6HRS PRN PO MILD PAIN / TEMP > 100.3'F 12/11/20 23:15 12/27/20 10:28 DC Multi-Ingredient Ointment (Analgesic Need[place]) 1 dinora PRN QID PRN TP MUSCLE PAIN 12/11/20 23:15 12/27/20 10:28 DC Al Hydroxide/Mg Hydroxide (Mylanta Plus Xs) 15 ml PRN AFTMEALHC PRN PO DYSPEPSIA 12/11/20 23:15 12/27/20 10:28 DC Magnesium Hydroxide (Milk Of Magnesia) 2,400 mg PRN QHS PRN PO CONSTIPATION 2ND CHOICE 12/11/20 23:15 12/27/20 10:28 DC Pantoprazole Sodium (Protonix) 40 mg DAILYAC PO 12/13/20 07:30 12/27/20 10:28 DC 12/27/20 08:10 Olanzapine (ZyPREXA) 5 mg HS PO 12/14/20 21:00 12/27/20 10:28 DC 12/26/20 20:31 Duloxetine HCl (Cymbalta) 30 mg DAILY PO 12/15/20 09:00 12/15/20 18:47 DC 12/15/20 08:01 Divalproex Sodium (Depakote Sprinkles) 250 mg HS PO 12/18/20 21:00 12/18/20 11:37 DC Divalproex Sodium (Depakote Er) 250 mg QHS PO 12/18/20 21:00 12/21/20 17:00 DC 12/20/20 20:01 Polyethylene Glycol (miraLAX) 17 gm PRN DAILY PRN PO CONSTIPATION 1ST CHOICE 12/21/20 15:45 12/27/20 10:28 DC 12/21/20 15:51 Divalproex Sodium (Depakote Er) 500 mg QHS PO 12/21/20 21:00 12/22/20 18:07 DC 12/21/20 19:57 Divalproex Sodium (Depakote Er) 1,000 mg QHS PO 12/22/20 21:00 12/22/20 22:14 DC 12/22/20 20:35 Divalproex Sodium (Depakote Er) 500 mg QHS PO 12/23/20 21:00 12/27/20 10:28 DC 12/26/20 20:31 Alprazolam (Xanax) 0.5 mg BID PO 12/24/20 21:00 12/25/20 22:00 DC 12/25/20 20:24 Alprazolam (Xanax) 0.5 mg DAILY PO 12/26/20 09:00 12/27/20 10:00 DC 12/26/20 08:09 Alprazolam (Xanax) 0.5 mg PRN Q8HRS PRN PO 1st choice ANXIETY / AGITATION 12/27/20 10:00 12/27/20 10:28 DC I have reviewed the current psychotropics carefully including drug interactions. Risk benefit ratio favors no change other than as noted in my dictated progress note. Diagnosis: Problems: (1) Anxiety disorder, unspecified (2) Major depressive disorder with psychotic features (3) Mild cognitive impairment (4) Bipolar I disorder, recurrent manic episode, in partial remission ERON MEDRANO MD Dec 27, 2020 22:38
--- NOTE | 2020-12-28 22:22 | DS ---
DATE OF DISCHARGE: 12/27/2020 ADDENDUM The patient was seen and inadvertently dictated the discharge date is 12/26/2020. In fact, the patient was discharged on 12/27/2020. MIKE DR: Victor Manuel TID: [id number]
--- NOTE | 2020-12-28 22:25 | DS ---
DATE OF DISCHARGE: 12/26/2020 DISCHARGE SUMMARY/PSYCHIATRIC PROGRESS NOTE This is a late entry, date of service, 12/26/2020, covers elements not covered in my initial note. REASON FOR ADMISSION: Please refer to the admission history for details. Briefly, the patient is a 70-year-old female referred to us after she was noted to be getting extremely paranoid, psychotic, manic with repeated manic episodes at home where she lives with her daughter. Previously, the patient [place], but was paranoid, delusional with repeated manic episodes. She had multiple losses over the last few years of family members. She had decreased appetite, not sleeping. Symptoms are worse in approximately 3 weeks prior to admission and she had failed outpatient psychiatric interventions with the daughter and patient's sister moved in with her at home to try and stabilize her, but she has failed outpatient psychiatric interventions resulting in this referral. SIGNIFICANT FINDINGS AND CLINICAL COURSE: Following admission, the patient was seen daily individually by myself from a psychiatric standpoint, medical followup, Dr. Aleman/Dr. Gunderson. The patient is extremely hyperverbal, manic, paranoid, having involuntary movements, which the daughter felt was contributed by the Seroquel she had taken prior to admission, which had been stopped. Nevertheless, on initial assessment, this appeared consistent with her anxiety, agitation and a bipolar manic episode. Dr. Newberry, Neurology was consulted and the patient has bipolar disorder, treated and the movement disorder appeared to subside. She was finally stabilized on a combination of Xanax 0.5 mg b.i.d., which was reduced from 0.5 t.i.d. with a plan to further taper and stop it. She is also on Zyprexa 5 mg at bedtime, Cogentin 0.5 mg at bedtime was stopped prior to discharge. The patient remained on Benadryl 25 mg q. 4 hours p.r.n., extrapyramidal side effects, Zyprexa p.r.n., trazodone 50 mg at bedtime p.r.n., may repeat x2 and Depakote ER 500 mg at bedtime. Blood level was therapeutic at this dosage. REVIEW OF SYSTEMS: Prior to discharge on 12/26/2020, no CV, , pulmonary, eye, ENT system symptoms on review. MENTAL STATUS EXAMINATION: The patient is reasonably oriented. Speech coherent, less pressured. Abstraction fair. Computation impaired. Language function intact. Mood and affect improved. She was less hyperverbal, less anxious and less paranoid. LABORATORY DATA: Reviewed. FINAL DIAGNOSES: Bipolar 1 disorder, manic, in remission; anxiety disorder, unspecified. Rest unchanged from admission. DISCHARGE MEDICATIONS: Please refer to the MRAD. Outpatient psychiatric followup with physician's esl instructional assistant with the daughter was seen for her own bipolar 2 disorder. Medical followup with the patient's primary care physician. Time for discharge day management greater than [address]: Victor Manuel TID: [id number]
--- NOTE | 2020-12-29 06:46 | PDOC ---
Exam Note: Carlos Note: This note is a late entry for 12/26/2020overs elements not covered in my initial note. Subjective: The patient was seen face to face in the evening of 12/26/2020 with Magnolia RUTH, discussed and reviewed the chart. She slept for 7 hours previous night. Overall the patient is less manic and less hyperverbal, coming out more and interacting with others in the dayroom. She spends much time with another patient on the unit who is cognitively more intact than any other demented patients. Review of Systems: No CV, , pulmonary, eye, ENT system symptoms on review. Mental Status Exam: The patient is oriented to herself and situation. I met with her at length in her room this evening. She had a list of questions written on a piece paper about her diagnoses, medications all of which I answered for her but she was not entirely convinced that she has bipolar disorder. We discussed discharge for 12/27 and after care plans. Speech is coherent, less pressured. Abstraction fair. Computation impaired. Language function intact. Attention span short. Mood and affect improved. Laboratory Data: Reviewed. Impression: Bipolar disorder manic in partial remission. Anxiety disorder unspecified. Rule out mild cognitive impairment. Plan: Continue current psychotropics unchanged. Assessment: Vital Signs/I&O: Vital Signs Date Time Temp Pulse Resp B/P (MAP) Pulse Ox O2 Delivery O2 Flow Rate FiO2 12/27/20 05:54 98.0 80 18 164/72 (102) 97 12/26/20 15:41 Room Air Current Medications: Meds: Current Medications Medications (Trade) Dose Ordered Sig/Cathryn Route PRN Reason Start Time Stop Time Status Last Admin Dose Admin Albuterol Sulfate (Ventolin) 90 mg PRN QID PRN IH wheezing 12/11/20 22:00 UNV Alprazolam (Xanax) 0.5 mg PRN TID PRN PO ANXIETY / AGITATION 12/11/20 22:00 12/11/20 22:45 DC Benztropine Mesylate (Cogentin) 0.5 mg HS PO 12/12/20 21:00 12/11/20 22:45 DC Diphenhydramine HCl (Benadryl) 25 mg PRN Q4HRS PRN PO 2nd choice ANXIETY / AGITATION 12/11/20 22:00 12/27/20 10:28 DC Olanzapine (ZyPREXA ZYDIS) 2.5 mg PRN Q2HRS PRN PO ANXIETY / AGITATION 12/11/20 22:00 12/27/20 10:28 DC 12/12/20 05:58 Trazodone HCl (Desyrel) 50 mg PRN QHS PRN PO INSOMNIA, MAY REPEAT X2 12/11/20 22:00 12/27/20 10:28 DC 12/26/20 23:48 Fluticasone Propionate (Flonase) 2 spray PRN DAILY PRN NS ALLERGIES 12/11/20 22:30 12/27/20 10:28 DC 12/21/20 02:30 Non-Formulary Medication (Ginkgo Biloba [place] Extract (Ginkgo Biloba)) 30 mg DAILY PO 12/12/20 09:00 UNV Pyridoxine HCl (Vitamin B-6) 50 mg DAILY PO 12/12/20 09:00 12/27/20 10:28 DC 12/27/20 08:10 Vitamin E (Vitamin E) 200 unit DAILY PO 12/12/20 09:00 12/27/20 10:28 DC 12/27/20 08:10 Albuterol Sulfate (Ventolin Hfa Inhaler) 2 puff PRN QID PRN INH SHORTNESS OF BREATH 12/11/20 22:30 12/27/20 10:28 DC 12/21/20 02:30 Alprazolam (Xanax) 0.5 mg TID PO 12/11/20 22:45 12/24/20 16:53 DC 12/24/20 08:52 Benztropine Mesylate (Cogentin) 0.5 mg HS PO 12/11/20 22:45 12/26/20 20:45 DC 12/26/20 20:31 Acetaminophen (Tylenol) 650 mg PRN Q6HRS PRN PO MILD PAIN / TEMP > 100.3'F 12/11/20 23:15 12/27/20 10:28 DC Multi-Ingredient Ointment (Analgesic [place]) 1 dinora PRN QID PRN TP MUSCLE PAIN 12/11/20 23:15 12/27/20 10:28 DC Al Hydroxide/Mg Hydroxide (Mylanta Plus Xs) 15 ml PRN AFTMEALHC PRN PO DYSPEPSIA 12/11/20 23:15 12/27/20 10:28 DC Magnesium Hydroxide (Milk Of Magnesia) 2,400 mg PRN QHS PRN PO CONSTIPATION 2ND CHOICE 12/11/20 23:15 12/27/20 10:28 DC Pantoprazole Sodium (Protonix) 40 mg DAILYAC PO 12/13/20 07:30 12/27/20 10:28 DC 12/27/20 08:10 Olanzapine (ZyPREXA) 5 mg HS PO 12/14/20 21:00 12/27/20 10:28 DC 12/26/20 20:31 Duloxetine HCl (Cymbalta) 30 mg DAILY PO 12/15/20 09:00 12/15/20 18:47 DC 12/15/20 08:01 Divalproex Sodium (Depakote Sprinkles) 250 mg HS PO 12/18/20 21:00 12/18/20 11:37 DC Divalproex Sodium (Depakote Er) 250 mg QHS PO 12/18/20 21:00 12/21/20 17:00 DC 12/20/20 20:01 Polyethylene Glycol (miraLAX) 17 gm PRN DAILY PRN PO CONSTIPATION 1ST CHOICE 12/21/20 15:45 12/27/20 10:28 DC 12/21/20 15:51 Divalproex Sodium (Depakote Er) 500 mg QHS PO 12/21/20 21:00 12/22/20 18:07 DC 12/21/20 19:57 Divalproex Sodium (Depakote Er) 1,000 mg QHS PO 12/22/20 21:00 12/22/20 22:14 DC 12/22/20 20:35 Divalproex Sodium (Depakote Er) 500 mg QHS PO 12/23/20 21:00 12/27/20 10:28 DC 12/26/20 20:31 Alprazolam (Xanax) 0.5 mg BID PO 12/24/20 21:00 12/25/20 22:00 DC 12/25/20 20:24 Alprazolam (Xanax) 0.5 mg DAILY PO 12/26/20 09:00 12/27/20 10:00 DC 12/26/20 08:09 Alprazolam (Xanax) 0.5 mg PRN Q8HRS PRN PO 1st choice ANXIETY / AGITATION 12/27/20 10:00 12/27/20 10:28 DC I have reviewed the current psychotropics carefully including drug interactions. Risk benefit ratio favors no change other than as noted in my dictated progress note. Diagnosis: Problems: (1) Anxiety disorder, unspecified (2) Major depressive disorder with psychotic features (3) Mild cognitive impairment (4) Bipolar I disorder, recurrent manic episode, in partial remission ERON MEDRANO MD Dec 29, 2020 06:46
== END 2020-12-27 10:15 | disposition home or self-care (01) | DRG 885 ==
LOC: GEROPSY 20:18
PROVIDERS: ADMIT Psychiatry & Neurology Psychiatry; ATTEND Psychiatry & Neurology Psychiatry
DX: F31.64 Bipolar disorder, current episode mixed, severe, with psychotic features (principal); F41.1 Generalized anxiety disorder; E78.5 Hyperlipidemia, unspecified; F03.90 Unspecified dementia, unspecified severity, without behavioral disturbance, psychotic disturbance, mood disturbance, and anxiety; F63.9 Impulse disorder, unspecified; G47.00 Insomnia, unspecified; J45.909 Unspecified asthma, uncomplicated; K21.9 Gastro-esophageal reflux disease without esophagitis; M19.90 Unspecified osteoarthritis, unspecified site; M79.7 Fibromyalgia; Z20.822 Contact with and (suspected) exposure to COVID-19; Z79.899 Other long term (current) drug therapy
CPT/HCPCS: 36415; 80053; 80061; 80164; 81001; 82306; 82607; 82947; 83036; 83540; 83550; 83735; 84436; 84443; 84480; 85025; 85379; 86592; 87086; 93005; U0003; U0005; 97530